=== PATIENT | male | born 1975 | race Caucasian/White ===

== ENCOUNTER 2017-10-30 08:00 | Emergency (ER) | payer OTHER ==
[2017-10-30 08:35] LABS: #Basophils 0.1 thou/uL (0.0-0.2); #Eosinphils 0.2 thou/uL (0.0-0.7); #Lymphocytes 2.1 thou/uL (1.20-3.40); #Monocytes 0.5 thou/uL (0.11-0.59); #Neutrophils 7.3 thou/uL (1.40-6.50); %Basophils 0.7 % (0.0-1.0); %Eosinophils 2.4 % (0.0-10.0); %Lymphocytes 20.1 % (21.0-51.0); %Monocytes 5.2 % (0.0-10.0); %Neutrophils 71.6 % (42.0-75.0); Hemoglobin 14.3 g/dL (14.0-18.0); Mean Corpuscular HGB CONC 32.3 g/dL (32.0-36.0); Mean Corpuscular Hemoglobin 29.6 pg (27.0-31.0); Mean Corpuscular Volume 91.7 fl (80.0-94.0); Mean Platelet Volume 9.7 fL (7.4-10.4); Platelet Count 151 thou/uL (130-400); Red Blood Cell (RBC) Count 4.84 mill/uL (4.70-6.10); White Blood Cell (WBC) Count 10.2 thou/uL (4.8-10.8)
[2017-10-30 08:54] LABS: ALT (SGPT) 25 U/L (8-55); AST (SGOT) 25 U/L (5-34); Albumin 4.7 g/dL (3.5-5.0); Alkaline Phosphatase 120 U/L (40-150); Anion Gap 16 mmol/L (10-20); BUN (Urea Nitrogen) 11 mg/dL (8.9-20.6); Bilirubin, Total 0.5 mg/dL (0.2-1.2); CK (CPK) 78 U/L (30-200); Calc. Creatinine Clearance 0 mL/min (70-130); Calcium 9.3 mg/dL (7.8-10.44); Carbon Dioxide 24 mmol/L (22-29); Chloride 102 mmol/L (98-107); Estimated GFR-MDRD 75; Globulin 4.2 g/dL (2.4-3.5); Glucose 125 mg/dL (70-105); Potassium 3.8 mmol/L (3.5-5.1); Protein, Total 8.9 g/dL (6.0-8.3); Sodium 138 mmol/L (136-145)
[2017-10-30 08:58] LABS: CKMB 1.1 ng/mL (0-6.6)
[2017-10-30 09:14] LABS: Troponin I Less than 0.010 ng/mL (< 0.028)
--- NOTE | 2017-10-30 09:24 | RAD ---
CHEST 1 VIEW: HISTORY: Chest pain. COMPARISON: 12/04/16. FINDINGS: Cardiac silhouette was magnified by projection. Pulmonary vasculature is upper limits of normal. Me diastinum is midline. There is no lobar consolidation or evidence of pneumothorax. telemetry monitor lead overlies the chest. IMPRESSION: No active cardiopulmonary abnormalities are demonstrated. POS: [facility]
[2017-10-30 10:49] LABS: Bilirubin Negative (Negative); Blood, Urine Negative (Negative); Clarity CLEAR (Clear); Glucose, Urine (Dipstick) Negative (Negative); Leukocyte Negative (Negative); Nitrite Negative (Negative); Protein, Urine (Dipstick) Negative (Neg-Trace); Urobilinogen 0.2 mg/dL (0.2-1.0); pH, Urine 6.5 (5.0-9.0)
[2017-10-30] MEDS ORDERED: Nitroglycerin 2% Ointment 1 INCH/1 GM Packet ONE (12:18)
[2017-10-30] MEDS ORDERED: Iopamidol 370 76% 50 ML VIAL FS ONE (13:03)
[2017-10-30] MEDS ORDERED: ISOVUE-370 76%-LOCM 1 ML ONE (13:03)
--- NOTE | 2017-10-30 15:03 | CT ---
CT ABDOMEN AND PELVIS WITH IV AND ORAL CONTRAST: History: Right lower quadrant pain. Comparison: 06-01-17 FINDINGS: Lung bases are clear. The liver, spleen, kidneys, adrenal glands, and pancreas have a normal CT appea padmini. No enlarged lymph nodes or free fluid are apparent. Appendix is not inflamed. IMPRESSION: No significant abnormalities are demonstrated. POS: [facility]
[2017-10-30 15:18] LABS: CKMB 1.2 ng/mL (0-6.6); Troponin I Less than 0.010 ng/mL (< 0.028)
--- NOTE | 2017-11-05 18:04 | EKG ---
Test Reason : CHEST PAIN Blood Pressure : / mmHG Vent. Rate : 090 BPM Atrial Rate : 090 BPM P-R Int : 176 ms QRS Dur : 080 ms QT Int : 372 ms P-R-T Axes : 081 059 062 degrees QTc Int : 455 ms Normal sinus rhythm Minimal voltage criteria for LVH, may be normal variant Nonspecific ST and T wave abnormality Abnormal ECG Confirmed by ANAM DIXON, ELVIA ([id number]), editor in chief ROSETTE MCGARRY ([id number]) on 11/05/2017 6:03:28 PM Referred By: ANAM Confirmed By:ELVIA MENDIETA MD
== END 2017-10-30 15:43 | disposition home or self-care (01) ==
LOC: ERS 08:00
DX: B34.9 Viral infection, unspecified (principal); R07.9 Chest pain, unspecified; R10.31 Right lower quadrant pain
CPT/HCPCS: 36415; 71045; 74177; 80053; 81003; 82274; 82550; 82553; 84484; 85025; 93005; 94760; 96360; 96361

== ENCOUNTER 2018-04-13 03:15 | Observation (INO) | payer BC ==
[2018-04-13 03:50] LABS: #Eosinphils 0.3 thou/uL (0.0-0.7); #Lymphocytes 1.9 thou/uL (1.20-3.40); #Monocytes 0.7 thou/uL (0.11-0.59); %Basophils 0.3 % (0.0-1.0); %Eosinophils 2.8 % (0.0-10.0); %Lymphocytes 19.3 % (21.0-51.0); %Monocytes 6.7 % (0.0-10.0); %Neutrophils 70.9 % (42.0-75.0); Hemoglobin 12.9 g/dL (14.0-18.0); Mean Corpuscular HGB CONC 34.2 g/dL (32.0-36.0); Mean Corpuscular Hemoglobin 29.7 pg (27.0-31.0); Mean Corpuscular Volume 86.9 fL (78.0-98.0); Mean Platelet Volume 9.1 fL (7.4-10.4); Platelet Count 155 thou/uL (130-400); RBC Distribution Width 13.2 % (11.5-14.5); Red Blood Cell (RBC) Count 4.32 mill/uL (4.70-6.10); White Blood Cell (WBC) Count 9.8 thou/uL (4.8-10.8)
[2018-04-13 04:16] LABS: ALT (SGPT) 24 U/L (8-55); AST (SGOT) 18 U/L (5-34); Albumin 4.3 g/dL (3.5-5.0); Alkaline Phosphatase 109 U/L (40-150); Anion Gap 16 mmol/L (10-20); BUN (Urea Nitrogen) 12 mg/dL (8.9-20.6); Bilirubin, Total 0.4 mg/dL (0.2-1.2); CK (CPK) 69 U/L (30-200); Calc. Creatinine Clearance 0 mL/min (70-130); Calcium 9.1 mg/dL (7.8-10.44); Carbon Dioxide 23 mmol/L (22-29); Chloride 103 mmol/L (98-107); Estimated GFR-MDRD 66; Globulin 3.4 g/dL (2.4-3.5); Glucose 156 mg/dL (70-105); Lipase 32 U/L (8-78); Potassium 3.7 mmol/L (3.5-5.1); Protein, Total 7.7 g/dL (6.0-8.3); Sodium 138 mmol/L (136-145)
[2018-04-13 04:19] LABS: CKMB 1.1 ng/mL (0-6.6); Troponin I Less than 0.010 ng/mL (< 0.028)
[2018-04-13] MEDS ORDERED: Nitroglycerin 0.4 MG TAB (25 Tab Bottle) ONE (05:50)
[2018-04-13] MEDS ORDERED: Morphine 4 MG/ML VIAL ONE (06:48)
[2018-04-13] MEDS ORDERED: Ondansetron HCl/PF 4 MG/2 ML Vial ONE (06:49)
[2018-04-13] MEDS ORDERED: Ondansetron ODT 4 MG TAB ONE (06:50)
[2018-04-13] MEDS ORDERED: Lorazepam 2 MG/ML VIAL ONE (07:34)
[2018-04-13 08:42] LABS: Troponin I Less than 0.010 ng/mL (< 0.028)
--- NOTE | 2018-04-13 08:53 | HP ---
DATE OF ADMISSION: 04/13/2018 HISTORY OF PRESENT ILLNESS: This is a 43-year-old white male who presents to the ER with chest pain. The patient states he was doing well until 2:00 a.m. this morning. While watching TV, he developed acute onset of chest pain, shortness of breath and diaphoresis. He has no prior cardiac history. Rosy albarran does not report any history of trauma or excessive physical activity. He does work as a truck driv er. He lives alone, does not smoke. He also complains of a right lower quadrant abdominal pain, whi ch has been present for 2 weeks. He also has been having bloody stools in which he showed me a pictu re with impressive blood in his underclothing. He has had constipation off and on, but not on a regu lar basis. His appetite has been okay. He is hungry at this time. No reported fever, nausea or vom iting. PAST MEDICAL HISTORY: Speech impairment. PAST SURGICAL HISTORY: Ear surgery in 1999. FAMILY HISTORY: Parents are healthy as well as siblings. Dad is a dentist. Mom is a RN. SOCIAL HISTORY: He does not smoke, does not drink. He is single. He is a armored truck driver. He has no children. ALLERGIES: None. REVIEW OF SYSTEMS: As above. MEDICATIONS: None. LABORATORY DATA AND IMAGING: White count 9.8, H&H is 12 and 37. Electrolytes normal. Creatinine 1. 20, BUN 12, blood sugar 156. Troponin one less than 0.010. Lipase 32. Liver functions normal. CTA and chest x-ray with final reports pending, but reported negative. ASSESSMENT: 1. Chest pain, rule out myocardial infarction. The chest pain seems to be right-sided and musculosk eletal in origin. 2. Right lower quadrant abdominal pain. The patient was seen by MIKE Renteria and was referred to GI. The patient is yet to see GI. 3. Bloody stools. Etiology is unknown. Genitourinary exam is unremarkable. PLAN: 1. Chest pain, rule out myocardial infarction. Serial troponins. 2. Echocardiogram. 3. CT of the abdomen and pelvis. 4. GI consult.
[2018-04-13 09:19] VITALS: BMI 30.2
[2018-04-13] MEDS ORDERED: Ondansetron HCl/PF 4 MG/2 ML Vial IVP PRN (09:24)
[2018-04-13] MEDS ORDERED: Ondansetron ODT 4 MG TAB PO PRN (09:24)
[2018-04-13] MEDS ORDERED: Acetaminophen 325 MG TAB PO PRN (09:24)
--- NOTE | 2018-04-13 09:25 | RAD ---
CHEST ONE VIEW: Comparison: 10-30-17 History: Chest pressure and pain. FINDINGS: Normal cardiac silhouette. The pulmonary vessels and hilum are normal. No consolidation or mass. Hog Raiser anel changes in the lung bases. No pneumothorax or osseous abnormality. IMPRESSION: No acute cardiopulmonary process. POS: [facility]
--- NOTE | 2018-04-13 09:34 | CT ---
CT PULMONARY ANGIOGRAM WITH IV CONTRAST AND 3D MIP RECONSTRUCTIONS: Date: 04-13-18 Provided Clinical History: Chest pain. FINDINGS: Comparison is made with a study dated 03-16-14. There is no evidence for central or segmental pulmonary embolus. The heart, pericardium, and great ve ssels demonstrate an unremarkable CT appearance. The lungs are free of significant opacity. There is no pleural fluid or pneumothorax apparent. The airway appears patent and of normal caliber. There is no evidence for thoracic lymph node enlargement. The visualized portions of the upper abdomen demonst rates no evidence for an acute process. The osseous demonstrates no concerning lytic or blastic lesio ns. IMPRESSION: No evidence for central or segmental pulmonary embolus. POS: [facility]
[2018-04-13] MEDS ORDERED: ISOVUE-370 76%-LOCM 1 ML ONE (11:25)
[2018-04-13] MEDS: Sodium Chloride 0.9% 1,000 ML IV SCH (11:27)
[2018-04-13 11:29] LABS: Troponin I Less than 0.010 ng/mL (< 0.028)
[2018-04-13] MEDS ORDERED: GoLYTELY 4,000 ml Bottle PO SCH (17:30)
--- NOTE | 2018-04-13 19:13 | CON ---
DATE OF CONSULTATION: 04/13/2018 PRIMARY UNDERWATER HUNTER TRAPPER: Dr. Miguel Beal. REASON FOR CONSULTATION: Chest pain. HISTORY OF PRESENT ILLNESS: Mr. Holbrook is a very pleasant 43-year-old white gentleman who comes to the hospital for chest pain. He was at home at 2:00 a.m. in the morning watching TV and developed acute onset of chest pain on the left side upper chest, shortness of breath and diaphoresis. He got worried and decided to come in for evaluation. So far, his troponins have been negative. He had a very similar presentation back in 11/2016 at which time he had a stress test that was abnormal showing a reversible defect on the mid anterior wall. Dr. Beal saw him at that time and offered a heart catheterization and looking at the note apparently, he was amenable to having this done, but then discharge summary shows that he actually left AMA and heart catheterization was not done as he refused to have it at that time. Today, he tells me that he is amenable to having this done as he continues to have the episodes of chest pain; however, he also shows me a picture on his phone of all the blood that he has been seen coming out of his rectum. He has pictures of several tissue papers with good amount of blood in them and he has noted some lower abdominal pain and right upper quadrant pain as well. He has been doing this on and off for the last 2-3 weeks the bleeding. Currently, he has been having chest pain, nonstop for the last day. He states he gets a little bit better when he gets pain medications. PAST MEDICAL HISTORY: Speech impairment. PAST SURGICAL HISTORY: Ear surgery in the year 1999. FAMILY HISTORY: Noncontributory. Father is a dentist. Mother is an RN. SOCIAL HISTORY: No alcohol, tobacco or drugs. Single. 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 ALLERGIES: No known drug allergies. OUTPATIENT MEDICATIONS: None. REVIEW OF SYSTEMS: A 12-point review of systems was done and is all negative unless stated in history of present illness. PHYSICAL EXAMINATION: VITAL SIGNS: Temperature 97.5, pulse 71, respiration rate 12, satting 96% on room air, blood pressure 131/72. GENERAL: Awake, alert, oriented x3, in no distress, has difficulty with speech , but this is consistent with a speech impediment. HEENT: Normocephalic, atraumatic. NECK: Supple. LUNGS: Clear. CARDIOVASCULAR: S1, S2, no S3 or S4, no murmurs or rubs. ABDOMEN: Soft, positive bowel sounds. EXTREMITIES: No edema. SKIN: Warm and dry. LABORATORY WORK: Reviewed. His CBC with a white count of 9.8, hemoglobin of 12.9 with a baseline of 14.3, he was at 12.7 just a month ago. Platelet count of 155. Chemistry was unremarkable except for glucose of 156. Troponin has been undetectable x3 with a normal CK-MB, normal LFTs and normal lipase. EKG was unremarkable. CT of the chest done earlier today shows no evidence of pulmonary embolus, otherwise unremarkable. No evidence of lymph node enlargement. Upper abdomen showed no evidence of acute process. ASSESSMENT AND PLAN: Chest pain: He has an abnormal stress test done last year. Repeating a stress would not provide any further risk stratification. Most likely, he just needs a heart catheterization. I would think it is prohibitive at this time. If he has bleeding, GI has been consulted and I would wait to have them evaluate the patient and hopefully do a colonoscopy to make sure there are no active areas of bleeding. Will need a [facility] in the future. I spoke with him at length with the risks and benefits of the procedure. The risks include, but not limited to stroke, NV, , bleeding, need for blood transfusion, limb loss, organ loss. He verbalized understanding of this and agrees to proceed. I told him this is only going to happen once he has his colonoscopy to see if this is a problem with bleeding. Thank you for letting us participate in the care of your patient. Dr. Beal , his primary applications chemist, will follow up in the morning. GUS
--- NOTE | 2018-04-14 02:02 | CON ---
DATE OF CONSULTATION: 04/13/2018 REFERRING PHYSICIAN: Dr. Siddharth De Los Santos. REASON FOR CONSULTATION: GI bleeding. HISTORY OF PRESENT ILLNESS: Isidro Holbrook is a 43-year-old male hospitalized with chest pain . The patient appears very comfortable. He is awake, alert, and communicative. The patient has deepika e speech impairment and history is somewhat difficult to understand sometime. The admitting history and physical by Dr. Siddharth De Los Santos reviewed. He appears very healthy young male who has had no medical problems in the past. The patient has had speech impediment, which is chronic in nature. The patie nt has had no major medical illness in the past. The patient came to ER because of chest pains which occurred during watching TV last night. The pain was actually over the anterior chest. He also has some difficulty breathing to begin with. The patient has had no similar episodes in the past. Ther e has been no history of any acid reflux, dysphagia, odynophagia. He denies any upper abdominal pain . His plain EKG was normal. His cardiac enzymes negative. He also had a CT angiogram, which came b ack negative for PE. The patient is actually feeling better and the pain is actually almost vague an d is causing very mild discomfort. His bowel movements are regular. There is no other relevant hist ory. The patient gives history of rectal bleeding to Dr. De Los Santos a couple of weeks ago. The bleeding was bright red and he had moderate amount of blood. Although he has history of constipation, he say s he does not strain that much. The bleeding was painless and bright in color. Apparently, the blee ding occurs out of a couple of days off and on. He has no more bleeding afterwards. There is no fam isai history of any colon cancer. No other relevant history. ALLERGIES: None. PAST MEDICAL HISTORY: Speech impediment. PAST SURGICAL HISTORY: Ear surgery in 1999. FAMILY HISTORY: Totally unremarkable. REVIEW OF SYSTEMS: DAG COATER: No TIA, chronic headache, no seizure disorder, no syncope. Respiratory Sys tem: No history of chronic cough, hemoptysis, dyspnea. Cardiovascular System: Chest pain, which washburn s been resolving. Also, mild dyspnea. He has no orthopnea, PND, or palpitations. Gastrointestinal: History of hematochezia, no abdominal pain, nausea, or vomiting. Genitourinary: No dysuria, hemat uria, or frequent urination. Musculoskeletal/Endocrine/Neuro/Psychiatry: Not relevant. PHYSICAL EXAMINATION: GENERAL: He appears very comfortable in no distress. His speech is impaired. VITAL SIGNS: Afebrile, pulse is 71, blood pressure 130/72. HEENT: Conjunctivae clear. NECK: Supple. No adenitis or thyromegaly noted. CARDIOVASCULAR SYSTEM: First and second heart sounds normal. LUNGS: Clear to auscultation. ABDOMEN: Soft. Abdomen is nontender. There is no organomegaly or masses. EXTREMITIES: Reveal no edema. LABORATORY DATA: CBC shows WBC 9800, hemoglobin 12.9, hematocrit 37.6, MCV 86.9, platelet count 155, 000, polymorphs 70, lymphocytes 19, monocytes 6. Chemistry panel: Glucose 156, lytes are normal. B UN is 12, creatinine 1.20. AST 18, ALT 24, alkaline phosphatase is 109. CPK 1.1. Troponin less lydia n 0.010, albumin is 4.3. EKG does not show any acute changes. CLINICAL IMPRESSION: 1. A 43-year-old male with history of chest pain. His EKG and enzymes are normal. He pain has . 2. Hematochezia, etiology unclear. 3. Speech impediment. I did talk to Mr. Holbrook about having a colonoscopy, because of hematochezia an d following EGD. He is agreeable. I will plan for the procedure tomorrow.
[2018-04-14] MEDS: Sodium Chloride 0.9% 1,000 ML IV SCH (07:35)
--- NOTE | 2018-04-14 08:25 | PRG ---
DATE OF SERVICE: 04/14/2018 at 8:00 a.m. SUBJECTIVE: The patient's pain remains very vague. No complaints of chest pain at this time, but he states it sort of comes and goes and has less intensity at this time. Abdominal pain remains. He did drink his GoLYTELY for his colonoscopy. However, he states he has not had a bowel movement. Due to his speech impediment is very difficult to get a clear history on patient. OBJECTIVE: VITAL SIGNS: Temperature 97.3, pulse 78, respirations 18, blood pressure 115/60. GENERAL: The patient does not appear in any distress. HEART: Regular rate and rhythm. LUNGS: Clear. ABDOMEN: Soft, normal bowel sounds. LABORATORY: None. ASSESSMENT: 1. Chest pain. Further evaluation pending GI workup. The patient does have a history of abnormal s tress test. Dr. Lane or Dr. Beal may want to do a cardiac catheterization depending on the GI evaluation. 2. Abdominal pain. The patient drank his prep and is being transferred this morning for his EGD and colonoscopy by Dr. Ruby. 3. Speech impediment. 4. History of bloody stools. PLAN: 1. EGD and colonoscopy this morning. 2. Possibly may have a cardiac catheterization depending on GI evaluation.
[2018-04-14] MEDS ORDERED: Fentanyl 100 MCG/2 ML VIAL ONE (11:05)
[2018-04-14] MEDS ORDERED: Lidocaine 1% PF 5 ML VIAL ONE (14:01)
[2018-04-14] MEDS ORDERED: PROPOFOL 200 MG/20 ML VIAL ONE (14:01)
[2018-04-14 15:35] VITALS: BP 128/73; TEMP 97.2
--- NOTE | 2018-04-14 16:29 | CT ---
CT ABDOMEN AND PELVIS WITH IV AND ORAL CONTRAST 04/14/18 HISTORY: Hematochezia. COMPARISON: 06/01/17 HISTORY: Lung bases are clear. Liver, spleen, kidneys, adrenal glands, and pancreas have a normal CT appearanc e. No enlarged lymph nodes or free fluid. Urinary bladder is unremarkable. No evidence of colon infla mmation. IMPRESSION: No significant abnormalities are demonstrated. POS: [facility]
--- NOTE | 2018-04-15 02:37 | DIS ---
DATE OF ADMISSION: 04/13/2018 DATE OF DISCHARGE: 04/14/2018 DISCHARGE DIAGNOSES: 1. Peptic ulcer disease. 2. Abdominal pain. 3. Chest pain. 4. Speech impediment. DISCHARGE MEDICATIONS: Omeprazole 40 daily, #60. FOLLOWUP: Dr. Siddharth De Los Santos in 1 week. BRIEF HISTORY: This is a 43-year-old white male who presents to the emergency room with chest pain. Doing well until about 2:00 a.m. in the morning. While watching TV, developed acute onset of chest pain with shortness of breath and diaphoresis. He has no cardiac history. He does not report any hi story of trauma or excessive physical activity. He does work as a truck loader. He also showed pict ures of blood in the stool on his phone and he also complains of having chronic abdominal pain, espec ially right lower quadrant. HOSPITAL COURSE: The patient received a CT angio of the chest in the emergency room, which was found to be unremarkable. The patient is a very difficult historian due to his speech impediment. He pro connie limited history. Dr. Ruby was consulted and an EGD revealed peptic ulcer disease. Colono scopy revealed large amounts of stool. Evidently, the patient poured out the colonoscopy prep in the sink. He also has a history of abnormal Cardiolite stress test, in which he refused a cardiac cath in the past. Right now, he is chest pain free, feeling much better. He will be discharged on omepra zole. He will follow up in the office in one week. He does not appear to have any type of cardiac i ssue. He was also seen by Dr. Lane.
--- NOTE | 2018-04-15 03:08 | OP ---
DATE OF SURGERY: 04/14/2018 OPERATIVE PROCEDURE: Esophagogastroduodenoscopy with biopsy. PREOPERATIVE DIAGNOSIS: Atypical chest pain. POSTOPERATIVE DIAGNOSES: 1. Esophageal mucosa appears normal except for mild mucosal hyperemia. 2. Gastric ulcer with gastritis over the proximal stomach. 3. Antral erosion of the gastric antrum. 4. Normal duodenum. PROCEDURE NOTE: The patient was placed on his left lateral position and was given sedation by Anesth esia Department. A Pentax video gastroscope under direct vision was passed down the oropharynx, past the GE junction, into the stomach, and subsequently into the descending duodenum. The esophageal mu cosa appeared normal over the upper two-thirds. Over the distal esophagus, the mucosa is hyperemic, but no other erosions or any ulceration seen. Upon entering the stomach, the patient was found to washburn ve an ulceration over the gastric body over the proximal stomach. Also, the mucosa was edematous and erythematous. Over the gastric antrum, patient had a small erosion. , no pathology seen. The duodenal bulb, descending duodenum, no pathology seen. A biopsy of the gastric antrum and gastric devang dy. RECOMMENDATION: 1. Omeprazole 40 once a day. 2. If the LISETH test comes positive, treat accordingly.
--- NOTE | 2018-04-15 04:57 | OP ---
DATE OF PROCEDURE: 04/14/2018 OPERATIVE PROCEDURE: Colonoscopy, incomplete. PREOPERATIVE DIAGNOSIS: Hematochezia. POSTOPERATIVE DIAGNOSES: 1. No hemorrhoids seen. 2. The mucosa appears normal. The patient had large amount of solid fecal material right from the s igmoid colon area all the way to the descending colon. The scope could not be advanced and pass arou nd 60 cm, because of the solid stool. PROCEDURE IN DETAIL: The patient was placed on his left lateral position and underwent sedation by A nesthesia Department. A rectal exam was done before the scope was advanced into the rectum. No lesi on was felt on rectal exam. A Pentax video colonoscope was introduced into rectum and advanced into the sigmoid colon area. The rectal mucosa appeared normal. The patient found to have solid stool ri ght at the sigmoid colon area. Water was used to irrigate and wash out, and I was able to advance th e scope to a distance of about 65-70 cm. However, around 70 cm , the patient found to have a la rge amount of solid stool, and the scope could not be advanced . The mucosa appeared normal and no colitis seen. There is no pathology seen in the left colon; however, the exam was limited becaus e of the solid stool. The retroflexion of the scope in the rectum showed no lesion. RECOMMENDATIONS: 1. Diet as tolerated. 2. Omeprazole 40 once a day. 3. The patient can be discharged home and bring him back as an outpatient for a colonoscopy at a [facility] er date.
[2018-04-15] MEDS ORDERED: Pantoprazole 40 MG GRANULES PACKET PO SCH (09:00)
== END 2018-04-14 17:40 | disposition home or self-care (01) ==
LOC: ERS 03:15 → 2SW 08:39
PROVIDERS: ADMIT Family Medicine; ATTEND Internal Medicine Gastroenterology
PROC: 0DJD8ZZ Inspection of Lower Intestinal Tract, Via Natural or Artificial Opening Endoscopic (ICD-10-PCS; principal; 2018-04-14)
PROC: 0DB78ZX Excision of Stomach, Pylorus, Via Natural or Artificial Opening Endoscopic, Diagnostic (ICD-10-PCS; 2018-04-14)
DX: K92.1 Melena (principal); K27.9 Peptic ulcer, site unspecified, unspecified as acute or chronic, without hemorrhage or perforation; R47.9 Unspecified speech disturbances
CPT/HCPCS: 36415; 71045; 71275; 74177; 80053; 82550; 82553; 83690; 84484; 85025; 88305; 88312; 93005; 93306; 94760; 96361; 96374; 96375; 96376; G0378; J2001; J2060; J2270; J2405; J2704; J3010; Q0162

== ENCOUNTER 2018-04-16 01:53 | Emergency (ER) | payer BC ==
[2018-04-16] MEDS ORDERED: Pantoprazole 40 MG VIAL ONE (02:20)
[2018-04-16] MEDS ORDERED: Mag-Al Plus 1200 MG/1200 MG/120 MG/30 ML UDCUP ONE (02:20)
[2018-04-16] MEDS ORDERED: Lidocaine Viscous Sol 2% 15 ml UD Cup ONE (02:20)
[2018-04-16 02:23] LABS: PTT 30.9 SEC (22.9-36.1); Prothrombin Time 13.4 SEC (12.0-14.7)
[2018-04-16 02:30] LABS: #Basophils 0.1 thou/uL (0.0-0.2); #Eosinphils 0.2 thou/uL (0.0-0.7); #Lymphocytes 1.1 thou/uL (1.20-3.40); #Monocytes 0.5 thou/uL (0.11-0.59); #Neutrophils 6.7 thou/uL (1.40-6.50); %Basophils 0.7 % (0.0-1.0); %Eosinophils 2.8 % (0.0-10.0); %Lymphocytes 12.8 % (21.0-51.0); %Monocytes 6.1 % (0.0-10.0); %Neutrophils 77.6 % (42.0-75.0); Hemoglobin 12.3 g/dL (14.0-18.0); Mean Corpuscular HGB CONC 34.3 g/dL (32.0-36.0); Mean Corpuscular Hemoglobin 28.4 pg (27.0-31.0); Mean Corpuscular Volume 82.7 fL (78.0-98.0); Mean Platelet Volume 12.1 fL (7.4-10.4); PLT Morphology Comment Appears Adequate; Platelet Count 135 thou/uL (130-400); RBC Distribution Width 12.6 % (11.5-14.5); Red Blood Cell (RBC) Count 4.35 mill/uL (4.70-6.10); White Blood Cell (WBC) Count 8.7 thou/uL (4.8-10.8)
[2018-04-16 02:34] LABS: CKMB 0.8 ng/mL (0-6.6); Troponin I Less than 0.010 ng/mL (< 0.028)
[2018-04-16] MEDS ORDERED: Famotidine 20 MG TAB ONE (03:03)
[2018-04-16] MEDS ORDERED: Acetaminophen 500 MG TAB ONE (03:03)
[2018-04-16 03:27] LABS: ALT (SGPT) 22 U/L (8-55); AST (SGOT) 16 U/L (5-34); Albumin 4.2 g/dL (3.5-5.0); Alkaline Phosphatase 105 U/L (40-150); Anion Gap 16 mmol/L (10-20); BUN (Urea Nitrogen) 11 mg/dL (8.9-20.6); Bilirubin, Total 0.3 mg/dL (0.2-1.2); CK (CPK) 70 U/L (30-200); Calc. Creatinine Clearance 0 mL/min (70-130); Carbon Dioxide 23 mmol/L (22-29); Chloride 102 mmol/L (98-107); Estimated GFR-MDRD 67; Globulin 3.2 g/dL (2.4-3.5); Glucose 160 mg/dL (70-105); Potassium 3.8 mmol/L (3.5-5.1); Protein, Total 7.4 g/dL (6.0-8.3); Sodium 137 mmol/L (136-145)
--- NOTE | 2018-04-16 08:20 | RAD ---
RADIOGRAPH CHEST 1 VIEW: HISTORY: 43-year-old male with intermittent chest pain and dyspnea. FINDINGS: There is no air space density, pulmonary edema, or pneumothorax. The lateral costophrenic angles are sharp. IMPRESSION: No acute pulmonary findings. clementine [] POS: [facility]
--- NOTE | 2018-04-18 08:20 | OP ---
DATE OF PROCEDURE: 04/18/2018 SURGEON: Ariel Ruby M.D. OPERATIVE PROCEDURE: Colonoscopy. PREOPERATIVE DIAGNOSIS: A 43-year-old male with hematochezia. He is undergoing a colonosc opy. POSTOPERATIVE DIAGNOSIS: Normal colonoscopy. PROCEDURE IN DETAIL: The patient was placed on his left lateral position and was given sedation by A nesthesia Department. A rectal exam was done before the scope was advanced into the rectum. No othe r lesion felt on rectal exam. Also, careful exam of the perianal opening showed no fissure or hemorr hoids. A Pentax video colonoscope was introduced in the rectum and advanced all the way to the cecum . The prep was good. The mucosa appears normal throughout the colon with normal vascular pattern. The appendiceal orifice, ileocecal valve, cecum, no pathology seen. Cecum, ascending colon, hepatic flexure, transverse colon, splenic flexure, no pathology seen. The descending colon, no pathology se en. The sigmoid colon, no lesions seen. Retroflexion of scope in the rectum, no lesions. Also, on inspection of the anal canal showed no fissure or hemorrhoids. ENDOSCOPIC IMPRESSION: History of hematochezia, but negative exam. It is possible the patient may b e had constipation, straining and had a mucosal tear. At the present time, the exam was completely b enign. RECOMMENDATIONS: 1. High fiber diet. 2. Metamucil.
== END 2018-04-16 03:47 | disposition home or self-care (01) ==
LOC: SCSER 01:53
DX: K27.9 Peptic ulcer, site unspecified, unspecified as acute or chronic, without hemorrhage or perforation (principal)
CPT/HCPCS: 71045; 80053; 82274; 82553; 84484; 85025; 85610; 85730; 93005; 94760; C9113

== ENCOUNTER 2018-04-16 11:25 | Observation (INO) | payer BC ==
[2018-04-16 12:17] LABS: #Lymphocytes 0.4 thou/uL (1.20-3.40); #Neutrophils 7.1 thou/uL (1.40-6.50); %Eosinophils 0.5 % (0.0-10.0); %Lymphocytes 5.2 % (21.0-51.0); %Monocytes 0.4 % (0.0-10.0); %Neutrophils 93.9 % (42.0-75.0); Hemoglobin 12.3 g/dL (14.0-18.0); Mean Corpuscular HGB CONC 32.2 g/dL (32.0-36.0); Mean Corpuscular Hemoglobin 28.8 pg (27.0-31.0); Mean Corpuscular Volume 89.5 fL (78.0-98.0); Mean Platelet Volume 9.2 fL (7.4-10.4); Platelet Count 128 thou/uL (130-400); RBC Distribution Width 13.2 % (11.5-14.5); Red Blood Cell (RBC) Count 4.25 mill/uL (4.70-6.10); White Blood Cell (WBC) Count 7.6 thou/uL (4.8-10.8)
[2018-04-16 12:33] LABS: ALT (SGPT) 21 U/L (8-55); AST (SGOT) 16 U/L (5-34); Alkaline Phosphatase 103 U/L (40-150); Anion Gap 17 mmol/L (10-20); BUN (Urea Nitrogen) 10 mg/dL (8.9-20.6); Bilirubin, Total 0.2 mg/dL (0.2-1.2); Calc. Creatinine Clearance 0 mL/min (70-130); Calcium 8.3 mg/dL (7.8-10.44); Carbon Dioxide 16 mmol/L (22-29); Chloride 108 mmol/L (98-107); Estimated GFR-MDRD 72; Globulin 3.2 g/dL (2.4-3.5); Glucose 220 mg/dL (70-105); Potassium 4.2 mmol/L (3.5-5.1); Protein, Total 7.2 g/dL (6.0-8.3); Sodium 137 mmol/L (136-145)
[2018-04-16 12:37] LABS: Troponin I Less than 0.010 ng/mL (< 0.028)
[2018-04-16] MEDS ORDERED: Nitroglycerin 2% Ointment 1 INCH/1 GM Packet ONE (12:37)
[2018-04-16 13:05] LABS: CK (CPK) 73 U/L (30-200)
[2018-04-16 17:12] LABS: Troponin I Less than 0.010 ng/mL (< 0.028)
[2018-04-16] MEDS ORDERED: Ondansetron ODT 4 MG TAB SL PRN (17:35)
[2018-04-16] MEDS ORDERED: Ondansetron HCl/PF 4 MG/2 ML Vial IVP PRN (17:35)
[2018-04-16 18:10] VITALS: BMI 30.9
[2018-04-16] MEDS: Acetaminophen 325 MG TAB PO PRN (19:00)
[2018-04-16 19:23] LABS: Troponin I Less than 0.010 ng/mL (< 0.028)
[2018-04-16] MEDS ORDERED: Mag-Al 1200 mg/1200 mg/30 ML UDCUP PO PRN (22:33)
--- NOTE | 2018-04-17 02:15 | HP ---
PRIMARY CARE PHYSICIAN: Dr. Myra Hearn and Dr. Siddharth De Los Santos. HISTORY OF PRESENT ILLNESS: This is a 43-year-old white male who presented to emergency department w ith persistent chest pain. Patient states that he has been in his usual state of health until last w [place] when he developed substernal chest pain while he was watching TV. He was admitted on 04/13/2018 and discharged on 04/14/2018 for similar symptoms. He underwent an extensive workup at that time, he ruled out for an RI with negative cardiac enzymes. He had a normal echocardiogram. He was seen by Dr. Lane at that time who recommended cardiac catheterization, the patient declined it at that time . He also had bloody stools and GI workup was done with Dr. Ruby. The patient had abnormal EGD , which revealed gastritis and a gastric ulcer as well as antral erosions in the stomach as well, but normal duodenum. He was started on omeprazole at that time to aid in healing. Occult test was done at that time, but the results are not available and was discharged home, but has had multiple emerge ncy room visits since that time due to his chest pain. At this point, he appears ready to have furth er workup to rule out coronary artery disease, is now being admitted for further evaluation. Of note , he also had a CT angiogram on the last admission which was normal. PAST MEDICAL HISTORY: New onset of peptic ulcer disease. PAST SURGICAL HISTORY: EGD and incomplete colonoscopy on last admission. MEDICATIONS: Include omeprazole 40 mg once daily. SOCIAL HISTORY: No smoking, no alcohol, no drug use. 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 FAMILY HISTORY: Mom with gallstone disease. Father with bypass and heart disease. He works as a de [employer]ist. ALLERGIES: None known. REVIEW OF SYSTEMS: As per the history of present illness. He denies any recent fevers, chills or re cent illness. HEENT: He denies headache, visual or hearing changes. Cardiac: As per the history o f present illness. Pulmonary: Denies cough or hemoptysis. Gastrointestinal: As per the history of present illness. He admits to some stomach pains worse as his chest pain. Genitourinary: No dysur ia or hematuria. Neurologic: No weakness, seizures, or syncope. Psychiatric: He denies anxiety. Denies depression. He is not happy with his job. Denies suicidal ideation. He just wants his pain to go away. OBJECTIVE: VITAL SIGNS: In the emergency department, temperature 98.5, pulse of 100, respirations 18, blood pre ssure 145/76, pulse ox is 97% on room air. GENERAL: He is awake and alert. He appears anxious in bed. He does have a speech impediment. HEENT: Mucosa is moist. NECK: Supple. HEART: Regular rate and rhythm. LUNGS: Clear bilaterally. ABDOMEN: With some epigastric tenderness as well as right lower quadrant tenderness. No rebound, no guarding, no hepatosplenomegaly. EXTREMITIES: No clubbing, cyanosis, or edema. 2+ peripheral pulses bilaterally. LABORATORY DATA: White blood cell count 7.6, hemoglobin and hematocrit 12.3 and 38.0, platelets of 1 28,000. PT, PTT were normal. Sodium 137, potassium 4.2, chloride 108, CO2 16, BUN and creatinine 10 and 1.11 with a GFR of 72. Serum glucose was elevated at 220, calcium of 8.3. AST and ALT are norm al. Bilirubin was normal. Cardiac enzymes are negative x3. Fasting cholesterol in March was elevate d at 217 with LDL of 155, HDL of 38. Her lipase was 38. IMAGING: Past workup was reviewed. A chest x-ray showed no active disease. A CT angiogram of the c hest on 04/13/2018, revealed no acute disease. Again, EGD revealed gastritis and gastric ulcer. No active bleeding. A stress test from 11/2016, revealed ejection fraction of 62% and reversibility in the mid anterior left ventricle. ASSESSMENT AND PLAN: 1. This is a 43-year-old gentleman with persistent chest pain. He has had an extensive workup, but is needing further risk stratification with a cardiac catheterization. He has ruled out for myocardi al infarction. We will consult Cardiology and hopefully be able to perform a cardiac catheterization soon to rule out coronary artery disease. 2. Peptic ulcer disease. We will continue proton-pump inhibitor IV twice a day. 3. Hyperlipidemia. We will start statin therapy as well.
[2018-04-17] MEDS: Acetaminophen 325 MG TAB PO PRN (03:11)
[2018-04-17 05:07] LABS: Hemoglobin A1c 5.4 % (4.0-6.0)
--- NOTE | 2018-04-17 07:31 | PRG ---
DATE OF SERVICE: 04/17/2018 SUBJECTIVE: The patient continues to complain of chest pain, requesting pain medications, particular ly morphine. The patient complains of chest pain, substernal tightness, with no obvious triggers occ urring at rest. Evidently a nitroglycerin patch was placed on his chest. However, he removed it. OBJECTIVE: VITAL SIGNS: Temperature 97.6, pulse 69, respirations 16, pulse ox 95, blood pressure 115/63. HEART: Regular rate and rhythm. LUNGS: Clear. ABDOMEN: Soft. EXTREMITIES: No edema. LABORATORY: Cardiac enzymes were all negative x3. Blood sugar 220, 130. ASSESSMENT: 1. Chest pain, rule out myocardial infarction. 2. Peptic ulcer disease, status post EGD last visit. 3. Questionable history of alcohol abuse according to the nurses. 4. Speech impediment. PLAN: 1. Consider element of alcoholism and depression. 2. Patient agreeable to cardiac catheterization after declining twice. 3. Might consider treating the patient for depression.
[2018-04-17] MEDS ORDERED: Non-Formulary Item 1 EACH (Omeprazole [Omeprazole] 40 MG) PO SCH (09:00)
[2018-04-17] MEDS: Pantoprazole 40 MG VIAL IVP SCH ×2 (11:46→20:34)
[2018-04-17] MEDS ORDERED: Bisacodyl 5 MG TAB PO SCH (13:30)
[2018-04-17] MEDS ORDERED: GoLYTELY 4,000 ml Bottle PO SCH (13:30)
[2018-04-17] MEDS ORDERED: Acetaminophen 325 MG TAB PO PRN (20:09)
[2018-04-17] MEDS: Atorvastatin Calcium 40 MG TAB PO SCH (20:33)
[2018-04-17] MEDS: Nitroglycerin 0.4 MG TAB (25 Tab Bottle) SL PRN ×3 (21:25→21:35)
--- NOTE | 2018-04-18 01:15 | CON ---
DATE OF CONSULTATION: 04/17/2018 HISTORY: Isidro Holbrook is a 43-year-old white male I initially evaluated in 2016. He has had multiple previous admissions for chest discomfort. In 06/2008 , he had chest discomfort which was felt to be due to costochondritis. Cardiac enzymes were unremarkable. In 03/2014, he was admitted with chest discomfort. He was discharged and returned 3 days later again complaining of chest pain. He underwent Cardiolite testing, which revealed a fixed defect involving the inferior wall, but no evidence of reversible ischemia. It was felt that probably represented diaphragmatic attenuation. He was again admitted in 11/2016 with chest pressure which was somewhat of a pleuritic component. Episodes were lasted up to 1 hour and did not seem to be related to exertion. Cardiac enzymes were negative. He underwent adenosine Cardiolite testing and had a 5.4 second episode of complete heart block without any escape rhythm. Cardiolite revealed a fixed defect in the inferolateral wall and reversible ischemia in the anterior left ventricle. With that finding , it was recommended he undergo cardiac catheterization; however, he signed out AMA. He again was admitted earlier this month on 04/13 with increased chest discomfort. He also developed gastrointestinal bleeding. He underwent CT angiogram of the chest which was unremarkable. He underwent EGD which revealed peptic ulcer disease. However, this was not bleeding. He also underwent colonoscopy which revealed a large amount of retained stool. Apparently, he had poured his colonoscopy prep in the sink. He was discharged to be further evaluated as an outpatient. The patient now returns stating he wishes to proceed with cardiac catheterization. However, the etiology of his lower gastrointestinal bleed is still not known. PAST MEDICAL HISTORY: Peptic ulcer disease, speech impediment and hypercholesterolemia. No history of diabetes or hypertension. MEDICATIONS: Omeprazole 40 mg daily. ALLERGIES: None. SOCIAL HISTORY: He does not smoke or drink, although there is some question about his alcohol intake. He works as a trucking contractor. FAMILY HISTORY: Negative for coronary artery disease. REVIEW OF SYSTEMS: Twelve-point review of systems is unremarkable. PHYSICAL EXAMINATION: VITAL SIGNS: Blood pressure 139/74, pulse of 86. HEENT: PERRL. NECK: Supple. CHEST: Clear. CARDIAC: S1, S2 normal, without any S3, S4 or murmurs. ABDOMEN: Normal bowel sounds, without tenderness or organomegaly. EXTREMITIES: Revealed no clubbing, cyanosis or edema. NEUROLOGIC: Grossly intact. IMPRESSION: 1. Lower gastrointestinal bleeding. 2. Peptic ulcer disease. 3. Inferolateral fixed defect and ischemia in the mid anterior wall on Cardiolite testing in 11/2016. This has never been evaluated. 4. Atypical chest discomfort with constant chest pressure lasting all day. 5. Hypercholesterolemia. PLAN: The etiology of his lower gastrointestinal bleed needs to be determined. He is currently undergoing another valve prep and hopefully an etiology will be found. Once we had better assessment of his gastrointestinal bleeding, then consideration will be given to cardiac catheterization. Risks of catheterization were discussed including , myocardial infarction, CVA, transfusion, limb loss, renal loss, allergic reaction, etc. Risks of stenting were discussed including , myocardial infarction, emergent CABG, restenosis , stent thrombosis. With his recurrent lower gastrointestinal bleed, I would only place a bare metal stent. GUS
[2018-04-18] MEDS: Nitroglycerin 0.4 MG TAB (25 Tab Bottle) SL PRN ×3 (02:45→03:07)
[2018-04-18] MEDS ORDERED: Ketorolac Tromethamine 30 MG/ML VIAL IVP SCH (03:45)
[2018-04-18] MEDS ORDERED: Promethazine HCl 25 MG/ML VIAL IM PRN (07:59)
[2018-04-18] MEDS ORDERED: Ondansetron HCl/PF 4 MG/2 ML Vial IVP PRN (07:59)
[2018-04-18] MEDS ORDERED: Promethazine HCl 25 MG/ML VIAL SLOW IVP PRN (07:59)
--- NOTE | 2018-04-18 08:50 | PRG ---
DATE OF SERVICE: 04/18/2018 SUBJECTIVE: No incidents reported last night by nurses. The patient has remained relatively stable. No complaints of chest pain or shortness of breath. OBJECTIVE: VITAL SIGNS: Temperature 98.4, pulse 77, respirations 16, pulse ox 99, blood pressure 109/68. HEART: Regular rate and rhythm. LUNGS: Clear. ABDOMEN: Soft, nontender. LABORATORY DATA: None. PROCEDURE: Colonoscopy performed this morning, completely normal colon. No source of bleeding. Dis cussed with Dr. Ruby. ASSESSMENT: 1. Chest pain, rule out myocardial infarction. He has been cleared by GI. Discussed with Dr. Jeremiah culp. Plan for cardiac catheterization in the a.m. 2. Peptic ulcer disease shown on EGD, small gastric ulcer noted. 3. Alcohol abuse reported by nurses. 4. Speech impediment. PLAN: 1. N.p.o. past midnight. 2. Consent for cardiac catheterization in the a.m. 3. Consider treating depression. 4. May also have to discuss alcohol use.
[2018-04-18] MEDS: Pantoprazole 40 MG VIAL IVP SCH ×2 (09:04→20:30)
[2018-04-18] MEDS ORDERED: PROPOFOL 200 MG/20 ML VIAL ONE (10:08)
[2018-04-18] MEDS ORDERED: Lidocaine 1% PF 5 ML VIAL ONE (10:08)
--- NOTE | 2018-04-18 12:29 | CON ---
DATE OF CONSULTATION: 04/17/2018 REFERRING PHYSICIAN: Siddharth De Los Santos M.D. REASON FOR CONSULTATION: Hematochezia. HISTORY OF PRESENT ILLNESS: Mr. Isidro Holbrook is a 43-year-old male, seen over a week ago be cause of atypical chest pain and hematochezia. He had an EGD done on Tuesday, which revealed a shallo w gastric ulcer, gastritis over the proximal stomach. A colonoscopy was attempted; however, he had n ot cleaned out a large amount of solid stool. The patient signed out, again he does not want to have any cardiac catheterization and went home over the weekend. He came back to the ER with chest pain and also hematochezia. The patient has no abdominal pain. There is no perianal discomfort. Althoug h, he has history of hematochezia, his blood count has really not dropped down since the last admissi on. CBC done on 04/16/2018 showed WBC of 8700, hemoglobin 12.3, hematocrit 36, a repeat one again sh ows the same numbers, nothing change. On 04/13/2018, he had a hemoglobin 12.9 and 12.5 respectively. So although he has had history of hematochezia, his platelet count has really not dropped down. He has no relevant history. ALLERGIES: None. MEDICAL ILLNESSES: Speech impairment. The rest of the history is from the last admission. PHYSICAL EXAMINATION: GENERAL: He appears very comfortable. He is awake, alert, and communicative. VITAL SIGNS: Afebrile, pulse is 76, blood pressure is 130/82. HEENT: Conjunctivae clear. CARDIOVASCULAR SYSTEM AND LUNGS: Within normal limits. ABDOMEN: Soft. No organomegaly. No tenderness. No masses. EXTREMITIES: Reveal no edema. CLINICAL IMPRESSION: Hematochezia, no drop in hemoglobin. He is mildly anemic and the numbers are r eally not change since last admission. A colonoscopy attempted on Tuesday04/14/2018 was incomplete b ecause of retained stool. I will plan to do a colonoscopy tonight and now at that time it was around 10:00. He is drinking the [employer] prep. He still has some left. Plan is to finish the prep tonig ht and hopefully a colonoscopy can be performed earlier tomorrow morning.
[2018-04-18] MEDS: HYDROcodone/Acetaminophen 7.5/325 mg Tablet PO PRN ×2 (15:44→21:56)
[2018-04-18] MEDS ORDERED: Communication Order-Pharmacy FS SCH (17:00)
[2018-04-18] MEDS: Sodium Chloride 0.9% 1,000 ML IV SCH (17:38)
[2018-04-18] MEDS: Atorvastatin Calcium 40 MG TAB PO SCH (20:30)
[2018-04-19] MEDS: Sodium Chloride 0.9% 1,000 ML IV SCH (04:14)
[2018-04-19] MEDS: Nitroglycerin 0.4 MG TAB (25 Tab Bottle) SL PRN (06:33)
[2018-04-19] MEDS ORDERED: Lidocaine 1% (PF) 30 ML VIAL ONE (06:33)
[2018-04-19] MEDS ORDERED: Heparin 10,000 UNITS/1 ML VIAL ONE (06:33)
[2018-04-19] MEDS ORDERED: Iopamidol 370 76% 100 ML VIAL ONE (06:52)
[2018-04-19] MEDS ORDERED: Midazolam HCl 2 mg/2 ml Vial ONE (07:20)
[2018-04-19] MEDS ORDERED: Fentanyl 100 MCG/2 ML VIAL ONE (07:20)
[2018-04-19] MEDS ORDERED: Protamine Sulfate 50 MG/5 ML VIAL ONE (07:43)
[2018-04-19] MEDS ORDERED: Acetaminophen/Codeine 30-300mg Tablet PO PRN ×2 (07:55)
[2018-04-19] MEDS ORDERED: Nitroglycerin 0.4 MG TAB (25 Tab Bottle) SL PRN (07:55)
[2018-04-19] MEDS ORDERED: traMADol HCl 50 MG TAB PO PRN (07:55)
[2018-04-19] MEDS ORDERED: Sodium Chloride 0.9% 1,000 ML IV SCH (07:56)
[2018-04-19] MEDS ORDERED: Sodium Chloride 0.9% 200 ML IV SCH (08:00)
[2018-04-19] MEDS: Pantoprazole 40 MG VIAL IVP SCH (09:08)
--- NOTE | 2018-04-19 11:34 | OP ---
DATE OF PROCEDURE: 04/18/2018 SURGEON: Ariel Ruby M.D. OPERATIVE PROCEDURE: Colonoscopy. PREOPERATIVE DIAGNOSIS: A 43-year-old male with hematochezia. The bleeding is painless. He had a colonoscopy last Tuesday and the exam was suboptimal because of retained stool. The patient undergoing a colonoscopy. POSTOPERATIVE DIAGNOSES: Normal colon. PROCEDURE IN DETAIL: The patient was placed on his left lateral position and was given sedation by A nesthesia Department. The rectal exam was done before the scope was advanced into the rectum. Caref ul exam of the perianal area showed no fissure or any external hemorrhoids. No lesion felt on rectal exam. A Pentax video colonoscope was introduced into the rectum and advanced all the way into the c ecum. The prep is good. The mucosa appears normal throughout the colon. The appendiceal orifice, i leocecal valve, cecum, no pathology seen. The ascending colon, hepatic flexure, no lesions seen. Th e transverse colon, splenic flexure, descending colon, and sigmoid colon, no pathology seen. Retrofl exion of scope in the rectum showed no lesion. Slow careful examination of the anal canal and rectum showed no pathology. DISCHARGE PLANNING: A 43-year-old male with hematochezia, negative colonoscopy. It is pos sible that maybe he was constipated and was straining at stool, and he had some mucosal bleeding.
[2018-04-19 11:36] VITALS: BP 140/72; TEMP 96.8
--- NOTE | 2018-04-19 21:54 | DIS ---
DATE OF ADMISSION: 04/16/2018 DATE OF DISCHARGE: 04/19/2018 DISCHARGE DIAGNOSES: 1. Chest pain. 2. Peptic ulcer disease with small gastric ulcer. 3. Alcohol abuse. 4. Anxiety disorder. 5. Speech impediment. PROCEDURES: Cardiac catheterization normal, colonoscopy normal, esophagogastroduodenoscopy with maria de jesus marbella ulcer. BRIEF HISTORY: This is a 43-year-old white male who presented to the emergency room with persistent chest pain. He was doing well until approximately 1 week ago, he developed substernal chest pain whi le watching TV. He was admitted on 04/13/2018 and discharged on 04/14/2018. At that time, a cardiac catheterization was recommended, but the patient refused the procedure. He also seen approximately [address] Beal and he declined a cardiac workup at that time also. Nurses in the [facility] is familiar with the patient. 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 Unable to quantify the amount. HOSPITAL COURSE: The patient was admitted. An EGD did reveal the gastric ulcer and a colonoscopy wa s done which was found to be unremarkable. Dr. Beal was awaiting the results for cardiac cathete rization. He felt that if there was a colon lesion that cardiac catheterization would not be indicat ed. However, the colonoscopy came back normal. Cardiac catheterization was performed this morning a nd was found to be unremarkable. The patient does have a speech impediment and does appear to be deepika ewhat withdrawn and does not appear to be self-assuring. I did offer to him some antianxiety medicat ion which he agreed to take. I will call out Zoloft 50 daily, as well as omeprazole 40 daily, which he did not fill from his last hospitalization for gastric ulcers. The patient will follow up in the office in one week. May have to pursue and anxiety type workup more. LABORATORY DATA: White count 7.6, H&H 12 and 38. Electrolytes normal. Blood sugar 108, 82, 113.
== END 2018-04-19 16:30 | disposition home or self-care (01) ==
LOC: ERS 11:25 → 2SW 15:21
PROVIDERS: ADMIT Family Medicine; ATTEND Internal Medicine Gastroenterology
PROC: 0DJD8ZZ Inspection of Lower Intestinal Tract, Via Natural or Artificial Opening Endoscopic (ICD-10-PCS; principal; 2018-04-18)
DX: K92.1 Melena (principal); R07.89 Other chest pain; K27.9 Peptic ulcer, site unspecified, unspecified as acute or chronic, without hemorrhage or perforation; E78.5 Hyperlipidemia, unspecified; R47.9 Unspecified speech disturbances; F41.9 Anxiety disorder, unspecified; Z79.899 Other long term (current) drug therapy
CPT/HCPCS: 36415; 36416; 71045; 80053; 82274; 82553; 83036; 84484; 85025; 85347; 85610; 85730; 93005; 93010; 93458; 94760; 96361; 96374; 96375; 96376; 99152; A4216; C1769; C9113; G0378; J1644; J2001; J2250; J2270; J2704; J2720; J3010

== ENCOUNTER 2018-05-06 03:26 | Emergency (ER) | payer BC, SELFPAY ==
[2018-05-06 04:08] LABS: #Eosinphils 0.1 thou/uL (0.0-0.7); #Lymphocytes 1.6 thou/uL (1.20-3.40); #Monocytes 0.6 thou/uL (0.11-0.59); %Basophils 0.1 % (0.0-1.0); %Eosinophils 1.4 % (0.0-10.0); %Lymphocytes 16.9 % (21.0-51.0); %Monocytes 6.8 % (0.0-10.0); %Neutrophils 74.8 % (42.0-75.0); Hemoglobin 12.6 g/dL (14.0-18.0); Mean Corpuscular HGB CONC 33.8 g/dL (32.0-36.0); Mean Corpuscular Hemoglobin 29.4 pg (27.0-31.0); Mean Corpuscular Volume 86.9 fL (78.0-98.0); Mean Platelet Volume 8.7 fL (7.4-10.4); Platelet Count 176 thou/uL (130-400); Red Blood Cell (RBC) Count 4.28 mill/uL (4.70-6.10); White Blood Cell (WBC) Count 9.3 thou/uL (4.8-10.8)
[2018-05-06 04:30] LABS: ALT (SGPT) 23 U/L (8-55); AST (SGOT) 18 U/L (5-34); Albumin 4.3 g/dL (3.5-5.0); Alkaline Phosphatase 116 U/L (40-150); Anion Gap 13 mmol/L (10-20); BUN (Urea Nitrogen) 13 mg/dL (8.9-20.6); Bilirubin, Total 0.3 mg/dL (0.2-1.2); Calc. Creatinine Clearance 0 mL/min (70-130); Calcium 8.7 mg/dL (7.8-10.44); Carbon Dioxide 25 mmol/L (22-29); Chloride 103 mmol/L (98-107); Estimated GFR-MDRD 72; Globulin 3.1 g/dL (2.4-3.5); Glucose 110 mg/dL (70-105); Lipase 38 U/L (8-78); Potassium 3.9 mmol/L (3.5-5.1); Protein, Total 7.4 g/dL (6.0-8.3); Sodium 137 mmol/L (136-145)
[2018-05-06 04:33] LABS: CKMB 0.8 ng/mL (0-6.6); Troponin I Less than 0.010 ng/mL (< 0.028)
[2018-05-06] MEDS ORDERED: Mag-Al 1200 mg/1200 mg/30 ML UDCUP ONE (04:54)
[2018-05-06] MEDS ORDERED: Lidocaine Viscous Sol 2% 15 ml UD Cup ONE (04:54)
[2018-05-06] MEDS ORDERED: Ketorolac Tromethamine 30 MG/ML VIAL ONE (04:54)
--- NOTE | 2018-05-06 08:26 | RAD ---
PORTABLE CHEST: HISTORY: Chest pain. FINDINGS: Lungs are clear. Heart and mediastinum unremarkable. IMPRESSION: No acute finding. POS: [facility]
--- NOTE | 2018-05-06 09:54 | CT ---
PRELIMINARY REPORT/[facility]/EMERGENTY AFTER-HOURS PROCEDURE CT Abdomen and Pelvis With Intravenous Contrast CLINICAL HISTORY: 43 years old, male; Pain; Abdominal pain; Localized; Right upper quadrant (ruq); Patient HX: Previous on pacs; Er 6; M43; Pt says he has had some abd pain x4 days in rlq and rectal bleeding. Pt says he has bleeding with bm but has also passed not brown, bloody stool by rectum. Pt denies rectal pain. Pt says he was seen for abd pain in the past and was told he may have an ulcer - pt is taking p rotonix for this. Pt says he has felt warm for the past 3 nights but denies fever. Pt denies HX of HT N, dm. TECHNIQUE: Axial computed tomography images of the abdomen and pelvis with intravenous contrast. Coronal reformatted images were created and reviewed. COMPARISON: No relevant prior studies available. FINDINGS: Lung bases: No acute findings. ABDOMEN: Liver: Mild liver hypoattenuation may represent steatosis. Gallbladder and bile ducts: Unremarkable. Pancreas: Normal. Spleen: Normal. Adrenals: Normal. Kidneys and ureters: Normal. Stomach and bowel: Unremarkable. No obstruction. PELVIS: Appendix: No findings to suggest acute appendicitis. Bladder: Unremarkable. Reproductive: Unremarkable. ABDOMEN and PELVIS: Intraperitoneal space: Minimal haziness in the central mesentery. No significant fluid collection. No free air. Bones/joints: Unremarkable. No acute fracture. Soft tissues: Unremarkable. Vasculature: Unremarkable. Lymph nodes: Unremarkable. No enlarged lymph nodes. IMPRESSION: 1. No definite acute findings. 2. Minimal nonspecific mesenteric haziness, could potentially be seen with mild panniculitis. Thank you for allowing us to participate in the care of your patient. Dictated and Authenticated by: Ovidio Hyde MD 05/06/2018 5:44 AM Central Time ([place] & [place]) FINAL REPORT CT ABDOMEN AND PELVIS: Multiple axial tomograms were obtained through the abdomen and pelvis with IV enhancement. FINDINGS: Liver, spleen, pancreas, and kidneys unremarkable. Bowel loops unremarkable. Appendix appears fariba l. Urinary bladder is unremarkable. Mild prominence of the mid and distal left ureter; however, there is no evidence of urinary calculus. No acute process identified. I am in agreement with the preliminary report. POS: [facility]
[2018-05-06] MEDS ORDERED: ISOVUE-370 76%-LOCM 1 ML ONE (13:41)
--- NOTE | 2018-05-10 12:44 | EKG ---
Test Reason : Blood Pressure : / mmHG Vent. Rate : 091 BPM Atrial Rate : 091 BPM P-R Int : 178 ms QRS Dur : 088 ms QT Int : 370 ms P-R-T Axes : 076 060 064 degrees QTc Int : 455 ms Normal sinus rhythm Minimal voltage criteria for LVH, may be normal variant Borderline ECG Confirmed by PERCY ALVAREZ D.O. ([id number]), smocker ROSETTE MCGARRY ([id number]) on 05/10/2018 12:44:11 PM Referred By: Confirmed By:PERCY ALVAREZ D.O.
== END 2018-05-06 06:08 | disposition home or self-care (01) ==
LOC: ERS 03:26
DX: R07.89 Other chest pain (principal); R10.31 Right lower quadrant pain
CPT/HCPCS: 71045; 74177; 80053; 82274; 82553; 83690; 84484; 85025; 93005; 96374; J1885

== ENCOUNTER 2018-05-09 13:36 | Emergency (ER) | payer SELFPAY ==
[2018-05-09 16:23] LABS: Bilirubin Negative (Negative); Blood, Urine Negative (Negative); Clarity CLEAR (Clear); Glucose, Urine (Dipstick) Negative (Negative); Leukocyte Negative (Negative); Nitrite Negative (Negative); Protein, Urine (Dipstick) Negative (Neg-Trace); Specific Gravity, Urine 1.003 (1.002-1.036); Urobilinogen 0.2 mg/dL (0.2-1.0); pH, Urine 6.5 (5.0-9.0)
[2018-05-09] MEDS ORDERED: Lidocaine Viscous Sol 2% 15 ml UD Cup ONE (16:24)
[2018-05-09] MEDS ORDERED: Mag-Al 1200 mg/1200 mg/30 ML UDCUP ONE (16:24)
[2018-05-09 16:31] LABS: #Eosinphils 0.1 thou/uL (0.0-0.7); #Monocytes 0.6 thou/uL (0.11-0.59); #Neutrophils 5.9 thou/uL (1.40-6.50); %Basophils 0.5 % (0.0-1.0); %Eosinophils 1.5 % (0.0-10.0); %Lymphocytes 13.4 % (21.0-51.0); %Monocytes 7.6 % (0.0-10.0); Mean Corpuscular Hemoglobin 29.4 pg (27.0-31.0); Mean Corpuscular Volume 86.3 fL (78.0-98.0); Mean Platelet Volume 8.4 fL (7.4-10.4); Platelet Count 157 thou/uL (130-400); RBC Distribution Width 13.1 % (11.5-14.5); Red Blood Cell (RBC) Count 4.41 mill/uL (4.70-6.10); White Blood Cell (WBC) Count 7.6 thou/uL (4.8-10.8)
[2018-05-09 17:07] LABS: ALT (SGPT) 20 U/L (8-55); AST (SGOT) 17 U/L (5-34); Albumin 4.2 g/dL (3.5-5.0); Alkaline Phosphatase 116 U/L (40-150); Anion Gap 15 mmol/L (10-20); BUN (Urea Nitrogen) 9 mg/dL (8.9-20.6); Bilirubin, Total 0.4 mg/dL (0.2-1.2); Calc. Creatinine Clearance 0 mL/min (70-130); Calcium 8.9 mg/dL (7.8-10.44); Carbon Dioxide 25 mmol/L (22-29); Chloride 103 mmol/L (98-107); Estimated GFR-MDRD 72; Globulin 3.5 g/dL (2.4-3.5); Glucose 105 mg/dL (70-105); Lipase 35 U/L (8-78); Potassium 3.7 mmol/L (3.5-5.1); Protein, Total 7.7 g/dL (6.0-8.3); Sodium 139 mmol/L (136-145)
--- NOTE | 2018-05-10 15:15 | EKG ---
Test Reason : EPIGASTRIC PAIN Blood Pressure : / mmHG Vent. Rate : 106 BPM Atrial Rate : 106 BPM P-R Int : 178 ms QRS Dur : 078 ms QT Int : 316 ms P-R-T Axes : 081 056 079 degrees QTc Int : 419 ms Sinus tachycardia Left ventricular hypertrophy with repolarization abnormality Abnormal ECG Confirmed by SAHRA CELAYA DO ([id number]), commissioning editor ROSETTE MCGARRY ([id number]) on 05/10/2018 3:14:38 PM Referred By: Confirmed By:SAHRA CELAYA DO
== END 2018-05-09 18:02 | disposition home or self-care (01) ==
LOC: ERS 13:36
DX: K25.9 Gastric ulcer, unspecified as acute or chronic, without hemorrhage or perforation (principal); Z79.899 Other long term (current) drug therapy
CPT/HCPCS: 36415; 80053; 81003; 83690; 85025; 93005

== ENCOUNTER 2018-06-11 11:18 | Emergency (ER) | payer BC ==
[2018-06-11 12:03] LABS: #Eosinphils 0.2 thou/uL (0.0-0.7); #Lymphocytes 1.3 thou/uL (1.20-3.40); #Monocytes 0.5 thou/uL (0.11-0.59); #Neutrophils 6.5 thou/uL (1.40-6.50); %Basophils 0.5 % (0.0-1.0); %Eosinophils 2.4 % (0.0-10.0); %Lymphocytes 14.9 % (21.0-51.0); %Monocytes 6.1 % (0.0-10.0); Hemoglobin 12.8 g/dL (14.0-18.0); Mean Corpuscular HGB CONC 32.7 g/dL (32.0-36.0); Mean Corpuscular Hemoglobin 28.7 pg (27.0-31.0); Mean Corpuscular Volume 87.7 fL (78.0-98.0); Mean Platelet Volume 9.1 fL (7.4-10.4); Platelet Count 143 thou/uL (130-400); Red Blood Cell (RBC) Count 4.46 mill/uL (4.70-6.10); White Blood Cell (WBC) Count 8.5 thou/uL (4.8-10.8)
[2018-06-11 12:27] LABS: ALT (SGPT) 22 U/L (8-55); AST (SGOT) 22 U/L (5-34); Alkaline Phosphatase 106 U/L (40-150); Anion Gap 13 mmol/L (10-20); BUN (Urea Nitrogen) 9 mg/dL (8.9-20.6); Bilirubin, Total 0.5 mg/dL (0.2-1.2); CK (CPK) 61 U/L (30-200); Calc. Creatinine Clearance 0 mL/min (70-130); Calcium 8.5 mg/dL (7.8-10.44); Carbon Dioxide 24 mmol/L (22-29); Chloride 104 mmol/L (98-107); Estimated GFR-MDRD 75; Globulin 3.6 g/dL (2.4-3.5); Glucose 120 mg/dL (70-105); Protein, Total 7.6 g/dL (6.0-8.3); Sodium 137 mmol/L (136-145)
[2018-06-11 12:32] LABS: CKMB 1.1 ng/mL (0-6.6); Troponin I Less than 0.010 ng/mL (< 0.028)
--- NOTE | 2018-06-11 13:23 | RAD ---
PORTABLE CHEST 1 VIEW: Date: 06/11/18 Time: 1147 hours HISTORY: Chest pain. FINDINGS: Comparison made with exam of 05/06/18. The heart size is normal. The lungs are well expanded without lobar consolidation, pneumothoraces, or pleural effusions. IMPRESSION: No radiographic evidence of acute cardiopulmonary process. POS: [facility]
== END 2018-06-11 13:05 | disposition home or self-care (01) ==
LOC: ERS 11:18
DX: R07.89 Other chest pain (principal); Z79.899 Other long term (current) drug therapy
CPT/HCPCS: 36415; 71045; 80053; 82553; 84484; 85025; 93005

== ENCOUNTER 2018-07-04 15:40 | Emergency (ER) | payer BC, SELFPAY ==
--- NOTE | 2018-07-04 16:33 | RAD ---
FRONTAL VIEW CHEST: Indication: Cough. Comparison: 06-11-18 FINDINGS: There is no evidence of lobar consolidation, effusion, or discrete pneumothorax. Cardiac silhouette i s within normal limits of size. IMPRESSION: No focal consolidation. POS: [facility]
[2018-07-04 17:36] LABS: #Eosinphils 0.1 thou/uL (0.0-0.7); #Lymphocytes 1.2 thou/uL (1.20-3.40); #Monocytes 0.5 thou/uL (0.11-0.59); #Neutrophils 6.3 thou/uL (1.40-6.50); %Basophils 0.4 % (0.0-1.0); %Eosinophils 1.6 % (0.0-10.0); %Lymphocytes 14.7 % (21.0-51.0); %Monocytes 5.5 % (0.0-10.0); %Neutrophils 77.7 % (42.0-75.0); Hemoglobin 13.1 g/dL (14.0-18.0); Mean Corpuscular HGB CONC 32.5 g/dL (32.0-36.0); Mean Corpuscular Hemoglobin 28.6 pg (27.0-31.0); Mean Corpuscular Volume 88.1 fL (78.0-98.0); Mean Platelet Volume 9.4 fL (7.4-10.4); Platelet Count 157 thou/uL (130-400); RBC Distribution Width 13.4 % (11.5-14.5); Red Blood Cell (RBC) Count 4.57 mill/uL (4.70-6.10); White Blood Cell (WBC) Count 8.1 thou/uL (4.8-10.8)
[2018-07-04 17:54] LABS: ALT (SGPT) 20 U/L (8-55); AST (SGOT) 18 U/L (5-34); Albumin 4.3 g/dL (3.5-5.0); Alkaline Phosphatase 101 U/L (40-150); Anion Gap 12 mmol/L (10-20); BUN (Urea Nitrogen) 10 mg/dL (8.9-20.6); Bilirubin, Total 0.4 mg/dL (0.2-1.2); Calc. Creatinine Clearance 0 mL/min (70-130); Calcium 9.1 mg/dL (7.8-10.44); Carbon Dioxide 29 mmol/L (22-29); Chloride 102 mmol/L (98-107); Estimated GFR-MDRD 70; Globulin 3.7 g/dL (2.4-3.5); Glucose 124 mg/dL (70-105); Lipase 21 U/L (8-78); Potassium 3.7 mmol/L (3.5-5.1); Sodium 139 mmol/L (136-145)
[2018-07-04 18:00] LABS: CKMB 1.6 ng/mL (0-6.6); Troponin I Less than 0.010 ng/mL (< 0.028)
[2018-07-04 18:42] LABS: Bilirubin Negative (Negative); Blood, Urine Negative (Negative); Clarity CLEAR (Clear); Glucose, Urine (Dipstick) Negative (Negative); Leukocyte Negative (Negative); Nitrite Negative (Negative); Protein, Urine (Dipstick) Negative (Neg-Trace); Specific Gravity, Urine 1.019 (1.002-1.036)
--- NOTE | 2018-07-08 11:59 | EKG ---
Test Reason : Blood Pressure : / mmHG Vent. Rate : 080 BPM Atrial Rate : 080 BPM P-R Int : 180 ms QRS Dur : 088 ms QT Int : 394 ms P-R-T Axes : 083 072 076 degrees QTc Int : 454 ms Normal sinus rhythm Moderate voltage criteria for LVH, may be normal variant Borderline ECG Confirmed by AYAKA DELGADO ([id number]), newspaper editor managing TEJINDER PATEL ([id number]) on 07/08/2018 11:59:18 AM Referred By: Confirmed By:AYAKA DELGADO
== END 2018-07-04 19:17 | disposition home or self-care (01) ==
LOC: ERS 15:40
DX: J06.9 Acute upper respiratory infection, unspecified (principal); Z79.891 Long term (current) use of opiate analgesic; Z79.899 Other long term (current) drug therapy
CPT/HCPCS: 36415; 71045; 80053; 81003; 82553; 83690; 84484; 85025; 93005

== ENCOUNTER 2018-07-11 03:07 | Emergency (ER) | payer SELFPAY ==
[2018-07-11 03:44] LABS: #Eosinphils 0.4 thou/uL (0.0-0.7); #Lymphocytes 1.5 thou/uL (1.20-3.40); #Monocytes 0.5 thou/uL (0.11-0.59); #Neutrophils 5.1 thou/uL (1.40-6.50); %Basophils 0.5 % (0.0-1.0); %Eosinophils 4.7 % (0.0-10.0); %Lymphocytes 19.7 % (21.0-51.0); %Monocytes 7.2 % (0.0-10.0); %Neutrophils 67.9 % (42.0-75.0); Hemoglobin 12.3 g/dL (14.0-18.0); Mean Corpuscular Volume 87.7 fL (78.0-98.0); Mean Platelet Volume 9.6 fL (7.4-10.4); Platelet Count 146 thou/uL (130-400); RBC Distribution Width 13.2 % (11.5-14.5); Red Blood Cell (RBC) Count 4.39 mill/uL (4.70-6.10); White Blood Cell (WBC) Count 7.5 thou/uL (4.8-10.8)
[2018-07-11] MEDS ORDERED: Acetaminophen 500 MG TAB ONE (03:47)
[2018-07-11 04:07] LABS: ALT (SGPT) 18 U/L (8-55); AST (SGOT) 20 U/L (5-34); Alkaline Phosphatase 96 U/L (40-150); Anion Gap 12 mmol/L (10-20); BUN (Urea Nitrogen) 9 mg/dL (8.9-20.6); Bilirubin, Total 0.2 mg/dL (0.2-1.2); Calc. Creatinine Clearance 0 mL/min (70-130); Calcium 8.6 mg/dL (7.8-10.44); Carbon Dioxide 25 mmol/L (22-29); Chloride 105 mmol/L (98-107); Estimated GFR-MDRD 77; Globulin 3.6 g/dL (2.4-3.5); Glucose 100 mg/dL (70-105); Lipase 32 U/L (8-78); Protein, Total 7.6 g/dL (6.0-8.3); Sodium 138 mmol/L (136-145)
[2018-07-11] MEDS ORDERED: Ketorolac Tromethamine 30 MG/ML VIAL ONE (05:06)
--- NOTE | 2018-07-11 08:16 | CT ---
PRELIMINARY REPORT/[facility]/EMERGENTY AFTER-HOURS PROCEDURE CT Abdomen and Pelvis With Intravenous Contrast EXAM DATE/TIME: 07/11/2018 4:14 AM CLINICAL HISTORY: 43 years old, male; Pain; Abdominal pain; Generalized; Patient HX: 43 yo m presents to ed with abdomi nal pain. PT reports intermittent abdominal pain localized to the rlq since yesterday, with associate d nausea, 3x episodes of vomiting, night sweats, and hematochezia. PT denies diarrhea, denies fever, denies chills, denies dysuria, denies stool changes. PT reports he still has his appendix. PT denies HX of diabetes or hypertension, PT denies any known medication allergies, denies any current medicati ons. TECHNIQUE: Axial computed tomography images of the abdomen and pelvis with intravenous contrast. Coronal reformatted images were created and reviewed. COMPARISON: No relevant prior studies available. FINDINGS: Lower thorax: There is subpleural atelectasis of the dependent portions of the lungs. ABDOMEN: Liver: There are no focal liver lesions identified. Gallbladder and bile ducts: The gallbladder is contracted but otherwise normal. There is no common bi le duct dilation. Pancreas: The pancreas appears normal. Spleen: The spleen is normal. Adrenals: The adrenal glands are normal. Kidneys and ureters: Normal. No hydronephrosis. Stomach and bowel: The stomach is normal. The duodenum is unremarkable. Appendix: A normal appendix is identified. PELVIS: Bladder: The bladder is normal. Reproductive: The prostate gland and seminal vesicles are normal. ABDOMEN and PELVIS: Intraperitoneal space: Normal. No free air. No significant fluid collection. Bones/joints: No acute fracture. No dislocation. Soft tissues: There is a fat-containing umbilical hernia. Vasculature: Normal. No abdominal aortic aneurysm. Lymph nodes: Normal. No enlarged lymph nodes. IMPRESSION: No acute abdominal pelvic pathology. Thank you for allowing us to participate in the care of your patient. Dictated and Authenticated by: Siddharth Lowe MD 07/11/2018 4:42 AM Central Time ([place] & [place]) FINAL REPORT EMERGENT AFTER HOURS CT OF ABDOMEN AND PELVIS PERFORMED WITH INTRAVENOUS CONTRAST ENHANCEMENT: HISTORY: Abdominal pain generalized with some localization to the right lower quadrant since yesterday. COMPARISON: 05/06/2018 exam. FINDINGS: The lung bases show some gravity-dependent atelectasis. The liver and spleen show no focal abnormalities. There is a suggestion of some fatty change of the liver. The pancreas region is unremarkable. The ground-glass is somewhat contracted. Right and left adrenal gland and right and left kidneys are normal in size. There is no significant periaortic or mesenteric lymphadenopathy. Some slight prominence to the ureters, but this is probabl y on the basis of some mild bladder distention. CT OF PELVIS PERFORMED WITH CONTRAST ENHANCEMENT: The appendix is normal. There is a small fat-containing paraumbilical hernia. The prostate and semi nal vesicle regions are slightly prominent. No significant adenopathy or mass. Review of osseous structures showed no significant findings. IMPRESSION: 1. No acute abnormalities of the abdomen or pelvis. 2. Normal appendix. 3. Small fat-containing paraumbilical hernia. 4. This report is in agreement with the temporary report issued by [facility]. POS: [facility]
[2018-07-11] MEDS ORDERED: ISOVUE-370 76%-LOCM 1 ML ONE (09:57)
== END 2018-07-11 05:09 | disposition home or self-care (01) ==
LOC: ERS 03:07
DX: K92.1 Melena (principal); K21.9 Gastro-esophageal reflux disease without esophagitis; K27.9 Peptic ulcer, site unspecified, unspecified as acute or chronic, without hemorrhage or perforation
CPT/HCPCS: 36415; 74177; 80053; 83690; 83735; 85025; 96361; 96372; 96374; J1885

== ENCOUNTER 2018-09-29 03:25 | Emergency (ER) | payer BC, SELFPAY ==
[2018-09-29 04:33] LABS: #Basophils 0.1 thou/uL (0.0-0.2); #Eosinphils 0.2 thou/uL (0.0-0.7); #Lymphocytes 1.7 thou/uL (1.20-3.40); #Monocytes 0.5 thou/uL (0.11-0.59); #Neutrophils 6.4 thou/uL (1.40-6.50); %Basophils 0.9 % (0.0-1.0); %Eosinophils 2.7 % (0.0-10.0); %Lymphocytes 18.6 % (21.0-51.0); %Monocytes 5.6 % (0.0-10.0); %Neutrophils 72.3 % (42.0-75.0); Hemoglobin 12.7 g/dL (14.0-18.0); Mean Corpuscular HGB CONC 32.5 g/dL (32.0-36.0); Mean Corpuscular Hemoglobin 28.2 pg (27.0-31.0); Mean Corpuscular Volume 86.7 fL (78.0-98.0); Mean Platelet Volume 8.9 fL (7.4-10.4); Platelet Count 151 thou/uL (130-400); RBC Distribution Width 13.6 % (11.5-14.5); Red Blood Cell (RBC) Count 4.49 mill/uL (4.70-6.10); White Blood Cell (WBC) Count 8.9 thou/uL (4.8-10.8)
[2018-09-29 04:54] LABS: ALT (SGPT) 42 U/L (8-55); AST (SGOT) 24 U/L (5-34); Albumin 4.2 g/dL (3.5-5.0); Alkaline Phosphatase 101 U/L (40-150); Anion Gap 16 mmol/L (10-20); BUN (Urea Nitrogen) 12 mg/dL (8.9-20.6); Bilirubin, Total 0.3 mg/dL (0.2-1.2); CK (CPK) 45 U/L (30-200); Calc. Creatinine Clearance 0 mL/min (70-130); Calcium 8.8 mg/dL (7.8-10.44); Carbon Dioxide 23 mmol/L (22-29); Chloride 104 mmol/L (98-107); Estimated GFR-MDRD 67; Globulin 3.1 g/dL (2.4-3.5); Glucose 159 mg/dL (70-105); Potassium 3.8 mmol/L (3.5-5.1); Protein, Total 7.3 g/dL (6.0-8.3); Sodium 139 mmol/L (136-145)
--- NOTE | 2018-09-29 08:35 | RAD ---
1 VIEW CHEST: Date: 09/29/18 COMPARISON: 06/11/18, 07/04/18. HISTORY: Pain. FINDINGS: Normal cardiac silhouette. Pulmonary vessels and hilum are normal. Costophrenic angles are clear. No masses or consolidation. No pneumothorax or osseous abnormalities. IMPRESSION: No acute cardiopulmonary process. POS: [facility]
--- NOTE | 2018-09-30 13:35 | EKG ---
Test Reason : Blood Pressure : / mmHG Vent. Rate : 086 BPM Atrial Rate : 086 BPM P-R Int : 158 ms QRS Dur : 086 ms QT Int : 380 ms P-R-T Axes : 078 071 069 degrees QTc Int : 454 ms Normal sinus rhythm Minimal voltage criteria for LVH, may be normal variant Nonspecific T wave abnormality Abnormal ECG Confirmed by GARTH DIXON, ELICIA Torres ([id number]), editorial project manager TEJINDER PATEL ([id number]) on 09/30/2018 1:35:03 PM Referred By: Confirmed By:ELICIA LIANG MD
== END 2018-09-29 05:51 | disposition home or self-care (01) ==
LOC: ERS 03:25
DX: R07.2 Precordial pain (principal); K21.9 Gastro-esophageal reflux disease without esophagitis
CPT/HCPCS: 36415; 71045; 80053; 82550; 84484; 85025; 93005

== ENCOUNTER 2019-02-10 04:00 | Emergency (ER) | payer BC, SELFPAY ==
[2019-02-10] MEDS ORDERED: Ondansetron ODT 4 MG TAB ONE (04:16)
[2019-02-10] MEDS ORDERED: Lidocaine Viscous Sol 2% 15 ml UD Cup ONE (04:17)
[2019-02-10] MEDS ORDERED: Mag-Al 1200 mg/1200 mg/30 ML UDCUP ONE (04:17)
[2019-02-10 04:35] LABS: #Eosinphils 0.3 thou/uL (0.0-0.7); #Lymphocytes 1.4 thou/uL (1.20-3.40); #Monocytes 0.5 thou/uL (0.11-0.59); #Neutrophils 5.5 thou/uL (1.40-6.50); %Basophils 0.6 % (0.0-1.0); %Eosinophils 3.6 % (0.0-10.0); %Lymphocytes 17.8 % (21.0-51.0); %Monocytes 6.5 % (0.0-10.0); %Neutrophils 71.6 % (42.0-75.0); Hemoglobin 12.6 g/dL (14.0-18.0); Mean Corpuscular HGB CONC 32.3 g/dL (32.0-36.0); Mean Corpuscular Hemoglobin 27.9 pg (27.0-31.0); Mean Corpuscular Volume 86.6 fL (78.0-98.0); Mean Platelet Volume 8.9 fL (7.4-10.4); Platelet Count 149 thou/uL (130-400); RBC Distribution Width 13.8 % (11.5-14.5); Red Blood Cell (RBC) Count 4.52 mill/uL (4.70-6.10); White Blood Cell (WBC) Count 7.7 thou/uL (4.8-10.8)
[2019-02-10 04:58] LABS: ALT (SGPT) 22 U/L (8-55); AST (SGOT) 19 U/L (5-34); Albumin 4.4 g/dL (3.5-5.0); Alkaline Phosphatase 99 U/L (40-150); Anion Gap 13 mmol/L (10-20); BUN (Urea Nitrogen) 11 mg/dL (8.9-20.6); Bilirubin, Total 0.3 mg/dL (0.2-1.2); CK (CPK) 98 U/L (30-200); Calc. Creatinine Clearance 0 mL/min (70-130); Calcium 9.3 mg/dL (7.8-10.44); Carbon Dioxide 27 mmol/L (22-29); Chloride 102 mmol/L (98-107); Estimated GFR-MDRD 62; Globulin 3.3 g/dL (2.4-3.5); Glucose 112 mg/dL (70-105); Lipase 36 U/L (8-78); Potassium 4.2 mmol/L (3.5-5.1); Protein, Total 7.7 g/dL (6.0-8.3); Sodium 138 mmol/L (136-145)
--- NOTE | 2019-02-10 09:22 | RAD ---
CHEST 1 VIEW: HISTORY: Pain. COMPARISON: 09/29/2018. FINDINGS: Normal cardiac silhouette. Pulmonary vessels and hilum are normal. Costophrenic angles are clear. No consolidation or mass. No pneumothorax or osseous abnormalities. IMPRESSION: No acute cardiopulmonary process. POS: [facility]
== END 2019-02-10 05:32 | disposition home or self-care (01) ==
LOC: ERS 04:00
DX: R10.13 Epigastric pain (principal); K21.9 Gastro-esophageal reflux disease without esophagitis; K27.9 Peptic ulcer, site unspecified, unspecified as acute or chronic, without hemorrhage or perforation
CPT/HCPCS: 36415; 71045; 80053; 82550; 83690; 84484; 85025; 93005; Q0162

== ENCOUNTER 2019-06-16 04:46 | Emergency (ER) | payer SELFPAY ==
[2019-06-16] MEDS ORDERED: Loratadine 10 MG TAB PO SCH (05:45)
[2019-06-16] MEDS ORDERED: Pseudoephedrine HCl 30 MG TAB PO SCH (05:45)
[2019-06-16 05:58] LABS: Bilirubin Negative (Negative); Blood, Urine Negative (Negative); Clarity Clear (Clear); Glucose, Urine (Dipstick) Normal (Negative); Leukocyte Negative Leu/uL (Negative); Nitrite Negative (Negative); Protein, Urine (Dipstick) Negative (Neg-Trace); Urobilinogen Normal mg/dL (Less than 2)
[2019-06-16 06:34] LABS: #Eosinphils 0.4 thou/uL (0.0-0.7); #Lymphocytes 1.1 thou/uL (1.20-3.40); #Monocytes 0.8 thou/uL (0.11-0.59); #Neutrophils 7.5 thou/uL (1.40-6.50); %Basophils 0.4 % (0.0-1.0); %Eosinophils 3.9 % (0.0-10.0); %Lymphocytes 11.4 % (21.0-51.0); %Monocytes 7.9 % (0.0-10.0); %Neutrophils 76.5 % (42.0-75.0); Mean Corpuscular Hemoglobin 28.7 pg (27.0-31.0); Mean Corpuscular Volume 86.9 fL (78.0-98.0); Mean Platelet Volume 9.2 fL (7.4-10.4); Platelet Count 148 thou/uL (130-400); RBC Distribution Width 13.3 % (11.5-14.5); Red Blood Cell (RBC) Count 4.54 mill/uL (4.70-6.10); White Blood Cell (WBC) Count 9.8 thou/uL (4.8-10.8)
[2019-06-16 07:00] LABS: ALT (SGPT) 29 U/L (8-55); AST (SGOT) 22 U/L (5-34); Albumin 4.1 g/dL (3.5-5.0); Alkaline Phosphatase 97 U/L (40-110); Anion Gap 13 mmol/L (10-20); BUN (Urea Nitrogen) 11 mg/dL (8.9-20.6); Bilirubin, Total 0.3 mg/dL (0.2-1.2); Calc. Creatinine Clearance 0 mL/min (70-130); Calcium 8.8 mg/dL (7.8-10.44); Carbon Dioxide 24 mmol/L (22-29); Chloride 102 mmol/L (98-107); Estimated GFR-MDRD 73; Globulin 3.2 g/dL (2.4-3.5); Glucose 101 mg/dL (70-105); Lipase 32 U/L (8-78); Potassium 4.1 mmol/L (3.5-5.1); Protein, Total 7.3 g/dL (6.0-8.3); Sodium 135 mmol/L (136-145)
--- NOTE | 2019-06-16 10:55 | RAD ---
FRONTAL VIEW CHEST: COMPARISON: 02/10/2019. INDICATION: Chest pain. FINDINGS: No consolidation, effusion, or pneumothorax. Relative lucency at the upper lung zones bilaterally in dicates COPD. Correlate clinically. Chest is stable-appearing from 02/10/2019. IMPRESSION: Stable chest. POS: [facility]
== END 2019-06-16 06:55 | disposition home or self-care (01) ==
LOC: ERS 04:46
DX: R10.9 Unspecified abdominal pain (principal); R09.81 Nasal congestion; R51 Headache
CPT/HCPCS: 36415; 71045; 80053; 81003; 83690; 85025; 87804

== ENCOUNTER 2019-06-21 05:03 | Emergency (ER) | payer SELFPAY ==
--- NOTE | 2019-06-21 07:45 | RAD ---
CHEST 2 VIEWS: HISTORY: Cough for 1 week. COMPARISON: 06/16/2019. FINDINGS: Heart size is normal. The lungs are clear. No significant active intrathoracic disease. Mild stable linear and chronic lung changes. POS: [facility]
== END 2019-06-21 06:03 | disposition home or self-care (01) ==
LOC: SCSER 05:03
DX: R07.89 Other chest pain (principal); R05 Cough; K21.9 Gastro-esophageal reflux disease without esophagitis
CPT/HCPCS: 71046

== ENCOUNTER 2019-07-07 03:33 | Inpatient (IN) | payer SELFPAY ==
[2019-07-07 04:07] LABS: #Eosinphils 0.2 thou/uL (0.0-0.7); #Lymphocytes 1.5 thou/uL (1.20-3.40); #Monocytes 0.7 thou/uL (0.11-0.59); #Neutrophils 6.7 thou/uL (1.40-6.50); %Basophils 0.5 % (0.0-1.0); %Eosinophils 2.7 % (0.0-10.0); %Monocytes 7.8 % (0.0-10.0); %Neutrophils 73.1 % (42.0-75.0); Hemoglobin 13.9 g/dL (14.0-18.0); Mean Corpuscular HGB CONC 31.5 g/dL (32.0-36.0); Mean Corpuscular Hemoglobin 27.5 pg (27.0-31.0); Mean Corpuscular Volume 87.3 fL (78.0-98.0); Mean Platelet Volume 8.9 fL (7.4-10.4); Platelet Count 174 thou/uL (130-400); RBC Distribution Width 13.4 % (11.5-14.5); Red Blood Cell (RBC) Count 5.05 mill/uL (4.70-6.10); White Blood Cell (WBC) Count 9.2 thou/uL (4.8-10.8)
[2019-07-07] MEDS ORDERED: Ondansetron PF 4 MG/2 ML Vial ONE (04:11)
[2019-07-07] MEDS ORDERED: Morphine 4 MG/ML VIAL ONE (04:11)
[2019-07-07 04:26] LABS: ALT (SGPT) 19 U/L (8-55); AST (SGOT) 18 U/L (5-34); Albumin 4.5 g/dL (3.5-5.0); Alkaline Phosphatase 118 U/L (40-110); Anion Gap 15 mmol/L (10-20); BUN (Urea Nitrogen) 11 mg/dL (8.9-20.6); Bilirubin, Total 0.3 mg/dL (0.2-1.2); Calc. Creatinine Clearance 0 mL/min (70-130); Calcium 9.2 mg/dL (7.8-10.44); Carbon Dioxide 27 mmol/L (22-29); Chloride 100 mmol/L (98-107); Estimated GFR-MDRD 64; Globulin 3.9 g/dL (2.4-3.5); Glucose 117 mg/dL (70-105); Lipase 29 U/L (8-78); Potassium 4.2 mmol/L (3.5-5.1); Protein, Total 8.4 g/dL (6.0-8.3); Sodium 138 mmol/L (136-145)
[2019-07-07] MEDS ORDERED: Ondansetron PF 4 MG/2 ML Vial IVP PRN ×2 (05:00→22:17)
[2019-07-07] MEDS ORDERED: Ondansetron ODT 4 MG TAB SL PRN (05:00)
[2019-07-07 05:09] LABS: Bilirubin Negative (Negative); Blood, Urine Negative (Negative); Clarity Clear (Clear); Glucose, Urine (Dipstick) Normal (Negative); Leukocyte Negative Leu/uL (Negative); Nitrite Negative (Negative); Protein, Urine (Dipstick) Negative (Neg-Trace); Urobilinogen Normal mg/dL (Less than 2)
[2019-07-07] MEDS ORDERED: Fentanyl 100 MCG/2 ML VIAL ONE (05:35)
[2019-07-07] MEDS ORDERED: Lorazepam 1 MG TAB ONE (06:01)
[2019-07-07] MEDS ORDERED: Pantoprazole 80 MG in Sodium Chloride 0.9% 100 ML IVP SCH (06:30)
--- NOTE | 2019-07-07 07:00 | HP ---
PRIMARY CARE PROVIDER: None. CHIEF COMPLAINT: Bloody stools. HISTORY OF PRESENT ILLNESS: Mr. Holbrook is a pleasant 44-year-old gentleman who was seen at [facility] on July 07, 2019. He was hospitalized at this facility from April 16 to April 19 in 2018 for chest pain and peptic ulcer disease with small gastric ulcer. He reports that he was doing well until approximately a week ago. At that time, he noticed that there was blood in his stools. He also reports occasional black stools as well as bright red blood in stool. He denies any nausea or vomiting. He also reports abdominal pain that has been going on for a few days, but got worse over the last couple of days. The pain is in the right lower quadrant, radiating to the right upper quadrant, sharp, 8/10 at its worst, no known aggravating or relieving factors, not accompanied by vomiting, but accompanied by nausea. He denies any constipation or diarrhea. REVIEW OF SYSTEMS: All systems were reviewed and found to be negative except for the pertinent positives mentioned above. PAST MEDICAL HISTORY: Gastroesophageal reflux disease, peptic ulcer disease, and speech impediment. PAST SURGICAL HISTORY: None. SOCIAL HISTORY: The patient denies tobacco use, alcohol use, or recreational drug use. FAMILY HISTORY: Coronary artery disease in his father. ALLERGIES: NO KNOWN DRUG ALLERGIES. CURRENT MEDICATIONS: None. PHYSICAL EXAMINATION: GENERAL: On examination, Mr. Holbrook is awake and alert, not in acute distress. VITAL SIGNS: Blood pressure is 136/94, pulse 115, respiratory rate 16, and oxygen saturation 99% on room air. VITAL SIGNS: He is afebrile. EYES: No scleral icterus, no conjunctival pallor. ENT: Moist mucosal membranes. No oropharyngeal erythema or exudates. NECK: Supple, nontender, trachea is midline. RESPIRATORY: Accessory muscles of breathing are not active. Chest wall movements are symmetric bilaterally. LUNGS: Clear to auscultation bilaterally. CARDIOVASCULAR: S1 and S2 are heard, regular. Peripheral pulses palpable. ABDOMEN: Distended, soft, mild right lower quadrant tenderness. No guarding or rigidity. Bowel sounds are heard. LYMPHATIC: No cervical lymphadenopathy. MUSCULOSKELETAL: Power is 5/5 in all 4 extremities. NEUROLOGIC: Cranial nerves, the patient has speech impediment. Otherwise, no neurologic deficits noted. PSYCHIATRIC: Normal mood, normal affect, the patient is oriented to person, place, and time. LABORATORY DATA: Mr. Holbrook's labs and investigations were reviewed. Electrocardiogram shows sinus tachycardia, no ST changes to suggest an acute coronary syndrome. He also had CT scan of the abdomen and pelvis. Emergency room physician reports that it was consistent with constipation, but no other acute findings. The official report is pending. He has normal white count, normocytic anemia with hemoglobin 13.9, hemoglobin was 13.0 on June 16, 2019, normal platelet count, normal electrolytes and normal creatinine. Alkaline phosphatase was elevated at 118. Lipase is normal. Urinalysis is normal. ASSESSMENT AND PLAN: Mr. Holbrook is a pleasant 44-year-old gentleman who was seen at [facility] on July 07, 2019. His problem list includes: 1. Gastrointestinal bleed: Mr. Holbrook is presenting with gastrointestinal bleed. He reports both black stools as well as bright red blood in stools. His hemoglobin has not dropped. However, he does have significant tachycardia. The patient will be admitted to the hospital for further management. Gastroenterology service will be consulted. The patient will be started on Protonix drip. Hemoglobin will be rechecked. 2. Sinus tachycardia: Etiology is unclear. We will check TSH level. We will provide intravenous fluids. If sinus tachycardia does not improve, he will need further investigations to look into the etiology of sinus tachycardia. Many thanks for allowing me to participate in your patient's care. Please feel free to contact me with any questions or concerns. LEVEL OF RISK: Moderate. LEVEL OF COMPLEXITY: Moderate. Job ID: [id number]
[2019-07-07] MEDS ORDERED: Magnesium Citrate 300 ML BOT ONE (07:28)
[2019-07-07] MEDS ORDERED: Pantoprazole 80 MG in Sodium Chloride 0.9% 100 ML IVPB SCH (07:30)
[2019-07-07 08:31] VITALS: BMI 29.7
--- NOTE | 2019-07-07 08:32 | CT ---
PRELIMINARY REPORT/[facility]/EMERGENCY AFTER HOURS PROCEDURE: PROCEDURE INFORMATION: Exam: CT Abdomen And Pelvis With Contrast Exam date and time: 07/07/2019 4:35 AM Clinical history: 44 years old, male; Patient HX: 44m presents for evaluation of abdominal pain that started a few days ago and worsened tonight. PT says his stools are normally reddish in color but are nael than usual today. PT had egd procedure 1 year ago and was told he had ulcers. Abd pain is loc alized to rlq, denies abd surgeries TECHNIQUE: Imaging protocol: Computed tomography of the abdomen and pelvis with intravenous contrast. COMPARISON: No relevant prior studies available. FINDINGS: Liver: Fatty liver infiltration without visible focal mass. Gallbladder and bile ducts: No calcified stones. No ductal dilation. Pancreas: No acute pathology. No ductal dilation. Spleen: No solid mass. No splenomegaly. Adrenals: No mass. Kidneys and ureters: No solid mass. No hydronephrosis. Stomach and bowel: There is dense colonic fecal retention. No mechanical obstruction. Appendix: No evidence of appendicitis. Intraperitoneal space: No free air. Vasculature: No abdominal aortic aneurysm. Lymph nodes: No enlarged lymph nodes. Bladder: Unremarkable as visualized. Reproductive: Unremarkable as visualized. Bones/joints: Chronic degenerative spinal changes without acute fracture or dislocation. Soft tissues: There is small, fat containing umbilical hernia. IMPRESSION: Normal appendix. Fatty liver. Dense colonic fecal retention. No mechanical obstruction. Thank you for allowing us to participate in the care of your patient. Dictated and Authenticated by: Ailyn Murguia MD 07/07/2019 5:28 AM Central Time ([place] & [place]) FINAL REPORT CT ABDOMEN AND PELVIS WITH IV CONTGRAST: I agree with the preliminary report given by Jason. POS: [facility]
[2019-07-07] MEDS ORDERED: FLU VACC QS2019-20(6MOS UP)/PF 60 MCG/0.5 ML SYRINGE IM ONE (08:45)
[2019-07-07] MEDS: Pantoprazole 80 MG, Admixture Fee 1 EACH in Sodium Chloride 0.9% 100 ML IVPB SCH ×2 (10:52→18:59)
[2019-07-07] MEDS ORDERED: ISOVUE-370 76%-LOCM 1 ML ONE (11:46)
[2019-07-07] MEDS: Morphine 2 MG/ML SYRINGE SLOW IVP PRN ×2 (11:56→16:50)
[2019-07-07] MEDS ORDERED: Bisacodyl 10 MG SUPP PR PRN (21:09)
--- NOTE | 2019-07-07 21:11 | PDOC.EVN ---
Event Note - Event Note Event Note: Patient complains that he feels sensation of foreign body stuck in his throat and says his throat hurts when he swallows his saliva. Also reports some chest discomfort and shortness of breath. States he hasn't had a bowel movement since this morning, but the last ones were bloody. Patient also has runny nose and cough. States he got the flu shot in the hospital. He feels dizzy/lightheaded and short of breath. Vitals: reviewed PE: Gen: alert, awake, oriented times three. Face appears flushed, appears to be in pain from discomfort of neck . Obese CV:RRR, no murmurs, rubs or gallops Throat: no pharyngeal erythema Lungs: CTAB Abdomen: + BS, soft, diffuse mild tenderness, no rebound or guarding Extremities: no edema A/P: This is 44 year old male who presented with blood in his stools. Currently complaining of odynophagia/dysphagia #Possible GI bleed #Odynophagia/dysphagia - GI consulted, will perform upper endoscopy tomorrow. NPO after midnight - CBC stable for now. Had normal colonoscopy last year - check neck X ray to evaluate for foreign body in neck #Chest pain #Dyspnea - check EKG - obtain chest X ray
--- NOTE | 2019-07-07 21:39 | RAD ---
SOFT TISSUE NECK: 07/07/19 HISTORY: Foreign body sensation. FINDINGS: On the AP projection, no obvious malalignment. On the lateral projection, predental space is normal. No prevertebral soft tissue swelling. Aerodiges tive tract appears to be patent. Limited evaluation due to motion. Epiglottis has a normal caliber. N o definite radiopaque foreign body. IMPRESSION: No definite radiopaque foreign body. Directed visualization is recommended. POS: [facility]
--- NOTE | 2019-07-07 21:40 | RAD ---
CHEST TWO VIEWS: 07/07/19 HISTORY: Foreign body sensation. COMPARISON: 06/21/19. FINDINGS: Normal cardiac silhouette. Lungs and pleural spaces are clear. Chronic changes in the lung bases. No pneumothorax or osseous abnormalities. No radiopaque foreign body. IMPRESSION: 1. No acute cardiopulmonary process. 2. No radiopaque foreign body. POS: [facility]
[2019-07-08 00:31] LABS: Hemoglobin 12.4 g/dL (14.0-18.0); Mean Corpuscular HGB CONC 31.3 g/dL (32.0-36.0); Mean Corpuscular Hemoglobin 28.3 pg (27.0-31.0); Mean Corpuscular Volume 90.5 fL (78.0-98.0); Mean Platelet Volume 9.3 fL (7.4-10.4); Platelet Count 132 thou/uL (130-400); RBC Distribution Width 13.3 % (11.5-14.5); Red Blood Cell (RBC) Count 4.39 mill/uL (4.70-6.10); White Blood Cell (WBC) Count 9.6 thou/uL (4.8-10.8)
[2019-07-08] MEDS: Morphine 2 MG/ML SYRINGE SLOW IVP PRN ×6 (00:45→23:41)
[2019-07-08 05:53] LABS: Hemoglobin 12.3 g/dL (14.0-18.0); Mean Corpuscular HGB CONC 31.3 g/dL (32.0-36.0); Mean Corpuscular Hemoglobin 27.1 pg (27.0-31.0); Mean Corpuscular Volume 86.4 fL (78.0-98.0); Mean Platelet Volume 9.1 fL (7.4-10.4); Platelet Count 147 thou/uL (130-400); RBC Distribution Width 13.2 % (11.5-14.5); Red Blood Cell (RBC) Count 4.53 mill/uL (4.70-6.10)
[2019-07-08 06:04] LABS: ALT (SGPT) 17 U/L (8-55); AST (SGOT) 19 U/L (5-34); Albumin 3.7 g/dL (3.5-5.0); Alkaline Phosphatase 95 U/L (40-110); Anion Gap 12 mmol/L (10-20); BUN (Urea Nitrogen) 9 mg/dL (8.9-20.6); Bilirubin, Total 0.4 mg/dL (0.2-1.2); Calc. Creatinine Clearance 92 mL/min (70-130); Calcium 8.2 mg/dL (7.8-10.44); Carbon Dioxide 24 mmol/L (22-29); Chloride 104 mmol/L (98-107); Estimated GFR-MDRD 68; Globulin 3.1 g/dL (2.4-3.5); Glucose 78 mg/dL (70-105); Magnesium 1.8 mg/dL (1.6-2.6); Protein, Total 6.8 g/dL (6.0-8.3); Sodium 136 mmol/L (136-145)
[2019-07-08] MEDS: Pantoprazole 80 MG, Admixture Fee 1 EACH in Sodium Chloride 0.9% 100 ML IVPB SCH ×2 (06:24→16:06)
--- NOTE | 2019-07-08 16:43 | OP ---
DATE OF PROCEDURE: 07/08/2019 PROCEDURES PERFORMED: 1. Esophagogastroduodenoscopy with biopsy. 2. Empiric esophageal dilation with a 50-Czech Decker dilator due to history of dysphagia. PREOPERATIVE DIAGNOSES: History of melena, chest tightness, also history of dysphagia. POSTOPERATIVE DIAGNOSES: 1. Normal esophagus. 2. Normal stomach and duodenum. He did have 2 small polyps in the gastric body, removed. 3. No esophageal stricture seen. DESCRIPTION OF PROCEDURE: The patient was placed on his left lateral position and was given sedation by Anesthesia Department. A Pentax video gastroscope under direct vision passed down the oropharynx past the GE junction into the stomach and subsequently into the descending duodenum. The vocal cords appeared very healthy. The esophageal mucosa appears normal. There was no esophagitis or any erosion seen. Also, the lumen was wide open. The scope advanced into stomach without any difficulty. Upon entering the stomach, the scope was retroflexed to visualize fundus and cardia. No lesion seen in the fundus or cardia. There were 2 small gastric polyps of the gastric body. Both removed with biopsy forceps. The stomach was otherwise very healthy and does not show any gastritis and no ulcerations. In the incisura angularis, no pathology seen. Retroflexion failed to show any pathology in fundus or cardia. In the duodenal bulb, descending duodenum, no pathology seen. The stomach decompressed and the scope removed. Because of history of dysphagia, a 50-Czech Decker dilator passed down with no resistance. RECOMMENDATIONS: 1. Diet as tolerated. 2. He has had two colonoscopies in 2018. I see no reason for repeat colonoscopy. From GI standpoint, he really can be discharged home. Job ID: [id number]
[2019-07-08] MEDS ORDERED: Aluminum & Magnesium Hydroxide 60 ML, Lidocaine 2% Viscous Solution 30 ML, diphenhydrAM... SSW PRN (18:44)
[2019-07-08] MEDS ORDERED: Calcium Carbonate 500 MG ChewTAB PO PRN (18:46)
--- NOTE | 2019-07-08 18:46 | PDOC.HOSPP ---
- Subjective Encounter Date: 07/08/19 Encounter Time: 18:44 Subjective: Patient had EGD today which was normal. Patient still complains of burning in his chest. Says he has difficulty eating because it hurts to swallow saliva. Feels nauseous, but hasn't vomited. No abdominal pain. He states he still hasn't had a bowel movement yet. He also complains that it hurts to urinate. - Objective Vital Signs & Weight: Vital Signs (12 hours) Temp Pulse Resp BP Pulse Ox 07/08/19 10:45 97.9 F 82 17 105/55 L 95 07/08/19 08:00 98.1 F 85 18 115/71 95 Weight Weight 178 lb 7 oz I&O: 07/07/19 07/08/19 07/09/19 06:59 06:59 06:59 Intake Total 310 1180 Output Total 1100 500 Balance -790 680 Result Diagrams: 07/08/19 04:52 07/08/19 04:52 Additional Labs: Accuchecks 07/07/19 21:42 POC Glucose 102 Hospitalist ROS - Medication Medications: Active Medications Generic Name Dose Route Start Last Admin Trade Name Freq PRN Reason Stop Dose Admin Pantoprazole Sodium 80 mg/ 100 mls @ 10 mls/hr 07/07/19 09:00 07/08/19 16:06 Miscellaneous Medication 1 IVPB 100 mls each/ Sodium Chloride INF SUNITA Administration Morphine Sulfate 2 mg 07/07/19 11:10 07/08/19 16:06 Morphine SLOW IVP 2 mg Q4H PRN Administration Severe Pain (7-10) - Exam General Appearance: NAD, awake alert Eye: PERRL, anicteric sclera ENT: normocephalic atraumatic, no oropharyngeal lesions ENT - other findings: no pharyngeal erythema Heart: RRR, no murmur, no gallops, no rubs Respiratory: CTAB, no wheezes, no rales, no ronchi Gastrointestinal: soft Gastrointestinal - other findings: RLQ tenderness and LLQ tenderness Extremities: no cyanosis, no clubbing, no edema Skin: normal turgor, no lesions, no rashes Hosp A/P - Plan Soft tissue neck Xray: no foreign body CT abdomen: normal appendix. Fatty liver .Dense colonic fecal retentio n This is a 44 year old male who presented with rectal bleeding, admitted for GI bleed. EGD negative Acute lower Gi bleed - seems to have resolved. EGD negative - d/c protonix drip. Per GI no need for colonoscopy #GERD #Odynophagia - patient has burning when he swallows food. EGD negative. Throat appears benign - consult speech - continue protonix, add tums prn, magic mouthwash prn - neck X ray normal Dysuria - repeat UA. First UA negative Constipation -CT shows dense colonic retention. Continue miralax, senna/colace #Obesity #Fatty Liver - outpatient follow up , weight loss #Anemia - Hb 12, check B12, folate, iron panel Dispo: likely d/c in am pending improvement in ability to eat, constipation
[2019-07-08] MEDS ORDERED: Pantoprazole 40 MG GRANULES PACKET PO SCH (19:00)
[2019-07-08] MEDS ORDERED: Polyethylene Glycol 3350 17 GM Packet PO SCH (19:00)
[2019-07-08] MEDS ORDERED: Senokot S 8.6-50 MG TAB PO SCH (19:00)
[2019-07-09] MEDS: Morphine 2 MG/ML SYRINGE SLOW IVP PRN ×3 (04:06→14:48)
[2019-07-09 06:32] LABS: Mean Corpuscular HGB CONC 31.8 g/dL (32.0-36.0); Mean Corpuscular Hemoglobin 27.5 pg (27.0-31.0); Mean Corpuscular Volume 86.7 fL (78.0-98.0); Mean Platelet Volume 8.8 fL (7.4-10.4); Platelet Count 137 thou/uL (130-400); Red Blood Cell (RBC) Count 4.37 mill/uL (4.70-6.10); White Blood Cell (WBC) Count 7.4 thou/uL (4.8-10.8)
[2019-07-09 06:53] LABS: Iron 34 ug/dL (65-175); Iron Binding Capacity, Total 264 mcg/dL (261-462)
[2019-07-09 07:09] LABS: Ferritin 78.44 ng/mL (22-322)
[2019-07-09] MEDS ORDERED: Folic Acid 1 MG TAB PO SCH (09:00)
[2019-07-09] MEDS: Senokot S 8.6-50 MG TAB PO SCH ×2 (09:07→20:40)
[2019-07-09] MEDS: Polyethylene Glycol 3350 17 GM Packet PO SCH (09:08)
[2019-07-09] MEDS: Pantoprazole 40 MG GRANULES PACKET PO SCH (09:08)
--- NOTE | 2019-07-09 09:36 | CON ---
DATE OF CONSULTATION: 07/07/2019 REASON FOR CONSULTATION: Abdominal pain, history of hematochezia and also some passing dark stool. HISTORY OF PRESENT ILLNESS: Isidro Holbrook is a 44-year-old male, came to the ER because of abdominal pain for the last 2 to 3 days. He also gave history of passing bright red blood per rectum and dark stool. The patient complains of abdominal pain right lower quadrant. Abdominal CAT scan done on admission showed no acute pathology except for retained stool. The patient tells me that he has had some constipation off and on and does strain during bowel movement. he saw some mild amount of bright red blood per rectum when he was straining. Subsequently, he was not straining and again, he still has mild bleeding. He does have a picture of the blood in stool from his phone . The patient was seen by me in April 2018 and also June 2018. The patient had an EGD and was found to have small ulcer. He had a colonoscopy which revealed no pathology. He had a very good exam done in 2018. Although he has history of black tarry stool and also have bleeding per rectum. His blood count is actually very stable. On July 06, 2019, hemoglobin 13.9, hematocrit 44, platelet count is 174,000. His chemistry panel is actually normal, glucose 117, normal AST and ALT. The patient has had no bleeding since admission. . No nausea or vomiting. . ALLERGIES: NONE. MEDICAL ILLNESSES: Gastric ulcer in 2018. Speech impairment. SOCIAL HISTORY: The patient does not smoke or drink alcohol. PAST SURGICAL HISTORY: EGD and colonoscopy in 2018 FAMILY HISTORY: . MEDICATIONS: PHYSICAL EXAMINATION: GENERAL: He appears very comfortable, in no distress. He is awake, alert . VITAL SIGNS: . HEENT: Conjunctivae clear. . LUNGS: Clear to auscultation. ABDOMEN: Actually nontender at the present time. There is no rebound or guarding. . EXTREMITIES: Reveal no edema. LABORATORY DATA: hematocrit 13.9, hematocrit 44. His chemistry panel is actually normal. CLINICAL IMPRESSION: 1. A 44-year-old male with history of passing black tarry stool . I think the blood seems to be more from the anal outlet as it is very pinkish and very of small amount of blood. Does have constipation . 2. Mild speech impairment. Recommend follow up labs . Job ID: [id number]
[2019-07-09] MEDS ORDERED: Fleet Enema 133 ML BOT PR SCH (12:00)
[2019-07-09] MEDS ORDERED: ISOVUE-370 76%-LOCM 1 ML ONE (12:30)
[2019-07-09 16:04] LABS: Bilirubin Negative (Negative); Blood, Urine Negative (Negative); Clarity Clear (Clear); Glucose, Urine (Dipstick) Normal (Negative); Leukocyte 75 Leu/uL (Negative); Nitrite Negative (Negative); Protein, Urine (Dipstick) Negative (Neg-Trace); RBC/HPF 0-3 HPF (0-3); Squamous Epithelial 0-3 HPF (0-3); Urobilinogen Normal mg/dL (Less than 2)
[2019-07-09 16:13] LABS: Bacteria/HPF 1+ HPF (None Seen)
[2019-07-09] MEDS ORDERED: Nitroglycerin 0.4 MG TAB (25 Tab Bottle) SL PRN (20:12)
--- NOTE | 2019-07-09 20:14 | PDOC.HOSPP ---
- Subjective Encounter Date: 07/09/19 Encounter Time: 15:00 Subjective: Patient today still complains of pain with eating solid foods. Per speech he did well with apple sauce and liquids. Refused solids. Reports burning pain in his chest and abdomen . He had not received antacids prn yet per nursing staff , these were pending to be given. He reports nausea and feeling like he is going to vomit. Barium swallow was ordered but patient refused this am. Patient has still not had a bowel movement. Took miralax with no improvement per patient. Enema given in the afternoon - Objective Vital Signs & Weight: Vital Signs (12 hours) Temp Pulse Resp BP Pulse Ox 07/09/19 16:19 97.7 F 85 16 123/79 94 L 07/09/19 11:31 98.7 F 83 16 115/72 94 L 07/09/19 09:00 98.9 F 82 16 110/67 94 L Weight Admit Weight 178 lb 7 oz Weight 178 lb 7 oz I&O: 07/08/19 07/09/19 07/10/19 06:59 06:59 06:59 Intake Total 310 1180 Output Total 1100 500 Balance -790 680 Result Diagrams: 07/09/19 06:12 07/08/19 04:52 Hospitalist ROS - Review of Systems Constitutional: denies: fever, chills ENT: denies: ear discharge Respiratory: denies: dry - Medication Medications: Active Medications Generic Name Dose Route Start Last Admin Trade Name Freq PRN Reason Stop Dose Admin Calcium Carbonate 1,000 mg 07/08/19 18:46 07/09/19 16:03 Tums PO 1,000 mg Q4H PRN Administration Heartburn or Indigestion Al Hydroxide/Mg Hydroxide 60 0 ml 07/08/19 18:44 07/09/19 16:03 ml/ Lidocaine HCl 30 ml/ SSW 10 ml Diphenhydramine HCl 75 mg PRN PRN Administration Mouth Irritation Morphine Sulfate 2 mg 07/07/19 11:10 07/09/19 14:48 Morphine SLOW IVP 2 mg Q4H PRN Administration Severe Pain (7-10) Pantoprazole Sodium 40 mg 07/09/19 09:00 07/09/19 09:08 Protonix PO 40 mg DAILY SUNITA Administration Polyethylene Glycol 17 gm 07/09/19 09:00 07/09/19 09:08 Miralax PO 17 gm DAILY SUNITA Administration Senna/Docusate Sodium 1 tab 07/09/19 09:00 07/09/19 09:07 Senokot S PO 1 tab BID SUNITA Administration - Exam General Appearance: NAD, awake alert Eye: PERRL, anicteric sclera ENT: normocephalic atraumatic, no oropharyngeal lesions Neck: supple, symmetric, no JVD Heart: RRR, no murmur, no gallops, no rubs Respiratory: CTAB, no wheezes, no rales, no ronchi Gastrointestinal: soft, non-tender, non-distended Extremities: no cyanosis, no clubbing, no edema Skin: normal turgor, no lesions, no rashes Neurological: cranial nerve grossly intact, normal sensation to touch, no focal deficits, no new deficit Hosp A/P - Plan Soft tissue neck Xray: no foreign body CT abdomen: normal appendix. Fatty liver .Dense colonic fecal retentio n Chest X ray: no acute diseaes This is a 44 year old male who presented with rectal bleeding, admitted for GI bleed. EGD negative Acute lower Gi bleed - seems to have resolved. EGD negative - d/c protonix drip. Per GI no need for colonoscopy Constipation -CT shows dense colonic retention. Continue miralax, senna/colace. Enema given and pending bowel movement still #GERD #Odynophagia - patient has burning when he swallows food. EGD negative. Throat appears benign . Chest X ray and neck X ray are normal - consult speech - continue protonix, continue tums prn, magic mouthwash prn. Check EKG to rule out cardiac cause, try nitro esophageal spasm - neck X ray normal - patient refused barium swallow - ENT consulted Dysuria - repeat UA showing mild leukocyte esterase of 75. Will send urine culture #Obesity #Fatty Liver - outpatient follow up , weight loss #Anemia from Folate Deficiency vs mild B12 deficiency - started on folic acid 1 mg daily. Folate level low - B12 borderline low at 200, check methylmalonic acid. Start B12 supplements empirically Dispo: likely d/c in am pending improvement in ability to eat, constipation
[2019-07-09] MEDS ORDERED: Lidocaine 2% Viscous Solution 10 ML, Aluminum & Magnesium Hydroxide 30 ML SSW SCH (20:15)
[2019-07-09] MEDS: traMADol HCl 50 MG TAB PO PRN (20:40)
[2019-07-09 20:46] LABS: #Eosinphils 0.3 thou/uL (0.0-0.7); #Lymphocytes 1.1 thou/uL (1.20-3.40); #Monocytes 0.6 thou/uL (0.11-0.59); #Neutrophils 5.8 thou/uL (1.40-6.50); %Basophils 0.2 % (0.0-1.0); %Eosinophils 3.4 % (0.0-10.0); %Lymphocytes 13.7 % (21.0-51.0); %Monocytes 7.3 % (0.0-10.0); %Neutrophils 75.4 % (42.0-75.0); Hemoglobin 12.7 g/dL (14.0-18.0); Mean Corpuscular HGB CONC 32.5 g/dL (32.0-36.0); Mean Corpuscular Hemoglobin 27.9 pg (27.0-31.0); Mean Corpuscular Volume 85.8 fL (78.0-98.0); Mean Platelet Volume 8.5 fL (7.4-10.4); Platelet Count 143 thou/uL (130-400); Red Blood Cell (RBC) Count 4.55 mill/uL (4.70-6.10); White Blood Cell (WBC) Count 7.7 thou/uL (4.8-10.8)
[2019-07-09 21:01] LABS: Anion Gap 14 mmol/L (10-20); BUN (Urea Nitrogen) 10 mg/dL (8.9-20.6); Calc. Creatinine Clearance 94 mL/min (70-130); Carbon Dioxide 25 mmol/L (22-29); Chloride 102 mmol/L (98-107); Estimated GFR-MDRD 69; Glucose 82 mg/dL (70-105); Magnesium 1.9 mg/dL (1.6-2.6); Potassium 4.3 mmol/L (3.5-5.1); Sodium 137 mmol/L (136-145)
--- NOTE | 2019-07-09 21:10 | RAD ---
Chest AP view INDICATION: Chest pain COMPARISON: July 07, 2019 FINDINGS: Lungs:The lungs are clear Cardiac silhouette:The cardiomediastinal silhouette appears within normal limits. Pulmonary vasculature:Normal Pleural spaces:No pleural effusion or pneumothorax is demonstrated. Upper abdomen:No abnormality seen. Osseous structures: No acute osseous abnormality. Additional findings:None. IMPRESSION: No acute cardiopulmonary abnormality.
--- NOTE | 2019-07-09 23:04 | PDOC.EVN ---
Event Note - Event Note Event Note: Notified by RN at 20:00 re: patient complaining of chest pain. EKG done and showed normal sinus rhythm. Initial troponin negative. Labs repeated and unremarkable. CXR obtained and without any acute abnormalities. Patient reassessed, states pain has been constant for 2 hours, reports pain in left hand. Has some discomfort with deep inspiration. No trauma. Of note, he has history of underlying learning deficit. Vitals: BP 109/70, HR 80, RR 18, Sats 96% on RA. Mild cough noted on exam. Possibly musculoskeletal. Will continue to trend troponins. Will add d-dimer. Tramadol prescribed for pain. GI cocktail as he also described epigastric burning sensation. Also simethicone prescribed. Lungs clear on exam. Sats remain 96% on RA. He appears to be in no distress. Abdomen soft. Mild tenderness to left chest with palpation. Strength 5/5 in bilateral upper extremities.
[2019-07-09] MEDS ORDERED: Simethicone Chewable 80 MG TAB PO PRN (23:05)
--- NOTE | 2019-07-09 23:28 | PDOC.EVN ---
Event Note - Event Note Event Note: Patient reported some chest pain, complains it was burning. No relief with antacids. EKG done per night float, troponins pending. Administer aspirin and nitro and reassessat night
[2019-07-09] MEDS ORDERED: Aspirin Chewable 81 MG TAB PO SCH (23:30)
[2019-07-10] MEDS: Morphine 2 MG/ML SYRINGE SLOW IVP PRN ×3 (01:30→20:11)
[2019-07-10] MEDS ORDERED: Melatonin 3 MG TAB PO SCH (02:00)
[2019-07-10 04:52] LABS: Hemoglobin 12.4 g/dL (14.0-18.0); Mean Corpuscular Hemoglobin 28.4 pg (27.0-31.0); Mean Corpuscular Volume 85.9 fL (78.0-98.0); Mean Platelet Volume 8.7 fL (7.4-10.4); Platelet Count 146 thou/uL (130-400); Red Blood Cell (RBC) Count 4.39 mill/uL (4.70-6.10); White Blood Cell (WBC) Count 6.8 thou/uL (4.8-10.8)
[2019-07-10 04:58] LABS: Anion Gap 14 mmol/L (10-20); BUN (Urea Nitrogen) 12 mg/dL (8.9-20.6); Calc. Creatinine Clearance 88 mL/min (70-130); Carbon Dioxide 26 mmol/L (22-29); Chloride 99 mmol/L (98-107); Estimated GFR-MDRD 64; Glucose 101 mg/dL (70-105); Potassium 4.2 mmol/L (3.5-5.1); Sodium 135 mmol/L (136-145)
--- NOTE | 2019-07-10 08:09 | CT ---
PRELIMINARY REPORT/[facility]/EMERGENCY AFTER HOURS PROCEDURE: PROCEDURE INFORMATION: Exam: CT Angiography Chest With Contrast Exam date and time: 07/10/2019 12:30 AM Clinical history: 44 years old, male; Left-sided chest pain; Patient HX: Patient complains of chest p ain. Denies shortness of breath. Elevated d-dimer TECHNIQUE: Imaging protocol: Computed tomographic angiography of the chest with intravenous contrast. 3D rendering: MIP reconstructed images were created and reviewed. COMPARISON: No relevant prior studies available. FINDINGS: Pulmonary arteries: There is no evidence of peripheral filling defects within the pulmonary arterial circulation to suggest pulmonary embolism. Aorta: Unremarkable. No aortic aneurysm. No aortic dissection. Lungs: There is subpleural atelectasis of the dependent portions of the lungs. Pleural space: Unremarkable. No pneumothorax. No pleural effusion. Heart: Unremarkable. No cardiomegaly. No pericardial effusion. Lymph nodes: Unremarkable. No enlarged lymph nodes. Bones/joints: Unremarkable. No acute fracture. Soft tissues: Unremarkable. IMPRESSION: There is no CT evidence of acute pulmonary embolism. Thank you for allowing us to participate in the care of your patient. Dictated and Authenticated by: Siddharth Lowe MD 07/10/2019 12:54 AM Central Time ([place] & [place]) FINAL REPORT EMERGENCY AFTER HOURS CTA CHEST WITH CONTRAST: FINDINGS/IMPRESSION: I agree with the findings and impression given in the preliminary report per [facility] physician. No evide nce of pulmonary thromboembolism.
[2019-07-10] MEDS: Pantoprazole 40 MG GRANULES PACKET PO SCH (08:33)
[2019-07-10] MEDS: Cyanocobalamin (Vitamin B-12) 1,000 MCG TAB PO SCH (08:33)
[2019-07-10] MEDS: Senokot S 8.6-50 MG TAB PO SCH ×2 (08:33→20:11)
[2019-07-10] MEDS: Folic Acid 1 MG TAB PO SCH (08:33)
[2019-07-10] MEDS: Polyethylene Glycol 3350 17 GM Packet PO SCH (08:33)
--- NOTE | 2019-07-10 10:34 | EKG ---
Test Reason : Blood Pressure : / mmHG Vent. Rate : 083 BPM Atrial Rate : 083 BPM P-R Int : 174 ms QRS Dur : 082 ms QT Int : 368 ms P-R-T Axes : 052 051 074 degrees QTc Int : 432 ms Normal sinus rhythm Normal ECG When compared with ECG of 07-JUL-2019 05:57, (Unconfirmed) Nonspecific T wave abnormality no longer evident in Inferior leads Confirmed by TERRY DIXON, JESUS ([id number]) on 07/10/2019 10:34:02 AM Referred By: DR. WARD Confirmed By:JESUS STEWART MD
[2019-07-10] MEDS ORDERED: ADENOSINE 60 MG/20 ML VIAL ONE (13:12)
[2019-07-10] MEDS ORDERED: Acetaminophen 325 MG TAB PO PRN (13:38)
[2019-07-10] MEDS ORDERED: Aspirin 81 mg Enteric Coated Tablet PO SCH (13:45)
--- NOTE | 2019-07-10 16:30 | EKG ---
Test Reason : Blood Pressure : / mmHG Vent. Rate : 079 BPM Atrial Rate : 079 BPM P-R Int : 178 ms QRS Dur : 080 ms QT Int : 374 ms P-R-T Axes : 060 055 072 degrees QTc Int : 428 ms Normal sinus rhythm ST elevation, consider early repolarization Borderline ECG Confirmed by KINA CARPIO ([id number]) on 07/10/2019 4:29:47 PM Referred By: PEEWEE Confirmed By:KINA CARPIO
[2019-07-10] MEDS ORDERED: Pepto Bismol Chew TAB PO PRN (16:57)
[2019-07-10] MEDS ORDERED: Sucralfate 1 GM TAB PO SCH ×2 (17:00→21:00)
--- NOTE | 2019-07-10 17:37 | PDOC.HOSPP ---
- Subjective Encounter Date: 07/10/19 Encounter Time: 16:30 Subjective: The patient continues to have some pain with swallowing. Reports some chest discomfort, stated that when he got the nuclear stress test injection that it made his pain worst. He complains of RLQ pain, states it hurts when he urinates. His last bowel movement was yesterday. - Objective Vital Signs & Weight: Vital Signs (12 hours) Temp Pulse Resp BP BP Pulse Ox 07/10/19 16:00 97.8 F 75 16 121/70 98 07/10/19 11:40 97.8 F 76 14 105/67 95 07/10/19 07:50 97.9 F 81 16 105/65 95 Weight Admit Weight 178 lb 7 oz Weight 178 lb 7 oz I&O: 07/09/19 07/10/19 07/11/19 06:59 06:59 06:59 Intake Total 1180 885 Output Total 500 1350 Balance 680 -465 Result Diagrams: 07/10/19 04:26 07/10/19 04:26 Hospitalist ROS - Review of Systems Constitutional: denies: fever, chills - Medication Medications: Active Medications Generic Name Dose Route Start Last Admin Trade Name Freq PRN Reason Stop Dose Admin Acetaminophen 650 mg 07/10/19 13:38 07/10/19 13:45 Tylenol PO 650 mg Q6H PRN Administration Pain Al Hydroxide/Mg Hydroxide 60 0 ml 07/08/19 18:44 07/09/19 16:03 ml/ Lidocaine HCl 30 ml/ SSW 10 ml Diphenhydramine HCl 75 mg PRN PRN Administration Mouth Irritation Cyanocobalamin 1,000 mcg 07/10/19 09:00 07/10/19 08:33 Vitamin B-12 PO 1,000 mcg DAILY SUNITA Administration Folic Acid 1 mg 07/10/19 09:00 07/10/19 08:33 Folvite PO 1 mg DAILY SUNITA Administration Morphine Sulfate 2 mg 07/07/19 11:10 07/10/19 08:32 Morphine SLOW IVP 2 mg Q4H PRN Administration Severe Pain (7-10) Pantoprazole Sodium 40 mg 07/09/19 09:00 07/10/19 08:33 Protonix PO 40 mg DAILY SUNITA Administration Polyethylene Glycol 17 gm 07/09/19 09:00 07/10/19 08:33 Miralax PO 17 gm DAILY SUNITA Administration Senna/Docusate Sodium 1 tab 07/09/19 09:00 07/10/19 08:33 Senokot S PO 1 tab BID SUNITA Administration Simethicone 80 mg 07/09/19 23:05 07/10/19 01:30 Mylicon Chewable PO 80 mg PCHS PRN Administration Gas Pain Sucralfate 1 gm 07/10/19 17:00 07/10/19 17:15 Carafate PO 07/10/19 19:00 1 gm NOW SUNITA Administration Tramadol HCl 50 mg 07/09/19 20:10 07/09/19 20:40 Ultram PO 50 mg Q4H PRN Administration Pain - Exam General Appearance: NAD, awake alert Eye: PERRL, anicteric sclera ENT: normocephalic atraumatic Neck: supple, symmetric, no JVD Heart: RRR, no murmur, no gallops, no rubs Respiratory: CTAB, no wheezes, no rales, no ronchi Gastrointestinal: soft Gastrointestinal - other findings: RLQ tenderness Extremities: no cyanosis, no clubbing, no edema Skin: normal turgor, no lesions, no rashes Neurological: cranial nerve grossly intact, normal sensation to touch, no focal deficits, no new deficit Musculoskeletal: normal tone, normal strength, no muscle wasting Hosp A/P - Plan Soft tissue neck Xray: no foreign body CT abdomen: normal appendix. Fatty liver .Dense colonic fecal retention Chest X ray: no acute diseaes This is a 44 year old male who presented with rectal bleeding, admitted for GI bleed. EGD negative Acute lower Gi bleed - seems to have resolved. EGD negative - d/c protonix drip. Per GI no need for colonoscopy Constipation -CT shows dense colonic retention. Continue miralax, senna/colace and enema prn Chest discomfort - likely GERD potentially vs anxiety -EKG negative, trop negative times three. Vitals all appear normal - likely psychological component to this given that his facial expressions don' t match his complaints of pain. However nuclear stress test ordered currently pending #Odynophagia - EGD negative. Continue protonix, tums prn, magic mouthwash for possible GERD - nitro showed no benefit - neck Xray normal. - Patient refused barium swallow yesterday. Agreed to try barium swallow tomorrow if stress test negative. ENT consulted, recommended barium swallow as well - speech consulted Dysuria - repeat UA showing mild leukocyte esterase of 75. Urine culture normal #Obesity #Fatty Liver - outpatient follow up , weight loss #Anemia from Folate Deficiency vs mild B12 deficiency - started on folic acid 1 mg daily. Folate level low - B12 borderline low at 200, check methylmalonic acid. Start B12 supplements empirically Dispo: likely d/c in am pending improvement in ability to eat
--- NOTE | 2019-07-10 19:16 | NM ---
Radionucleotide stress only myocardial perfusion scan with CT attenuation correction and SPECT imagin g Left ventricular wall motion evaluation and ejection fraction HISTORY: Chest pain. FINDINGS: Adenosine protocol. Heterogeneous uptake of radiotracer throughout the left ventricular eros cardium. No focal perfusion defect. QGS analysis of gated SPECT images shows slightly abnormal motion of the mid anterior wall. Ejection fraction calculated at 60%. IMPRESSION: Normal myocardial perfusion exam. Normal LVEF. Slight dyskinesis of the midportion of the anterior wall. Cause is not evident.
[2019-07-10] MEDS ORDERED: Fleet Enema 133 ML BOT PR PRN (19:23)
[2019-07-10] MEDS ORDERED: Fleet Enema 133 ML BOT PR SCH (19:30)
[2019-07-10] MEDS: Sucralfate 1 GM TAB PO SCH (20:11)
[2019-07-10] MEDS: traMADol HCl 50 MG TAB PO PRN (22:20)
[2019-07-10] MEDS ORDERED: Lorazepam 1 MG TAB PO SCH (23:45)
[2019-07-10] MEDS ORDERED: Ketorolac Tromethamine 30 MG/ML VIAL IVP SCH (23:45)
[2019-07-11] MEDS: Morphine 2 MG/ML SYRINGE SLOW IVP PRN ×3 (00:57→11:53)
--- NOTE | 2019-07-11 01:36 | CON ---
DATE OF CONSULTATION: REQUESTING PHYSICIAN: Mikaela Burgos MD. REASON FOR CONSULT: Dysphagia and throat pain. ADMITTING DIAGNOSES: Neck pain, difficulty swallowing with negative EGD. IMPRESSIONS OR RECOMMENDATIONS: Isidro Holbrook is a 44-year-old male patient presenting with a history of difficulty swallowing and cognitive delay and issues with swallowing solid food and pain. After a negative EGD, the patient is still having difficulty swallowing solid foods and having some pain associated with it. He is able to tolerate liquids and soft foods given negative EGD and difficulties swallowing. We would recommend barium esophagram, however the patient is currently refusing. This barium esophagram may elucidate either an esophageal spasm or cricopharyngeal/other issue with swallowing that may be causing his globus sensation and difficulty with swallowing solid foods. SUBJECTIVE: Pain with swallowing solid foods. However, patient is able to tolerate liquids and solids. History was obtained from the patient. HISTORY OF PRESENT ILLNESS: A 44-year-old gentleman presenting with several days of difficulty swallowing solid foods in particular. The patient denies fever, nausea, vomiting, chills, abdominal pain, or diarrhea. The patient has no difficulty passing liquids or soft foods and is tolerating his secretions well. He has no respiratory distress or stridor, shortness of breath. He has no recent surgery or trauma to his neck. PAST MEDICAL HISTORY: Noncontributory. PAST SURGICAL HISTORY: No recent head or neck surgeries. CURRENT MEDICATIONS: Please see chart. ALLERGIES: NO KNOWN DRUG ALLERGIES. SOCIAL AND FAMILY HISTORY: Noncontributory. REVIEW OF SYSTEMS: SKIN: Negative. EYES: Negative. EARS, NOSE, AND THROAT: Please see HPI, otherwise negative. RESPIRATORY: Negative. CARDIOVASCULAR: Negative. GASTROINTESTINAL: Neck pain with swallowing. MUSCULOSKELETAL: Negative. NEUROLOGIC: Negative. HEMATOLOGIC: Negative. LYMPHATIC: Negative. IMMUNOLOGIC: Negative. ENDOCRINE: Negative. PHYSICAL EXAMINATION: GENERAL: No acute distress. No stridor. Voice is clear and strong. Responding appropriately to commands. HEAD AND FACE: Normocephalic, atraumatic. No facial skin lesions, no maxillary tenderness. No frontal tenderness. No parotid gland masses, lesions, or tenderness. No submandibular gland tenderness. No masses or lesions. Facial strength is symmetric. EYES: Extraocular movements intact. Pupils round, reactive to light. Sclerae clear and anicteric. EARS: Clinical speech thresholds normal. External ears normal and external ear canals are clear. NOSE: External nose is normal. Nasal mucosa normal. Septum midline. Inferior turbinates are healthy. No polyps. No nasal discharge. MOUTH AND THROAT: Oral mucosa is moist without lesions. There is no saliva buildup in the floor of mouth or in the posterior pharynx. Tongue and floor of mouth are without masses. Palate and uvula without lesions, symmetric in elevation. Tonsils are symmetric without lesions. Oropharynx clear. Pharyngeal zhang are normal. There is no evidence of erythema or edema. There is no evidence of infection. NECK: No masses. Normal appearance for age. Trachea is midline. Thyroid is normal size and without apparent nodules. Mobility of the larynx causes mild pain in the patient around the cricoid at the level of the cricoid, see below. RESPIRATORY: Normal respiratory effort. No retractions. Normal thoracic expansion. CARDIOVASCULAR: Peripheral vascular system normal. LYMPHATIC: No palpable cervical lymphadenopathy. NEUROLOGIC AND PSYCHIATRIC: Cranial nerves 2-12 are grossly normal. Alert and oriented. Mood and affect are normal and the patient is responding to commands. Job ID: [id number]
[2019-07-11] MEDS ORDERED: Lidocaine 2% Viscous Solution 10 ML, Aluminum & Magnesium Hydroxide 30 ML SSW SCH (02:45)
[2019-07-11] MEDS ORDERED: Ketorolac Tromethamine 30 MG/ML VIAL IVP PRN (05:00)
[2019-07-11 05:30] LABS: Hemoglobin 12.8 g/dL (14.0-18.0); Mean Corpuscular HGB CONC 33.3 g/dL (32.0-36.0); Mean Corpuscular Hemoglobin 28.4 pg (27.0-31.0); Mean Corpuscular Volume 85.3 fL (78.0-98.0); Platelet Count 156 thou/uL (130-400); RBC Distribution Width 12.8 % (11.5-14.5); Red Blood Cell (RBC) Count 4.51 mill/uL (4.70-6.10); White Blood Cell (WBC) Count 6.1 thou/uL (4.8-10.8)
[2019-07-11 05:53] LABS: Anion Gap 15 mmol/L (10-20); BUN (Urea Nitrogen) 13 mg/dL (8.9-20.6); Calc. Creatinine Clearance 81 mL/min (70-130); Calcium 8.9 mg/dL (7.8-10.44); Carbon Dioxide 27 mmol/L (22-29); Chloride 99 mmol/L (98-107); Estimated GFR-MDRD 58; Glucose 90 mg/dL (70-105); Potassium 4.1 mmol/L (3.5-5.1); Sodium 137 mmol/L (136-145)
--- NOTE | 2019-07-11 11:36 | RAD ---
MODIFIED BARIUM SWALLOW: HISTORY: Dysphagia, unspecified. Feeding difficulties. Odynophagia complaint. EXPOSURE: 0.98 Gy/cm2 1.7 minutes FINDINGS: In the presence of the speech pathologist, the patient was administered thin liquid and pudding consi stencies. The patient was also administered a standard 13 mm barium tablet. There is evidence of delay in triggering of the swallowing mechanism. There is some premature spillag e into the vallecula and piriform sinus. No evidence of penetration or aspiration. The 13 mm barium tablet passed when administered pudding consistencies. IMPRESSION: Please for to speech pathologist report for feeding recommendation. Transcribed Date/Time: 07/11/2019 12:22 PM
--- NOTE | 2019-07-11 11:40 | RAD ---
BARIUM SWALLOW ESOPHAGRAM: HISTORY: Odontophagia. EXPOSURE: 2.3 minutes 6.506 Gy/cm2 FINDINGS: The patient was administered effervescent crystals followed by thick barium and thin barium. The arpan ent was only able to swallow small amounts of the barium. Grossly no abnormality with regards to the sclerotic cervical and thoracic esophagus. IMPRESSION: Grossly no abnormality with regard to the esophagus. Consider endoscopy for better evaluation. Transcribed Date/Time: 07/11/2019 12:17 PM
[2019-07-11] MEDS: Polyethylene Glycol 3350 17 GM Packet PO SCH (11:55)
[2019-07-11] MEDS: Senokot S 8.6-50 MG TAB PO SCH (11:55)
[2019-07-11] MEDS: Sucralfate 1 GM TAB PO SCH ×2 (11:55→15:20)
[2019-07-11] MEDS: Pantoprazole 40 MG GRANULES PACKET PO SCH (11:55)
[2019-07-11] MEDS: Cyanocobalamin (Vitamin B-12) 1,000 MCG TAB PO SCH (11:56)
[2019-07-11] MEDS: Folic Acid 1 MG TAB PO SCH (11:56)
[2019-07-11 16:22] VITALS: BP 131/82; TEMP 98.2
--- NOTE | 2019-07-11 17:42 | PDOC.HOSPP ---
- Subjective Encounter Date: 07/11/19 Encounter Time: 17:00 Subjective: The patient reports some blood on toilet paper when he wiped. He has some RLQ and LLQ tenderness. He is having bowel movements. Explained barium swallow results to him. - Objective Vital Signs & Weight: Vital Signs (12 hours) Temp Pulse Resp BP BP Pulse Ox 07/11/19 16:00 98.2 F 95 16 131/82 95 07/11/19 12:00 97.6 F 78 16 114/69 96 07/11/19 07:40 96 07/11/19 07:31 97.9 F 75 18 107/64 94 L Weight Admit Weight 178 lb 7 oz Weight 173 lb 1.6 oz I&O: 07/10/19 07/11/19 07/12/19 06:59 06:59 06:59 Intake Total 885 2040 Output Total 1350 325 Balance -465 1715 Result Diagrams: 07/11/19 05:12 07/11/19 05:12 Hospitalist ROS - Medication Medications: Active Medications Generic Name Dose Route Start Last Admin Trade Name Freq PRN Reason Stop Dose Admin Acetaminophen 650 mg 07/10/19 13:38 07/10/19 13:45 Tylenol PO 650 mg Q6H PRN Administration Pain Al Hydroxide/Mg Hydroxide 60 0 ml 07/08/19 18:44 07/09/19 16:03 ml/ Lidocaine HCl 30 ml/ SSW 10 ml Diphenhydramine HCl 75 mg PRN PRN Administration Mouth Irritation Cyanocobalamin 1,000 mcg 07/10/19 09:00 07/11/19 11:56 Vitamin B-12 PO 1,000 mcg DAILY SUNITA Administration Folic Acid 1 mg 07/10/19 09:00 07/11/19 11:56 Folvite PO 1 mg DAILY SUNITA Administration Morphine Sulfate 2 mg 07/07/19 11:10 07/11/19 11:53 Morphine SLOW IVP 2 mg Q4H PRN Administration Severe Pain (7-10) Nitroglycerin 0.4 mg 07/09/19 20:12 07/11/19 02:55 Nitrostat SL 0.4 mg Q5MIN PRN Administration Chest Pain Pantoprazole Sodium 40 mg 07/09/19 09:00 07/11/19 11:55 Protonix PO 40 mg DAILY SUNITA Administration Polyethylene Glycol 17 gm 07/09/19 09:00 07/11/19 11:55 Miralax PO 17 gm DAILY SUNITA Administration Senna/Docusate Sodium 1 tab 07/09/19 09:00 07/11/19 11:55 Senokot S PO 1 tab BID SUNITA Administration Simethicone 80 mg 07/09/19 23:05 07/10/19 01:30 Mylicon Chewable PO 80 mg PCHS PRN Administration Gas Pain Sodium Biphosphate/Sodium Phosphate 133 ml 07/10/19 19:23 07/11/19 15:18 Fleet Enema UT 133 ml DAILY PRN Administration Constipation Sucralfate 1 gm 07/10/19 21:00 07/11/19 15:20 Carafate PO 1 gm TID SUNITA Administration Tramadol HCl 50 mg 07/09/19 20:10 07/10/19 22:20 Ultram PO 50 mg Q4H PRN Administration Pain - Exam General Appearance: NAD, awake alert Eye: PERRL, anicteric sclera ENT: normocephalic atraumatic, no oropharyngeal lesions Neck: supple, symmetric, no JVD, no thyromegaly Heart: RRR, no murmur, no gallops, no rubs Respiratory: CTAB, no wheezes, no rales, no ronchi Gastrointestinal: soft, non-tender, non-distended, normal bowel sounds Extremities: no cyanosis, no clubbing, no edema Skin: normal turgor, no lesions, no rashes Neurological: cranial nerve grossly intact, normal sensation to touch, no focal deficits, no new deficit Hosp A/P - Plan Soft tissue neck Xray: no foreign body CT abdomen: normal appendix. Fatty liver .Dense colonic fecal retention Chest X ray: no acute diseaes This is a 44 year old male who presented with rectal bleeding, admitted for GI bleed. EGD negative Acute lower GI bleed - seems to have resolved. EGD negative - d/c protonix drip. Per GI no need for colonoscopy Constipation -CT shows dense colonic retention. Continue miralax, senna/colace and enema prn Chest discomfort - likely GERD potentially vs anxiety -EKG negative, trop negative times three. Vitals all appear normal - likely psychological component to this given that his facial expressions don' t match his complaints of pain. However nuclear stress test ordered currently pending #Odynophagia - EGD negative. Continue protonix, tums prn, magic mouthwash for possible GERD - nitro showed no benefit - neck Xray normal. - Patient refused barium swallow yesterday. Agreed to try barium swallow tomorrow if stress test negative. ENT consulted, recommended barium swallow as well - speech consulted Dysuria - repeat UA showing mild leukocyte esterase of 75. Urine culture normal #Obesity #Fatty Liver - outpatient follow up , weight loss #Anemia from Folate Deficiency vs mild B12 deficiency - started on folic acid 1 mg daily. Folate level low - B12 borderline low at 200, check methylmalonic acid. Start B12 supplements empirically Dispo: likely d/c in am pending improvement in ability to eat
[2019-07-13 12:09] LABS: Methylmalonic Acid 361 nmol/L (0-378)
== END 2019-07-11 19:30 | disposition home or self-care (01) | DRG 379 ==
LOC: ERS 03:33 → 2NO 07:54
PROVIDERS: ADMIT Internal Medicine; ATTEND Internal Medicine
PROC: 0DB78ZX Excision of Stomach, Pylorus, Via Natural or Artificial Opening Endoscopic, Diagnostic (ICD-10-PCS; principal; 2019-07-08)
DX: K92.2 Gastrointestinal hemorrhage, unspecified (principal); K21.9 Gastro-esophageal reflux disease without esophagitis; R00.0 Tachycardia, unspecified; R13.10 Dysphagia, unspecified; G31.84 Mild cognitive impairment of uncertain or unknown etiology; E66.9 Obesity, unspecified; K76.0 Fatty (change of) liver, not elsewhere classified; D52.9 Folate deficiency anemia, unspecified; K31.7 Polyp of stomach and duodenum; K59.00 Constipation, unspecified; Z87.11 Personal history of peptic ulcer disease; Z68.28 Body mass index [BMI] 28.0-28.9, adult; R30.0 Dysuria
CPT/HCPCS: 36415; 36416; 70360; 71045; 71046; 71275; 74177; 74220; 74230; 78452; 80048; 80053; 81001; 81003; 82274; 82607; 82728; 82746; 83540; 83550; 83690; 83735; 83921; 84443; 84484; 85025; 85027; 85379; 87086; 88305; 88312; 90471; 90686; 93005; 93010; 93017; 96361; 96374; 96375; A9500; C9113; G0008; J0153; J1885; J2270; J2405; J3010; J3490; Q0163; Q9966

== ENCOUNTER 2019-07-15 09:02 | Emergency (ER) | payer SELFPAY ==
[2019-07-15] MEDS ORDERED: Ketorolac Tromethamine 30 MG/ML VIAL ONE (10:12)
--- NOTE | 2019-07-15 10:15 | RAD ---
Exam: Chest one view HISTORY:Pain Comparison: 07/09/2019 FINDINGS: Lungs: No masses or consolidation. Cardiac silhouette: Normal size Pulmonary vessels: Normal Pleural Spaces: Clear Pneumothorax: None Osseous abnormalities: None of acuity. IMPRESSION: No focal consolidation.
[2019-07-15 10:18] LABS: #Eosinphils 0.3 thou/uL (0.0-0.7); #Lymphocytes 2.1 thou/uL (1.20-3.40); #Monocytes 0.5 thou/uL (0.11-0.59); #Neutrophils 5.2 thou/uL (1.40-6.50); %Basophils 0.4 % (0.0-1.0); %Eosinophils 3.1 % (0.0-10.0); %Lymphocytes 26.2 % (21.0-51.0); %Monocytes 6.3 % (0.0-10.0); Hemoglobin 12.3 g/dL (14.0-18.0); Mean Corpuscular HGB CONC 32.6 g/dL (32.0-36.0); Mean Corpuscular Hemoglobin 28.2 pg (27.0-31.0); Mean Corpuscular Volume 86.4 fL (78.0-98.0); Mean Platelet Volume 9.2 fL (7.4-10.4); Platelet Count 152 thou/uL (130-400); RBC Distribution Width 13.1 % (11.5-14.5); Red Blood Cell (RBC) Count 4.37 mill/uL (4.70-6.10); White Blood Cell (WBC) Count 8.1 thou/uL (4.8-10.8)
[2019-07-15 10:35] LABS: ALT (SGPT) 20 U/L (8-55); AST (SGOT) 22 U/L (5-34); Albumin 3.8 g/dL (3.5-5.0); Alkaline Phosphatase 89 U/L (40-110); Anion Gap 12 mmol/L (10-20); BUN (Urea Nitrogen) 8 mg/dL (8.9-20.6); Bilirubin, Total 0.2 mg/dL (0.2-1.2); Calc. Creatinine Clearance 0 mL/min (70-130); Calcium 8.5 mg/dL (7.8-10.44); Carbon Dioxide 25 mmol/L (22-29); Chloride 107 mmol/L (98-107); Estimated GFR-MDRD 68; Globulin 3.3 g/dL (2.4-3.5); Glucose 114 mg/dL (70-105); Lipase 28 U/L (8-78); Potassium 4.1 mmol/L (3.5-5.1); Protein, Total 7.1 g/dL (6.0-8.3); Sodium 140 mmol/L (136-145)
[2019-07-15] MEDS ORDERED: Morphine 4 MG/ML VIAL ONE (11:00)
--- NOTE | 2019-07-15 11:12 | CT ---
CT Abdomen Pelvis W Con History: Abdominal pain Comparison: CT abdomen and pelvis 2018 Findings: Lung bases are clear. No pericardial effusion. Liver, spleen, pancreas are unremarkable. Normal proximal small bowel rotation. No hydronephrosis. Aortoiliac contour is nonaneurysmal. No dilated loops of large or small bowel. The appendix is visualized and is normal. Mild narrowing of celiac trunk with subtle poststenotic dilatation. Small fat-containing periumbilical hernia. No retroperitoneal periaortic adenopathy. Mild patulous appearance of the left ureter is similar to t he examination from 2018. Impression: No acute inflammatory process within the abdomen or pelvis.
[2019-07-15] MEDS ORDERED: ISOVUE-370 76%-LOCM 1 ML ONE (12:00)
[2019-07-15 12:59] LABS: Bilirubin Negative (Negative); Blood, Urine Negative (Negative); Clarity Clear (Clear); Glucose, Urine (Dipstick) Normal (Negative); Leukocyte Negative Leu/uL (Negative); Nitrite Negative (Negative); Protein, Urine (Dipstick) Negative (Neg-Trace); Urobilinogen Normal mg/dL (Less than 2)
[2019-07-15] MEDS ORDERED: Acetaminophen 500 MG TAB ONE (14:37)
== END 2019-07-15 15:05 | disposition home or self-care (01) ==
LOC: ERS 09:02
DX: R10.11 Right upper quadrant pain (principal)
CPT/HCPCS: 36415; 71045; 74177; 80053; 81003; 83690; 84484; 85025; 93005; 96361; 96374; 96375; J1885; J2270; Q9966

== ENCOUNTER 2019-08-03 03:42 | Emergency (ER) | payer SELFPAY ==
[2019-08-03 04:37] LABS: Bilirubin Negative (Negative); Blood, Urine Negative (Negative); Clarity Clear (Clear); Glucose, Urine (Dipstick) Normal (Negative); Leukocyte Negative Leu/uL (Negative); Nitrite Negative (Negative); Protein, Urine (Dipstick) Negative (Neg-Trace); Urobilinogen Normal mg/dL (Less than 2)
[2019-08-03] MEDS ORDERED: Acetaminophen 500 MG TAB ONE (04:51)
[2019-08-03 04:52] LABS: #Basophils 0.1 thou/uL (0.0-0.2); #Eosinphils 0.2 thou/uL (0.0-0.7); #Lymphocytes 1.7 thou/uL (1.20-3.40); #Monocytes 0.5 thou/uL (0.11-0.59); #Neutrophils 6.1 thou/uL (1.40-6.50); %Basophils 0.7 % (0.0-1.0); %Eosinophils 2.6 % (0.0-10.0); %Lymphocytes 19.8 % (21.0-51.0); %Neutrophils 70.9 % (42.0-75.0); Hemoglobin 12.8 g/dL (14.0-18.0); Mean Corpuscular HGB CONC 32.4 g/dL (32.0-36.0); Mean Corpuscular Hemoglobin 27.4 pg (27.0-31.0); Mean Corpuscular Volume 84.6 fL (78.0-98.0); Platelet Count 137 thou/uL (130-400); RBC Distribution Width 13.4 % (11.5-14.5); Red Blood Cell (RBC) Count 4.68 mill/uL (4.70-6.10); White Blood Cell (WBC) Count 8.6 thou/uL (4.8-10.8)
--- NOTE | 2019-08-03 07:58 | RAD ---
RADIOGRAPH CHEST 1 VIEW: DATE: 08/03/2019 HISTORY: 44-year-old male with chest pain FINDINGS: There are no airspace densities, pulmonary edema, pneumothorax, or cardiomegaly. The lateral costophr enic angles are sharp. IMPRESSION: No acute cardiopulmonary findings.
== END 2019-08-03 05:05 | disposition home or self-care (01) ==
LOC: ERS 03:42
DX: S20.219A Contusion of unspecified front wall of thorax, initial encounter (principal); K62.5 Hemorrhage of anus and rectum; K21.9 Gastro-esophageal reflux disease without esophagitis; V89.2XXA Person injured in unspecified motor-vehicle accident, traffic, initial encounter
CPT/HCPCS: 36415; 71045; 81003; 85025; 93005

== ENCOUNTER 2019-08-09 21:26 | Emergency (ER) | payer SELFPAY ==
[2019-08-09 22:07] LABS: #Eosinphils 0.3 thou/uL (0.0-0.7); #Lymphocytes 1.5 thou/uL (1.20-3.40); #Monocytes 0.5 thou/uL (0.11-0.59); #Neutrophils 6.1 thou/uL (1.40-6.50); %Basophils 0.2 % (0.0-1.0); %Eosinophils 3.1 % (0.0-10.0); %Lymphocytes 18.2 % (21.0-51.0); %Monocytes 5.9 % (0.0-10.0); %Neutrophils 72.7 % (42.0-75.0); Hemoglobin 13.8 g/dL (14.0-18.0); Mean Corpuscular HGB CONC 31.1 g/dL (32.0-36.0); Mean Corpuscular Hemoglobin 27.4 pg (27.0-31.0); Mean Platelet Volume 8.8 fL (7.4-10.4); Platelet Count 147 thou/uL (130-400); RBC Distribution Width 13.8 % (11.5-14.5); Red Blood Cell (RBC) Count 5.04 mill/uL (4.70-6.10); White Blood Cell (WBC) Count 8.4 thou/uL (4.8-10.8)
[2019-08-09 22:43] LABS: ALT (SGPT) 27 U/L (8-55); AST (SGOT) 23 U/L (5-34); Albumin 4.6 g/dL (3.5-5.0); Alkaline Phosphatase 105 U/L (40-110); Anion Gap 14 mmol/L (10-20); BUN (Urea Nitrogen) 11 mg/dL (8.9-20.6); Bilirubin, Total 0.4 mg/dL (0.2-1.2); Calc. Creatinine Clearance 0 mL/min (70-130); Calcium 9.1 mg/dL (7.8-10.44); Carbon Dioxide 31 mmol/L (22-29); Chloride 99 mmol/L (98-107); Estimated GFR-MDRD 48; Globulin 3.5 g/dL (2.4-3.5); Glucose 101 mg/dL (70-105); Lipase 48 U/L (8-78); Potassium 3.6 mmol/L (3.5-5.1); Protein, Total 8.1 g/dL (6.0-8.3); Sodium 140 mmol/L (136-145)
[2019-08-09] MEDS ORDERED: Mag-Al 1200 mg/1200 mg/30 ML UDCUP ONE (22:51)
[2019-08-09] MEDS ORDERED: Lidocaine Viscous Sol 2% 15 ml UD Cup ONE (22:51)
--- NOTE | 2019-08-10 00:11 | RAD ---
RADIOGRAPH CHEST 1 VIEW: DATE: 08/10/2019 HISTORY: 44-year-old male with left-sided chest pain FINDINGS: There are no airspace densities, pulmonary edema, pneumothorax, or cardiomegaly. The lateral costophr enic angles are sharp. IMPRESSION: No acute cardiopulmonary findings.
--- NOTE | 2019-08-10 00:17 | ULT ---
ULTRASOUND ABDOMEN LIMITED: (RIGHT UPPER QUADRANT) DATE: 08/09/2019 11:18 PM HISTORY: 44-year-old male with right upper quadrant abdominal pain. FINDINGS: Gallbladder:Very contracted and therefore difficult to evaluate. Further obscured by shadowing. Common duct: 4 mm. Liver:Echogenicity slightly heterogeneous and increased, questionable for mildly fatty liver. Pancreas:Completely obscured by shadowing from bowel gas. Right kidney:No hydronephrosis. IMPRESSION: Gallbladder contracted and difficult to evaluate.
== END 2019-08-10 00:42 | disposition home or self-care (01) ==
LOC: ERS 21:26
DX: K76.0 Fatty (change of) liver, not elsewhere classified (principal); R07.9 Chest pain, unspecified; K21.9 Gastro-esophageal reflux disease without esophagitis
CPT/HCPCS: 36415; 71045; 76705; 80053; 83690; 84484; 85025; 93005

== ENCOUNTER 2019-08-10 10:36 | Emergency (ER) | payer SELFPAY ==
--- NOTE | 2019-08-10 11:59 | RAD ---
PORTABLE CHEST: HISTORY: Chest pain. FINDINGS: Lungs are clear. Heart and mediastinum unremarkable. Vascular markings normal. IMPRESSION: No acute findings. POS: [facility]
[2019-08-10 12:17] LABS: #Basophils 0.1 thou/uL (0.0-0.2); #Eosinphils 0.3 thou/uL (0.0-0.7); #Monocytes 0.6 thou/uL (0.11-0.59); #Neutrophils 5.4 thou/uL (1.40-6.50); %Basophils 0.7 % (0.0-1.0); %Eosinophils 3.8 % (0.0-10.0); %Lymphocytes 23.6 % (21.0-51.0); %Monocytes 6.8 % (0.0-10.0); %Neutrophils 65.1 % (42.0-75.0); Hemoglobin 12.5 g/dL (14.0-18.0); Mean Corpuscular HGB CONC 32.9 g/dL (32.0-36.0); Mean Corpuscular Hemoglobin 28.1 pg (27.0-31.0); Mean Corpuscular Volume 85.6 fL (78.0-98.0); Mean Platelet Volume 8.7 fL (7.4-10.4); Platelet Count 137 thou/uL (130-400); RBC Distribution Width 13.8 % (11.5-14.5); Red Blood Cell (RBC) Count 4.44 mill/uL (4.70-6.10); White Blood Cell (WBC) Count 8.3 thou/uL (4.8-10.8)
[2019-08-10] MEDS ORDERED: Aspirin Chewable 81 MG TAB ONE (12:26)
[2019-08-10] MEDS ORDERED: Ondansetron ODT 4 MG TAB ONE (12:26)
[2019-08-10] MEDS ORDERED: Lidocaine Viscous Sol 2% 15 ml UD Cup ONE (12:37)
[2019-08-10] MEDS ORDERED: Mag-Al 1200 mg/1200 mg/30 ML UDCUP ONE (12:37)
[2019-08-10 12:45] LABS: ALT (SGPT) 23 U/L (8-55); AST (SGOT) 20 U/L (5-34); Albumin 4.2 g/dL (3.5-5.0); Alkaline Phosphatase 96 U/L (40-110); Anion Gap 13 mmol/L (10-20); BUN (Urea Nitrogen) 10 mg/dL (8.9-20.6); Bilirubin, Total 0.4 mg/dL (0.2-1.2); Calc. Creatinine Clearance 0 mL/min (70-130); Calcium 8.7 mg/dL (7.8-10.44); Carbon Dioxide 26 mmol/L (22-29); Chloride 104 mmol/L (98-107); Estimated GFR-MDRD 66; Globulin 2.9 g/dL (2.4-3.5); Glucose 89 mg/dL (70-105); Potassium 4.1 mmol/L (3.5-5.1); Protein, Total 7.1 g/dL (6.0-8.3); Sodium 139 mmol/L (136-145)
== END 2019-08-10 15:43 | disposition home or self-care (01) ==
LOC: ERS 10:36
DX: R07.2 Precordial pain (principal); K21.9 Gastro-esophageal reflux disease without esophagitis
CPT/HCPCS: 36415; 71045; 80053; 84484; 85025; 85379; 93005; Q0162

== ENCOUNTER 2019-08-12 04:07 | Emergency (ER) | payer SELFPAY | END 2019-08-12 05:40 | disposition home or self-care (01) | LOC: ERS 04:07 | DX: S30.1XXA Contusion of abdominal wall, initial encounter (principal); W19.XXXA Unspecified fall, initial encounter | CPT/HCPCS: 99283 ==

== ENCOUNTER 2019-08-16 03:04 | Emergency (ER) | payer SELFPAY ==
[2019-08-16] MEDS ORDERED: Ketorolac Tromethamine 30 MG/ML VIAL ONE (03:52)
[2019-08-16 03:59] LABS: #Eosinphils 0.3 thou/uL (0.0-0.7); #Lymphocytes 1.6 thou/uL (1.20-3.40); #Monocytes 0.5 thou/uL (0.11-0.59); #Neutrophils 5.3 thou/uL (1.40-6.50); %Basophils 0.3 % (0.0-1.0); %Eosinophils 3.6 % (0.0-10.0); %Lymphocytes 20.7 % (21.0-51.0); %Monocytes 6.2 % (0.0-10.0); %Neutrophils 69.2 % (42.0-75.0); Hemoglobin 12.9 g/dL (14.0-18.0); Mean Corpuscular HGB CONC 33.5 g/dL (32.0-36.0); Mean Corpuscular Hemoglobin 29.2 pg (27.0-31.0); Mean Corpuscular Volume 87.2 fL (78.0-98.0); Mean Platelet Volume 9.3 fL (7.4-10.4); Platelet Count 147 thou/uL (130-400); RBC Distribution Width 13.7 % (11.5-14.5); Red Blood Cell (RBC) Count 4.41 mill/uL (4.70-6.10); White Blood Cell (WBC) Count 7.7 thou/uL (4.8-10.8)
[2019-08-16 04:19] LABS: ALT (SGPT) 24 U/L (8-55); AST (SGOT) 24 U/L (5-34); Albumin 4.4 g/dL (3.5-5.0); Alkaline Phosphatase 102 U/L (40-110); Anion Gap 14 mmol/L (10-20); BUN (Urea Nitrogen) 15 mg/dL (8.9-20.6); Bilirubin, Total 0.4 mg/dL (0.2-1.2); Calc. Creatinine Clearance 0 mL/min (70-130); Calcium 9.1 mg/dL (7.8-10.44); Carbon Dioxide 24 mmol/L (22-29); Chloride 104 mmol/L (98-107); Estimated GFR-MDRD 71; Glucose 99 mg/dL (70-105); Potassium 4.7 mmol/L (3.5-5.1); Protein, Total 7.4 g/dL (6.0-8.3); Sodium 137 mmol/L (136-145)
[2019-08-16] MEDS ORDERED: Aspirin Chewable 81 MG TAB ONE ×2 (04:41→04:42)
--- NOTE | 2019-08-16 07:56 | RAD ---
Portable frontal chest radiograph: 08/16/2019 COMPARISON: 08/10/2019 HISTORY: Chest pain and left-sided neck pain FINDINGS: Lungs are clear. Heart and mediastinal contours appear within normal limits. IMPRESSION: No acute findings.
== END 2019-08-16 05:57 | disposition home or self-care (01) ==
LOC: ERS 03:04
DX: R07.9 Chest pain, unspecified (principal)
CPT/HCPCS: 36415; 71045; 80053; 84484; 85025; 93005; 94760; 96372; J1885

== ENCOUNTER 2019-09-01 01:33 | Emergency (ER) | payer OTHER, SELFPAY ==
[2019-09-01] MEDS ORDERED: Acetaminophen 500 MG TAB ONE (02:09)
--- NOTE | 2019-09-04 14:07 | EKG ---
Test Reason : Blood Pressure : / mmHG Vent. Rate : 078 BPM Atrial Rate : 078 BPM P-R Int : 174 ms QRS Dur : 088 ms QT Int : 386 ms P-R-T Axes : 070 069 075 degrees QTc Int : 440 ms Normal sinus rhythm Minimal voltage criteria for LVH, may be normal variant Borderline ECG Confirmed by AYAKA DELGADO ([id number]), dictionary editor TEJINDER PATEL ([id number]) on 09/04/2019 2:07:05 PM Referred By: Confirmed By:AYAKA DELGADO
== END 2019-09-01 03:00 | disposition home or self-care (01) ==
LOC: ERS 01:33
DX: M79.602 Pain in left arm (principal); G89.29 Other chronic pain
CPT/HCPCS: 93005

== ENCOUNTER 2019-09-16 03:17 | Emergency (ER) | payer SELFPAY ==
[2019-09-16] MEDS ORDERED: Lidocaine Viscous Sol 2% 15 ml UD Cup ONE (03:45)
[2019-09-16] MEDS ORDERED: Mag-Al 1200 mg/1200 mg/30 ML UDCUP ONE (03:45)
== END 2019-09-16 03:40 | disposition home or self-care (01) ==
LOC: ERS 03:17
DX: R10.13 Epigastric pain (principal)
CPT/HCPCS: 93005

== ENCOUNTER 2019-09-25 11:57 | Emergency (ER) | payer SELFPAY ==
[2019-09-25 12:27] LABS: #Eosinphils 0.2 thou/uL (0.0-0.7); #Lymphocytes 1.6 thou/uL (1.20-3.40); #Monocytes 0.6 thou/uL (0.11-0.59); #Neutrophils 6.2 thou/uL (1.40-6.50); %Basophils 0.5 % (0.0-1.0); %Eosinophils 2.2 % (0.0-10.0); %Lymphocytes 18.4 % (21.0-51.0); %Monocytes 6.8 % (0.0-10.0); %Neutrophils 72.1 % (42.0-75.0); Hemoglobin 13.6 g/dL (14.0-18.0); Mean Corpuscular HGB CONC 31.7 g/dL (32.0-36.0); Mean Corpuscular Hemoglobin 27.3 pg (27.0-31.0); Mean Platelet Volume 9.5 fL (7.4-10.4); Platelet Count 149 thou/uL (130-400); RBC Distribution Width 13.7 % (11.5-14.5); Red Blood Cell (RBC) Count 4.99 mill/uL (4.70-6.10); White Blood Cell (WBC) Count 8.5 thou/uL (4.8-10.8)
[2019-09-25 12:46] LABS: ALT (SGPT) 20 U/L (8-55); AST (SGOT) 24 U/L (5-34); Albumin 4.4 g/dL (3.5-5.0); Alkaline Phosphatase 106 U/L (40-110); Anion Gap 12 mmol/L (10-20); BUN (Urea Nitrogen) 11 mg/dL (8.9-20.6); Bilirubin, Total 0.4 mg/dL (0.2-1.2); Calc. Creatinine Clearance 0 mL/min (70-130); Calcium 8.9 mg/dL (7.8-10.44); Carbon Dioxide 24 mmol/L (22-29); Chloride 104 mmol/L (98-107); Estimated GFR-MDRD 62; Globulin 3.7 g/dL (2.4-3.5); Glucose 91 mg/dL (70-105); Lipase 32 U/L (8-78); Potassium 4.4 mmol/L (3.5-5.1); Protein, Total 8.1 g/dL (6.0-8.3); Sodium 136 mmol/L (136-145)
[2019-09-25] MEDS ORDERED: Morphine 4 MG/ML VIAL ONE (14:21)
[2019-09-25] MEDS ORDERED: Ketorolac Tromethamine 60 MG/2 ML VIAL ONE (14:22)
[2019-09-25] MEDS ORDERED: Ondansetron ODT 4 MG TAB ONE (14:22)
--- NOTE | 2019-09-29 11:11 | EKG ---
Test Reason : Blood Pressure : / mmHG Vent. Rate : 078 BPM Atrial Rate : 078 BPM P-R Int : 164 ms QRS Dur : 082 ms QT Int : 384 ms P-R-T Axes : 070 058 111 degrees QTc Int : 437 ms Undetermined rhythm Nonspecific ST and T wave abnormality Abnormal ECG Confirmed by DAMION DIAZ ([id number]), editor sound TEJINDER PATEL ([id number]) on 09/29/2019 11:11:06 AM Referred By: Confirmed By:DAMION DIAZ
== END 2019-09-25 15:43 | disposition home or self-care (01) ==
LOC: ERS 11:57
DX: R10.31 Right lower quadrant pain (principal)
CPT/HCPCS: 36415; 80053; 82274; 83690; 85025; 93005; 96372; J1885; J2270; Q0162

== ENCOUNTER 2019-09-28 13:50 | Emergency (ER) | payer SELFPAY | END 2019-09-28 15:37 | disposition left against medical advice (07) | LOC: ERS 13:50 | DX: Z53.21 Procedure and treatment not carried out due to patient leaving prior to being seen by health care provider (principal) ==

== ENCOUNTER 2019-10-03 11:05 | Emergency (ER) | payer SELFPAY ==
--- NOTE | 2019-10-03 11:43 | RAD ---
PORTABLE CHEST: Date: 10/03/2019 HISTORY: Chest pain. FINDINGS: Lung mcmullen are clear of infiltrate. Heart and mediastinum unremarkable. Vasculature normal. IMPRESSION: No acute findings. POS: [facility]
[2019-10-03 12:01] LABS: #Eosinphils 0.2 thou/uL (0.0-0.7); #Lymphocytes 1.7 thou/uL (1.20-3.40); #Monocytes 0.4 thou/uL (0.11-0.59); #Neutrophils 5.6 thou/uL (1.40-6.50); %Basophils 0.6 % (0.0-1.0); %Eosinophils 3.1 % (0.0-10.0); %Lymphocytes 20.9 % (21.0-51.0); %Monocytes 5.5 % (0.0-10.0); %Neutrophils 69.9 % (42.0-75.0); Mean Corpuscular HGB CONC 32.3 g/dL (32.0-36.0); Mean Corpuscular Hemoglobin 27.8 pg (27.0-31.0); Mean Corpuscular Volume 86.2 fL (78.0-98.0); Mean Platelet Volume 9.1 fL (7.4-10.4); Platelet Count 153 thou/uL (130-400); RBC Distribution Width 13.8 % (11.5-14.5); Red Blood Cell (RBC) Count 4.66 mill/uL (4.70-6.10)
[2019-10-03 12:09] LABS: Prothrombin Time 12.8 SEC (12.0-14.7)
[2019-10-03 12:29] LABS: ALT (SGPT) 20 U/L (8-55); AST (SGOT) 22 U/L (5-34); Albumin 4.4 g/dL (3.5-5.0); Alkaline Phosphatase 97 U/L (40-110); Anion Gap 15 mmol/L (10-20); BUN (Urea Nitrogen) 15 mg/dL (8.9-20.6); Bilirubin, Total 0.3 mg/dL (0.2-1.2); Calc. Creatinine Clearance 0 mL/min (70-130); Calcium 9.1 mg/dL (7.8-10.44); Carbon Dioxide 25 mmol/L (22-29); Chloride 105 mmol/L (98-107); Estimated GFR-MDRD 59; Globulin 3.4 g/dL (2.4-3.5); Glucose 114 mg/dL (70-105); Lipase 32 U/L (8-78); Potassium 4.5 mmol/L (3.5-5.1); Protein, Total 7.8 g/dL (6.0-8.3); Sodium 140 mmol/L (136-145)
[2019-10-03] MEDS ORDERED: Lidocaine Viscous Sol 2% 15 ml UD Cup ONE (12:40)
[2019-10-03] MEDS ORDERED: Mag-Al 1200 mg/1200 mg/30 ML UDCUP ONE (12:40)
[2019-10-03] MEDS ORDERED: Pantoprazole 40 MG VIAL ONE (12:40)
== END 2019-10-03 13:30 | disposition home or self-care (01) ==
LOC: ERS 11:05
DX: R07.89 Other chest pain (principal); K92.2 Gastrointestinal hemorrhage, unspecified
CPT/HCPCS: 71045; 80053; 83690; 84484; 85025; 85610; 85730; 93005; 94760; 96374; C9113

== ENCOUNTER 2019-10-13 15:38 | Emergency (ER) | payer SELFPAY ==
[2019-10-13 16:13] LABS: #Eosinphils 0.3 thou/uL (0.0-0.7); #Lymphocytes 1.4 thou/uL (1.20-3.40); #Monocytes 0.6 thou/uL (0.11-0.59); #Neutrophils 5.6 thou/uL (1.40-6.50); %Basophils 0.5 % (0.0-1.0); %Eosinophils 3.2 % (0.0-10.0); %Monocytes 6.9 % (0.0-10.0); %Neutrophils 71.4 % (42.0-75.0); Hemoglobin 12.3 g/dL (14.0-18.0); Mean Corpuscular HGB CONC 31.4 g/dL (32.0-36.0); Mean Corpuscular Hemoglobin 27.5 pg (27.0-31.0); Mean Corpuscular Volume 87.6 fL (78.0-98.0); Mean Platelet Volume 9.2 fL (7.4-10.4); Platelet Count 153 thou/uL (130-400); RBC Distribution Width 14.1 % (11.5-14.5); Red Blood Cell (RBC) Count 4.46 mill/uL (4.70-6.10); White Blood Cell (WBC) Count 7.9 thou/uL (4.8-10.8)
[2019-10-13 16:35] LABS: ALT (SGPT) 19 U/L (8-55); AST (SGOT) 22 U/L (5-34); Albumin 4.4 g/dL (3.5-5.0); Alkaline Phosphatase 94 U/L (40-110); Anion Gap 12 mmol/L (10-20); BUN (Urea Nitrogen) 16 mg/dL (8.9-20.6); Bilirubin, Total 0.5 mg/dL (0.2-1.2); Calc. Creatinine Clearance 0 mL/min (70-130); Calcium 8.7 mg/dL (7.8-10.44); Carbon Dioxide 27 mmol/L (22-29); Chloride 104 mmol/L (98-107); Estimated GFR-MDRD 56; Glucose 85 mg/dL (70-105); Potassium 4.3 mmol/L (3.5-5.1); Protein, Total 7.4 g/dL (6.0-8.3); Sodium 139 mmol/L (136-145)
--- NOTE | 2019-10-13 17:23 | RAD ---
EXAM: CHEST ONE VIEW PORTABLE: 10/13/19 HISTORY: Chest pain for two hours. FINDINGS: Less than optimal inspiration. Heart size within normal limits. Mild increased vascular markings bila terally probably related to inspiration. IMPRESSION: No evidence of pneumonia. Decreased inspiration. No significant other new process. POS: [facility]
== END 2019-10-13 17:14 | disposition home or self-care (01) ==
LOC: ERS 15:38
DX: F43.9 Reaction to severe stress, unspecified (principal); R07.9 Chest pain, unspecified; Z79.899 Other long term (current) drug therapy
CPT/HCPCS: 36415; 71045; 80053; 83605; 84484; 85025; 93005; 94760; 96360

== ENCOUNTER 2019-10-27 03:44 | Emergency (ER) | payer SELFPAY | END 2019-10-27 04:10 | disposition left against medical advice (07) | LOC: ERS 03:44 | DX: Z53.21 Procedure and treatment not carried out due to patient leaving prior to being seen by health care provider (principal) | CPT/HCPCS: 93005 ==

== ENCOUNTER 2019-10-27 14:50 | Emergency (ER) | payer SELFPAY ==
[2019-10-27 15:30] LABS: #Basophils 0.1 thou/uL (0.0-0.2); #Eosinphils 0.2 thou/uL (0.0-0.7); #Lymphocytes 1.4 thou/uL (1.20-3.40); #Monocytes 0.4 thou/uL (0.11-0.59); #Neutrophils 5.2 thou/uL (1.40-6.50); %Basophils 0.9 % (0.0-1.0); %Eosinophils 2.4 % (0.0-10.0); %Lymphocytes 19.4 % (21.0-51.0); %Monocytes 5.8 % (0.0-10.0); %Neutrophils 71.5 % (42.0-75.0); Hemoglobin 13.1 g/dL (14.0-18.0); Mean Corpuscular HGB CONC 32.6 g/dL (32.0-36.0); Mean Platelet Volume 9.3 fL (7.4-10.4); Platelet Count 135 thou/uL (130-400); RBC Distribution Width 14.1 % (11.5-14.5); Red Blood Cell (RBC) Count 4.51 mill/uL (4.70-6.10); White Blood Cell (WBC) Count 7.3 thou/uL (4.8-10.8)
--- NOTE | 2019-10-27 15:43 | RAD ---
Portable frontal chest radiograph: 10/27/2019 COMPARISON: 10/13/2019 HISTORY: Chest pain FINDINGS: Lungs are clear. Heart and mediastinal contours appear within normal limits. IMPRESSION: No acute findings.
[2019-10-27 15:52] LABS: ALT (SGPT) 19 U/L (8-55); AST (SGOT) 21 U/L (5-34); Albumin 4.4 g/dL (3.5-5.0); Alkaline Phosphatase 93 U/L (40-110); Anion Gap 14 mmol/L (10-20); BUN (Urea Nitrogen) 12 mg/dL (8.9-20.6); Bilirubin, Total 0.4 mg/dL (0.2-1.2); Calc. Creatinine Clearance 0 mL/min (70-130); Calcium 9.2 mg/dL (7.8-10.44); Carbon Dioxide 24 mmol/L (22-29); Chloride 104 mmol/L (98-107); Estimated GFR-MDRD 62; Globulin 3.4 g/dL (2.4-3.5); Glucose 115 mg/dL (70-105); Potassium 4.2 mmol/L (3.5-5.1); Protein, Total 7.8 g/dL (6.0-8.3); Sodium 138 mmol/L (136-145)
[2019-10-27] MEDS ORDERED: Aspirin Chewable 81 MG TAB ONE ×4 (17:47→17:48)
[2019-10-27] MEDS ORDERED: Acetaminophen 500 MG TAB ONE ×2 (17:48)
== END 2019-10-27 17:57 | disposition home or self-care (01) ==
LOC: ERS 14:50
DX: R07.9 Chest pain, unspecified (principal); K92.1 Melena; Z79.899 Other long term (current) drug therapy
CPT/HCPCS: 36415; 71045; 80053; 84484; 85025; 93005

== ENCOUNTER 2019-11-02 04:03 | Emergency (ER) | payer SELFPAY ==
[2019-11-02] MEDS ORDERED: Mag-Al 1200 mg/1200 mg/30 ML UDCUP ONE (04:15)
[2019-11-02] MEDS ORDERED: Lidocaine Viscous Sol 2% 15 ml UD Cup ONE (04:15)
== END 2019-11-02 04:19 | disposition home or self-care (01) ==
LOC: ERS 04:03
DX: G89.29 Other chronic pain (principal); R10.12 Left upper quadrant pain
CPT/HCPCS: 99281

== ENCOUNTER 2019-11-02 12:27 | Emergency (ER) | payer SELFPAY | END 2019-11-02 14:07 | disposition home or self-care (01) | LOC: ERS 12:27 | DX: R07.89 Other chest pain (principal); Z79.899 Other long term (current) drug therapy; W06.XXXA Fall from bed, initial encounter | CPT/HCPCS: 99281 ==

== ENCOUNTER 2019-11-09 11:50 | Emergency (ER) | payer SELFPAY ==
[2019-11-09] MEDS ORDERED: Lidocaine Viscous Sol 2% 15 ml UD Cup ONE (14:19)
[2019-11-09] MEDS ORDERED: Mag-Al 1200 mg/1200 mg/30 ML UDCUP ONE (14:19)
[2019-11-09 14:32] LABS: Bacteria/HPF None Seen HPF (None Seen); Bilirubin Negative (Negative); Blood, Urine Negative (Negative); Clarity Clear (Clear); Glucose, Urine (Dipstick) Normal (Negative); Leukocyte 75 Leu/uL (Negative); Nitrite Negative (Negative); Protein, Urine (Dipstick) Negative (Neg-Trace); RBC/HPF None Seen HPF (0-3); Squamous Epithelial None Seen HPF (0-3); Urobilinogen Normal mg/dL (Less than 2); WBC/HPF 0-3 HPF (0-3)
[2019-11-09 14:49] LABS: #Eosinphils 0.2 thou/uL (0.0-0.7); #Lymphocytes 1.5 thou/uL (1.20-3.40); #Monocytes 0.6 thou/uL (0.11-0.59); %Basophils 0.5 % (0.0-1.0); %Eosinophils 2.2 % (0.0-10.0); %Lymphocytes 15.7 % (21.0-51.0); %Monocytes 6.8 % (0.0-10.0); %Neutrophils 74.9 % (42.0-75.0); Hemoglobin 12.5 g/dL (14.0-18.0); Mean Corpuscular HGB CONC 33.5 g/dL (32.0-36.0); Mean Corpuscular Hemoglobin 29.4 pg (27.0-31.0); Mean Corpuscular Volume 87.6 fL (78.0-98.0); Mean Platelet Volume 9.5 fL (7.4-10.4); Platelet Count 140 thou/uL (130-400); RBC Distribution Width 13.7 % (11.5-14.5); Red Blood Cell (RBC) Count 4.24 mill/uL (4.70-6.10); White Blood Cell (WBC) Count 9.3 thou/uL (4.8-10.8)
[2019-11-09 15:15] LABS: ALT (SGPT) 29 U/L (8-55); AST (SGOT) 25 U/L (5-34); Albumin 4.1 g/dL (3.5-5.0); Alkaline Phosphatase 100 U/L (40-110); Anion Gap 17 mmol/L (10-20); BUN (Urea Nitrogen) 15 mg/dL (8.9-20.6); Bilirubin, Total 0.3 mg/dL (0.2-1.2); Calc. Creatinine Clearance 0 mL/min (70-130); Calcium 9.3 mg/dL (7.8-10.44); Carbon Dioxide 23 mmol/L (22-29); Chloride 103 mmol/L (98-107); Estimated GFR-MDRD 63; Globulin 3.4 g/dL (2.4-3.5); Glucose 103 mg/dL (70-105); Lipase 32 U/L (8-78); Potassium 4.5 mmol/L (3.5-5.1); Protein, Total 7.5 g/dL (6.0-8.3); Sodium 138 mmol/L (136-145)
== END 2019-11-09 16:58 | disposition home or self-care (01) ==
LOC: ERS 11:50
DX: R10.9 Unspecified abdominal pain (principal)
CPT/HCPCS: 36415; 80053; 81003; 81015; 83690; 85025; 93005

== ENCOUNTER 2019-11-14 16:27 | Emergency (ER) | payer SELFPAY | END 2019-11-14 17:22 | disposition left against medical advice (07) | LOC: ERS 16:27 | DX: Z53.21 Procedure and treatment not carried out due to patient leaving prior to being seen by health care provider (principal) ==

== ENCOUNTER 2020-01-11 20:55 | Emergency (ER) | payer SELFPAY ==
[2020-01-11 22:07] LABS: #Eosinphils 0.2 thou/uL (0.0-0.7); #Lymphocytes 1.4 thou/uL (1.20-3.40); #Monocytes 0.6 thou/uL (0.11-0.59); #Neutrophils 5.2 thou/uL (1.40-6.50); %Basophils 0.4 % (0.0-1.0); %Eosinophils 3.2 % (0.0-10.0); %Monocytes 8.5 % (0.0-10.0); %Neutrophils 68.9 % (42.0-75.0); Hemoglobin 12.9 g/dL (14.0-18.0); Mean Corpuscular HGB CONC 30.9 g/dL (32.0-36.0); Mean Corpuscular Hemoglobin 27.4 pg (27.0-31.0); Mean Corpuscular Volume 88.5 fL (78.0-98.0); Mean Platelet Volume 9.4 fL (7.4-10.4); Platelet Count 148 thou/uL (130-400); RBC Distribution Width 13.5 % (11.5-14.5); Red Blood Cell (RBC) Count 4.71 mill/uL (4.70-6.10); White Blood Cell (WBC) Count 7.5 thou/uL (4.8-10.8)
[2020-01-11 22:31] LABS: ALT (SGPT) 24 U/L (8-55); AST (SGOT) 23 U/L (5-34); Albumin 4.3 g/dL (3.5-5.0); Alkaline Phosphatase 94 U/L (40-110); Anion Gap 14 mmol/L (10-20); BUN (Urea Nitrogen) 14 mg/dL (8.9-20.6); Bilirubin, Total 0.5 mg/dL (0.2-1.2); Calc. Creatinine Clearance 0 mL/min (70-130); Calcium 8.9 mg/dL (7.8-10.44); Carbon Dioxide 28 mmol/L (22-29); Chloride 102 mmol/L (98-107); Estimated GFR-MDRD 57; Globulin 3.4 g/dL (2.4-3.5); Glucose 86 mg/dL (70-105); Lipase 41 U/L (8-78); Potassium 3.8 mmol/L (3.5-5.1); Protein, Total 7.7 g/dL (6.0-8.3); Sodium 140 mmol/L (136-145)
[2020-01-11] MEDS ORDERED: Ondansetron ODT 4 MG TAB ONE (22:51)
[2020-01-11] MEDS ORDERED: Ketorolac Tromethamine 30 MG/ML VIAL ONE (22:51)
== END 2020-01-11 23:00 | disposition home or self-care (01) ==
LOC: ERS 20:55
DX: R10.9 Unspecified abdominal pain (principal); R11.0 Nausea; K21.9 Gastro-esophageal reflux disease without esophagitis
CPT/HCPCS: 36415; 80053; 83605; 83690; 85025; 99284; J1885; Q0162

== ENCOUNTER 2020-01-24 22:00 | Emergency (ER) | payer SELFPAY ==
[2020-01-24 22:26] LABS: Bacteria/HPF None Seen HPF (None Seen); Bilirubin Negative (Negative); Blood, Urine Negative (Negative); Clarity Clear (Clear); Glucose, Urine (Dipstick) Normal (Negative); Leukocyte 75 Leu/uL (Negative); Nitrite Negative (Negative); Protein, Urine (Dipstick) Negative (Neg-Trace); RBC/HPF 0-3 HPF (0-3); Squamous Epithelial 0-3 HPF (0-3); Urobilinogen Normal mg/dL (Less than 2); WBC/HPF 0-3 HPF (0-3)
[2020-01-24 22:51] LABS: #Eosinphils 0.2 thou/uL (0.0-0.7); #Lymphocytes 1.4 thou/uL (1.20-3.40); #Monocytes 0.6 thou/uL (0.11-0.59); #Neutrophils 6.6 thou/uL (1.40-6.50); %Basophils 0.4 % (0.0-1.0); %Eosinophils 2.4 % (0.0-10.0); %Lymphocytes 15.9 % (21.0-51.0); %Monocytes 6.6 % (0.0-10.0); %Neutrophils 74.7 % (42.0-75.0); Hemoglobin 12.7 g/dL (14.0-18.0); Mean Corpuscular HGB CONC 32.9 g/dL (32.0-36.0); Mean Corpuscular Hemoglobin 28.8 pg (27.0-31.0); Mean Corpuscular Volume 87.6 fL (78.0-98.0); Mean Platelet Volume 9.6 fL (7.4-10.4); Platelet Count 160 thou/uL (130-400); RBC Distribution Width 13.6 % (11.5-14.5); Red Blood Cell (RBC) Count 4.42 mill/uL (4.70-6.10); White Blood Cell (WBC) Count 8.8 thou/uL (4.8-10.8)
[2020-01-24 22:57] LABS: INR-International Normal Ratio 0.9; PTT 28.6 SEC (22.9-36.1); Prothrombin Time 12.2 sec (12.0-14.7)
[2020-01-24 23:17] LABS: ALT (SGPT) 25 U/L (8-55); AST (SGOT) 21 U/L (5-34); Albumin 4.3 g/dL (3.5-5.0); Alkaline Phosphatase 112 U/L (40-110); Anion Gap 14 mmol/L (10-20); BUN (Urea Nitrogen) 10 mg/dL (8.9-20.6); Bilirubin, Total 0.3 mg/dL (0.2-1.2); Calc. Creatinine Clearance 0 mL/min (70-130); Calcium 9.3 mg/dL (7.8-10.44); Carbon Dioxide 26 mmol/L (22-29); Chloride 103 mmol/L (98-107); Estimated GFR-MDRD 59; Globulin 3.3 g/dL (2.4-3.5); Glucose 99 mg/dL (70-105); Potassium 3.9 mmol/L (3.5-5.1); Protein, Total 7.6 g/dL (6.0-8.3); Sodium 139 mmol/L (136-145)
== END 2020-01-24 23:07 | disposition home or self-care (01) ==
LOC: ERS 22:00
DX: K62.5 Hemorrhage of anus and rectum (principal); K21.9 Gastro-esophageal reflux disease without esophagitis
CPT/HCPCS: 36415; 80053; 81003; 81015; 85025; 85610; 85730; 99284

== ENCOUNTER 2020-02-22 16:20 | Emergency (ER) | payer SELFPAY ==
[2020-02-22 17:00] LABS: #Lymphocytes 0.7 thou/uL (1.20-3.40); #Monocytes 0.4 thou/uL (0.11-0.59); #Neutrophils 3.7 thou/uL (1.40-6.50); %Eosinophils 0.9 % (0.0-10.0); %Lymphocytes 13.8 % (21.0-51.0); %Monocytes 8.8 % (0.0-10.0); %Neutrophils 76.4 % (42.0-75.0); Hemoglobin 12.1 g/dL (14.0-18.0); Mean Corpuscular Hemoglobin 26.2 pg (27.0-31.0); Mean Corpuscular Volume 84.4 fL (78.0-98.0); Mean Platelet Volume 10.2 fL (7.4-10.4); Platelet Count 127 thou/uL (130-400); RBC Distribution Width 13.8 % (11.5-14.5); Red Blood Cell (RBC) Count 4.64 mill/uL (4.70-6.10); White Blood Cell (WBC) Count 4.8 thou/uL (4.8-10.8)
[2020-02-22 17:45] LABS: ALT (SGPT) 27 U/L (8-55); AST (SGOT) 34 U/L (5-34); Albumin 4.2 g/dL (3.5-5.0); Alkaline Phosphatase 106 U/L (40-110); Anion Gap 15 mmol/L (10-20); BUN (Urea Nitrogen) 11 mg/dL (8.9-20.6); Bilirubin, Total 0.4 mg/dL (0.2-1.2); Calc. Creatinine Clearance 0 mL/min (70-130); Calcium 8.3 mg/dL (7.8-10.44); Carbon Dioxide 24 mmol/L (22-29); Chloride 103 mmol/L (98-107); Estimated GFR-MDRD 62; Glucose 133 mg/dL (70-105); Lipase 37 U/L (8-78); Potassium 4.8 mmol/L (3.5-5.1); Protein, Total 8.2 g/dL (6.0-8.3); Sodium 137 mmol/L (136-145)
== END 2020-02-22 18:05 | disposition home or self-care (01) ==
LOC: ERS 16:20
DX: R10.11 Right upper quadrant pain (principal); R10.31 Right lower quadrant pain; K21.9 Gastro-esophageal reflux disease without esophagitis
CPT/HCPCS: 80053; 83690; 85025; 99284

== ENCOUNTER 2020-08-21 09:48 | Emergency (ER) | payer SELFPAY ==
[2020-08-21] MEDS ORDERED: Naproxen 500 MG TAB ONE (11:22)
--- NOTE | 2020-08-21 11:40 | ULT ---
VENOUS DOPPLER ULTRASOUND OF THE LEFT LOWER EXTREMITY: HISTORY: Left lower extremity pain. TECHNIQUE: Byrd scale ultrasound with color flow and spectral Doppler imaging of the deep venous system of the l eft lower extremity was performed. FINDINGS: There is good flow, compression, and augmentation noted in the left common femoral, femoral, deep fem oral, popliteal, posterior tibial, and greater saphenous veins. IMPRESSION: No evidence of deep vein thrombosis in the left lower extremity. POS: [facility]
== END 2020-08-21 11:35 | disposition home or self-care (01) ==
LOC: ERS 09:48
DX: M79.662 Pain in left lower leg (principal); K21.9 Gastro-esophageal reflux disease without esophagitis

== ENCOUNTER 2020-09-07 03:49 | Emergency (ER) | payer SELFPAY | END 2020-09-07 05:19 | disposition left against medical advice (07) | LOC: ERS 03:49 | DX: Z53.21 Procedure and treatment not carried out due to patient leaving prior to being seen by health care provider (principal) | CPT/HCPCS: 93005; 94760 ==

== ENCOUNTER 2020-09-19 03:11 | Emergency (ER) | payer SELFPAY ==
[2020-09-19] MEDS ORDERED: Mag-Al 1200 mg/1200 mg/30 ML UDCUP ONE (03:31)
[2020-09-19] MEDS ORDERED: Lidocaine Viscous Sol 2% 15 ml UD Cup ONE (03:31)
[2020-09-19 04:08] LABS: #Eosinphils 0.3 thou/uL (0.0-0.7); #Lymphocytes 1.5 thou/uL (1.20-3.40); #Monocytes 0.6 thou/uL (0.11-0.59); #Neutrophils 6.8 thou/uL (1.40-6.50); %Basophils 0.3 % (0.0-1.0); %Eosinophils 2.8 % (0.0-10.0); %Lymphocytes 16.7 % (21.0-51.0); %Monocytes 6.2 % (0.0-10.0); Hemoglobin 12.2 g/dL (14.0-18.0); Mean Corpuscular HGB CONC 31.7 g/dL (32.0-36.0); Mean Corpuscular Hemoglobin 26.5 pg (27.0-31.0); Mean Corpuscular Volume 83.5 fL (78.0-98.0); Mean Platelet Volume 9.3 fL (7.4-10.4); Platelet Count 168 thou/uL (130-400); RBC Distribution Width 14.5 % (11.5-14.5); White Blood Cell (WBC) Count 9.1 thou/uL (4.8-10.8)
[2020-09-19 04:31] LABS: ALT (SGPT) 26 U/L (8-55); AST (SGOT) 24 U/L (5-34); Albumin 4.1 g/dL (3.5-5.0); Alkaline Phosphatase 117 U/L (40-110); Anion Gap 14 mmol/L (10-20); BUN (Urea Nitrogen) 13 mg/dL (8.9-20.6); Bilirubin, Total 0.2 mg/dL (0.2-1.2); Calc. Creatinine Clearance 0 mL/min (70-130); Calcium 8.7 mg/dL (7.8-10.44); Carbon Dioxide 28 mmol/L (22-29); Chloride 102 mmol/L (98-107); Globulin 3.6 g/dL (2.4-3.5); Glucose 140 mg/dL (70-105); Potassium 4.1 mmol/L (3.5-5.1); Protein, Total 7.7 g/dL (6.0-8.3); Sodium 140 mmol/L (136-145)
[2020-09-19 07:29] LABS: Troponin I Less than 0.010 ng/mL (< 0.028)
--- NOTE | 2020-09-19 07:58 | RAD ---
XR Chest 1 View Portable HISTORY: Chest pain COMPARISON: 11/07/2019 FINDINGS: The heart size is normal. The lungs are well expanded without focal areas of consolidation, pneumothorax or pleural effusions. IMPRESSION: No radiographic evidence of acute cardiopulmonary process.
== END 2020-09-19 07:49 | disposition home or self-care (01) ==
LOC: ERS 03:11
DX: R07.9 Chest pain, unspecified (principal); K21.9 Gastro-esophageal reflux disease without esophagitis
CPT/HCPCS: 36415; 71045; 80053; 84484; 85025; 93005

== ENCOUNTER 2020-11-20 04:37 | Emergency (ER) | payer SELFPAY ==
[2020-11-20] MEDS ORDERED: Ondansetron PF 4 MG/2 ML Vial ONE (05:18)
[2020-11-20 05:34] LABS: #Eosinphils 0.3 thou/uL (0.0-0.7); #Lymphocytes 1.8 thou/uL (1.20-3.40); #Monocytes 0.6 thou/uL (0.11-0.59); #Neutrophils 5.5 thou/uL (1.40-6.50); %Basophils 0.5 % (0.0-1.0); %Eosinophils 3.5 % (0.0-10.0); %Monocytes 7.3 % (0.0-10.0); %Neutrophils 66.8 % (42.0-75.0); Hemoglobin 11.8 g/dL (14.0-18.0); Mean Corpuscular HGB CONC 33.4 g/dL (32.0-36.0); Mean Corpuscular Hemoglobin 28.4 pg (27.0-31.0); Mean Platelet Volume 9.1 fL (7.4-10.4); Platelet Count 146 thou/uL (130-400); RBC Distribution Width 14.4 % (11.5-14.5); Red Blood Cell (RBC) Count 4.17 mill/uL (4.70-6.10); White Blood Cell (WBC) Count 8.2 thou/uL (4.8-10.8)
[2020-11-20 05:54] LABS: ALT (SGPT) 24 U/L (8-55); AST (SGOT) 21 U/L (5-34); Albumin 4.1 g/dL (3.5-5.0); Alkaline Phosphatase 112 U/L (40-110); Anion Gap 14 mmol/L (10-20); BUN (Urea Nitrogen) 12 mg/dL (8.9-20.6); Bilirubin, Total 0.2 mg/dL (0.2-1.2); Calc. Creatinine Clearance 0 mL/min (70-130); Calcium 8.8 mg/dL (7.8-10.44); Carbon Dioxide 25 mmol/L (22-29); Chloride 103 mmol/L (98-107); Globulin 3.3 g/dL (2.4-3.5); Glucose 110 mg/dL (70-105); Lipase 38 U/L (8-78); Potassium 3.9 mmol/L (3.5-5.1); Protein, Total 7.4 g/dL (6.0-8.3); Sodium 138 mmol/L (136-145)
== END 2020-11-20 06:07 | disposition home or self-care (01) ==
LOC: ERS 04:37
DX: R10.31 Right lower quadrant pain (principal)
CPT/HCPCS: 36415; 80053; 82274; 83690; 85025; 86850; 86900; 86901; 96374; J2405

== ENCOUNTER 2021-01-29 16:23 | Emergency (ER) | payer SELFPAY ==
[2021-01-29 17:03] LABS: #Basophils 0.1 thou/uL (0.0-0.2); #Eosinphils 0.2 thou/uL (0.0-0.7); #Lymphocytes 1.6 thou/uL (1.20-3.40); #Monocytes 0.6 thou/uL (0.11-0.59); #Neutrophils 7.8 thou/uL (1.40-6.50); %Basophils 0.6 % (0.0-1.0); %Eosinophils 2.3 % (0.0-10.0); %Lymphocytes 15.1 % (21.0-51.0); %Monocytes 6.1 % (0.0-10.0); %Neutrophils 75.9 % (42.0-75.0); Hemoglobin 13.7 g/dL (14.0-18.0); Mean Corpuscular HGB CONC 31.6 g/dL (32.0-36.0); Mean Corpuscular Hemoglobin 26.6 pg (27.0-31.0); Mean Corpuscular Volume 84.1 fL (78.0-98.0); Mean Platelet Volume 9.5 fL (7.4-10.4); Platelet Count 188 thou/uL (130-400); RBC Distribution Width 14.3 % (11.5-14.5); Red Blood Cell (RBC) Count 5.16 mill/uL (4.70-6.10); White Blood Cell (WBC) Count 10.3 thou/uL (4.8-10.8)
[2021-01-29 17:32] LABS: ALT (SGPT) 30 U/L (8-55); AST (SGOT) 34 U/L (5-34); Albumin 4.6 g/dL (3.5-5.0); Alkaline Phosphatase 136 U/L (40-110); Anion Gap 15 mmol/L (10-20); BUN (Urea Nitrogen) 13 mg/dL (8.9-20.6); Bilirubin, Total 0.3 mg/dL (0.2-1.2); Calc. Creatinine Clearance 0 mL/min (70-130); Calcium 9.6 mg/dL (7.8-10.44); Carbon Dioxide 28 mmol/L (22-29); Chloride 102 mmol/L (98-107); Globulin 3.6 g/dL (2.4-3.5); Glucose 97 mg/dL (70-105); Potassium 4.8 mmol/L (3.5-5.1); Protein, Total 8.2 g/dL (6.0-8.3); Sodium 140 mmol/L (136-145)
== END 2021-01-29 17:45 | disposition home or self-care (01) ==
LOC: ERS 16:23
DX: R07.89 Other chest pain (principal); R04.2 Hemoptysis
CPT/HCPCS: 80053; 84484; 85025; 93005

== ENCOUNTER 2021-02-07 18:04 | Emergency (ER) | payer SELFPAY | END 2021-02-07 19:15 | disposition home or self-care (01) | LOC: ERS 18:04 | DX: R10.31 Right lower quadrant pain (principal) | CPT/HCPCS: 99281 ==

== ENCOUNTER 2021-05-14 12:47 | Emergency (ER) | payer SELFPAY ==
[2021-05-14 13:19] LABS: #Eosinphils 0.3 thou/uL (0.0-0.7); #Lymphocytes 1.6 thou/uL (1.20-3.40); #Monocytes 0.8 thou/uL (0.11-0.59); #Neutrophils 6.2 thou/uL (1.40-6.50); %Basophils 0.5 % (0.0-1.0); %Eosinophils 3.3 % (0.0-10.0); %Lymphocytes 18.2 % (21.0-51.0); %Monocytes 8.4 % (0.0-10.0); %Neutrophils 69.6 % (42.0-75.0); Hemoglobin 13.3 g/dL (14.0-18.0); Mean Corpuscular HGB CONC 33.4 g/dL (32.0-36.0); Mean Corpuscular Hemoglobin 28.5 pg (27.0-31.0); Mean Corpuscular Volume 85.4 fL (78.0-98.0); Mean Platelet Volume 9.3 fL (7.4-10.4); Platelet Count 145 thou/uL (130-400); RBC Distribution Width 14.7 % (11.5-14.5); Red Blood Cell (RBC) Count 4.65 mill/uL (4.70-6.10); White Blood Cell (WBC) Count 8.9 thou/uL (4.8-10.8)
[2021-05-14 13:39] LABS: ALT (SGPT) 38 U/L (8-55); AST (SGOT) 30 U/L (5-34); Albumin 4.2 g/dL (3.5-5.0); Alkaline Phosphatase 109 U/L (40-110); Anion Gap 10 mmol/L (10-20); BUN (Urea Nitrogen) 11 mg/dL (8.9-20.6); Bilirubin, Total 0.3 mg/dL (0.2-1.2); Calc. Creatinine Clearance 0 mL/min (70-130); Calcium 9.8 mg/dL (7.8-10.44); Carbon Dioxide 29 mmol/L (22-29); Chloride 102 mmol/L (98-107); Glucose 112 mg/dL (70-105); Lipase 23 U/L (8-78); Potassium 4.1 mmol/L (3.5-5.1); Protein, Total 8.2 g/dL (6.0-8.3); Sodium 137 mmol/L (136-145)
== END 2021-05-14 18:05 | disposition left against medical advice (07) ==
LOC: ERS 12:47
DX: R07.2 Precordial pain (principal); K62.5 Hemorrhage of anus and rectum; R50.9 Fever, unspecified
CPT/HCPCS: 36415; 71045; 80053; 83690; 84484; 85025; 93005

== ENCOUNTER 2021-07-05 04:56 | Emergency (ER) | payer SELFPAY ==
[2021-07-05] MEDS ORDERED: Ketorolac Tromethamine 30 MG/ML VIAL ONE (05:50)
[2021-07-05 05:53] LABS: Bacteria/HPF None Seen HPF (None Seen); Bilirubin Negative (Negative); Blood, Urine Negative (Negative); Clarity Clear (Clear); Glucose, Urine (Dipstick) Normal (Negative); Ketone, Urine Negative (Negative); Leukocyte 25 Leu/uL (Negative); Nitrite Negative (Negative); Protein, Urine (Dipstick) Negative (Neg-Trace); RBC/HPF None Seen HPF (0-3); Specific Gravity, Urine 1.018 (1.002-1.036); Squamous Epithelial 0-3 HPF (0-3); Urobilinogen Normal mg/dL (Less than 2); WBC/HPF 0-3 HPF (0-3)
[2021-07-05 06:12] LABS: #Basophils 0.1 thou/uL (0.0-0.2); #Eosinphils 0.3 thou/uL (0.0-0.7); #Lymphocytes 1.6 thou/uL (1.20-3.40); #Monocytes 0.5 thou/uL (0.11-0.59); #Neutrophils 5.7 thou/uL (1.40-6.50); %Basophils 0.7 % (0.0-1.0); %Eosinophils 3.9 % (0.0-10.0); %Monocytes 6.5 % (0.0-10.0); %Neutrophils 69.8 % (42.0-75.0); Hemoglobin 11.6 g/dL (14.0-18.0); Mean Corpuscular HGB CONC 32.8 g/dL (32.0-36.0); Mean Corpuscular Hemoglobin 27.9 pg (27.0-31.0); Mean Platelet Volume 9.7 fL (7.4-10.4); Platelet Count 159 thou/uL (130-400); RBC Distribution Width 14.8 % (11.5-14.5); Red Blood Cell (RBC) Count 4.16 mill/uL (4.70-6.10); White Blood Cell (WBC) Count 8.2 thou/uL (4.8-10.8)
[2021-07-05 06:30] LABS: ALT (SGPT) 28 U/L (8-55); AST (SGOT) 28 U/L (5-34); Albumin 4.1 g/dL (3.5-5.0); Alkaline Phosphatase 103 U/L (40-110); Anion Gap 14 mmol/L (10-20); BUN (Urea Nitrogen) 16 mg/dL (8.9-20.6); Bilirubin, Total 0.2 mg/dL (0.2-1.2); Calc. Creatinine Clearance 0 mL/min (70-130); Carbon Dioxide 24 mmol/L (22-29); Chloride 103 mmol/L (98-107); Globulin 3.2 g/dL (2.4-3.5); Glucose 122 mg/dL (70-105); Lipase 54 U/L (8-78); Potassium 4.5 mmol/L (3.5-5.1); Protein, Total 7.3 g/dL (6.0-8.3); Sodium 136 mmol/L (136-145)
== END 2021-07-05 07:15 | disposition home or self-care (01) ==
LOC: ERS 04:56
DX: R10.31 Right lower quadrant pain (principal); R30.0 Dysuria
CPT/HCPCS: 36415; 80053; 81003; 81015; 83690; 85025; 87086; 96372; 99283; J1885

== ENCOUNTER 2022-02-13 05:57 | Emergency (ER) | payer SELFPAY | END 2022-02-13 06:13 | disposition left against medical advice (07) | LOC: ERS 05:57 | DX: Z53.21 Procedure and treatment not carried out due to patient leaving prior to being seen by health care provider (principal) | CPT/HCPCS: 93005 ==

== ENCOUNTER 2022-02-23 10:26 | Emergency (ER) | payer SELFPAY ==
[2022-02-23 10:58] LABS: #Basophils 0.1 thou/uL (0.0-0.2); #Eosinphils 0.2 thou/uL (0.0-0.7); #Lymphocytes 1.3 thou/uL (1.20-3.40); #Monocytes 0.7 thou/uL (0.11-0.59); #Neutrophils 6.2 thou/uL (1.40-6.50); %Basophils 0.6 % (0.0-1.0); %Eosinophils 2.8 % (0.0-10.0); %Lymphocytes 15.3 % (21.0-51.0); %Monocytes 8.3 % (0.0-10.0); %Neutrophils 72.9 % (42.0-75.0); Hemoglobin 11.7 g/dL (14.0-18.0); Mean Corpuscular Hemoglobin 26.9 pg (27.0-31.0); Mean Platelet Volume 9.1 fL (7.4-10.4); Platelet Count 152 thou/uL (130-400); RBC Distribution Width 14.6 % (11.5-14.5); Red Blood Cell (RBC) Count 4.37 mill/uL (4.70-6.10); White Blood Cell (WBC) Count 8.4 thou/uL (4.8-10.8)
[2022-02-23 11:32] LABS: ALT (SGPT) 22 U/L (8-55); AST (SGOT) 23 U/L (5-34); Alkaline Phosphatase 99 U/L (40-110); Anion Gap 17 mmol/L (10-20); BUN (Urea Nitrogen) 13 mg/dL (8.9-20.6); Bilirubin, Total 0.4 mg/dL (0.2-1.2); CK (CPK) 63 U/L (30-200); Calc. Creatinine Clearance 0 mL/min (70-130); Calcium 9.1 mg/dL (7.8-10.44); Carbon Dioxide 18 mmol/L (22-29); Chloride 106 mmol/L (98-107); Globulin 3.5 g/dL (2.4-3.5); Glucose 96 mg/dL (70-105); Potassium 4.3 mmol/L (3.5-5.1); Protein, Total 7.5 g/dL (6.0-8.3); Sodium 137 mmol/L (136-145)
[2022-02-23] MEDS ORDERED: Ibuprofen 200 MG TAB ONE (14:49)
[2022-02-23 15:02] LABS: Troponin I Less than 0.010 ng/mL (< 0.028)
[2022-02-23 15:15] LABS: Bilirubin Negative (Negative); Blood, Urine Negative (Negative); Clarity Clear (Clear); Glucose, Urine (Dipstick) Normal (Negative); Ketone, Urine Negative (Negative); Leukocyte Negative Leu/uL (Negative); Nitrite Negative (Negative); Protein, Urine (Dipstick) Negative (Neg-Trace); Specific Gravity, Urine 1.014 (1.002-1.036); Urobilinogen Normal mg/dL (Less than 2); pH, Urine 5.5 (5.0-9.0)
== END 2022-02-23 16:45 | disposition home or self-care (01) ==
LOC: ERS 10:26
DX: R07.2 Precordial pain (principal); R30.0 Dysuria
CPT/HCPCS: 36415; 71045; 80053; 81003; 82550; 84484; 85025; 93005

== ENCOUNTER 2022-03-09 14:45 | Emergency (ER) | payer SELFPAY ==
[2022-03-09 15:23] LABS: #Eosinphils 0.3 thou/uL (0.0-0.7); #Lymphocytes 0.8 thou/uL (1.20-3.40); #Monocytes 0.5 thou/uL (0.11-0.59); #Neutrophils 6.8 thou/uL (1.40-6.50); %Basophils 0.2 % (0.0-1.0); %Eosinophils 3.1 % (0.0-10.0); %Lymphocytes 9.6 % (21.0-51.0); %Monocytes 6.3 % (0.0-10.0); %Neutrophils 80.9 % (42.0-75.0); Hemoglobin 10.1 g/dL (14.0-18.0); Mean Corpuscular HGB CONC 31.6 g/dL (32.0-36.0); Mean Corpuscular Hemoglobin 26.5 pg (27.0-31.0); Mean Corpuscular Volume 83.8 fL (78.0-98.0); Mean Platelet Volume 8.8 fL (7.4-10.4); Platelet Count 147 thou/uL (130-400); RBC Distribution Width 14.2 % (11.5-14.5); Red Blood Cell (RBC) Count 3.83 mill/uL (4.70-6.10); White Blood Cell (WBC) Count 8.4 thou/uL (4.8-10.8)
[2022-03-09 15:47] LABS: ALT (SGPT) 18 U/L (8-55); AST (SGOT) 19 U/L (5-34); Alkaline Phosphatase 105 U/L (40-110); Anion Gap 15 mmol/L (10-20); BUN (Urea Nitrogen) 12 mg/dL (8.9-20.6); Bilirubin, Total 0.2 mg/dL (0.2-1.2); Calc. Creatinine Clearance 0 mL/min (70-130); Calcium 8.5 mg/dL (7.8-10.44); Carbon Dioxide 24 mmol/L (22-29); Chloride 105 mmol/L (98-107); Estimated GFR 88; Globulin 2.8 g/dL (2.4-3.5); Glucose 146 mg/dL (70-105); Lipase 30 U/L (8-78); Protein, Total 6.8 g/dL (6.0-8.3); Sodium 140 mmol/L (136-145)
== END 2022-03-09 17:00 | disposition home or self-care (01) ==
LOC: ERS 14:45
DX: R07.9 Chest pain, unspecified (principal)
CPT/HCPCS: 71045; 80053; 83690; 84484; 85025; 93005

== ENCOUNTER 2022-03-22 10:09 | Emergency (ER) | payer SELFPAY ==
[2022-03-22 11:25] LABS: #Eosinphils 0.4 thou/uL (0.0-0.7); #Lymphocytes 1.4 thou/uL (1.20-3.40); #Monocytes 0.6 thou/uL (0.11-0.59); %Basophils 0.1 % (0.0-1.0); %Eosinophils 5.2 % (0.0-10.0); %Lymphocytes 18.3 % (21.0-51.0); %Monocytes 8.6 % (0.0-10.0); %Neutrophils 67.8 % (42.0-75.0); Hemoglobin 10.9 g/dL (14.0-18.0); Mean Corpuscular HGB CONC 31.9 g/dL (32.0-36.0); Mean Corpuscular Hemoglobin 26.6 pg (27.0-31.0); Mean Corpuscular Volume 83.4 fL (78.0-98.0); Mean Platelet Volume 9.3 fL (7.4-10.4); Platelet Count 161 thou/uL (130-400); Red Blood Cell (RBC) Count 4.12 mill/uL (4.70-6.10); White Blood Cell (WBC) Count 7.4 thou/uL (4.8-10.8)
[2022-03-22 11:52] LABS: ALT (SGPT) 19 U/L (8-55); AST (SGOT) 18 U/L (5-34); Albumin 4.1 g/dL (3.5-5.0); Alkaline Phosphatase 109 U/L (40-110); Anion Gap 12 mmol/L (10-20); BUN (Urea Nitrogen) 11 mg/dL (8.9-20.6); Bilirubin, Total 0.2 mg/dL (0.2-1.2); Calc. Creatinine Clearance 0 mL/min (70-130); Calcium 8.7 mg/dL (7.8-10.44); Carbon Dioxide 26 mmol/L (22-29); Chloride 105 mmol/L (98-107); Estimated GFR 87; Globulin 2.8 g/dL (2.4-3.5); Glucose 104 mg/dL (70-105); Lipase 48 U/L (8-78); Potassium 4.2 mmol/L (3.5-5.1); Protein, Total 6.9 g/dL (6.0-8.3); Sodium 139 mmol/L (136-145)
[2022-03-22] MEDS ORDERED: Ketorolac Tromethamine 30 MG/ML VIAL ONE (12:24)
[2022-03-22] MEDS ORDERED: diphenhydrAMINE 25 MG CAP ONE (13:44)
[2022-03-22] MEDS ORDERED: Iopamidol-370 76% 500 ML 1 ML ONE (15:44)
== END 2022-03-22 14:00 | disposition home or self-care (01) ==
LOC: ERS 10:09
DX: D64.9 Anemia, unspecified (principal); R10.31 Right lower quadrant pain
CPT/HCPCS: 36415; 74177; 80053; 82274; 83690; 85025; 93005; 96372; J1885; Q9967

== ENCOUNTER 2022-04-08 11:49 | Emergency (ER) | payer SELFPAY ==
[2022-04-08 12:55] LABS: #Eosinphils 0.1 thou/uL (0.0-0.7); #Lymphocytes 1.5 thou/uL (1.20-3.40); #Monocytes 0.6 thou/uL (0.11-0.59); #Neutrophils 6.1 thou/uL (1.40-6.50); %Basophils 0.4 % (0.0-1.0); %Eosinophils 1.7 % (0.0-10.0); %Lymphocytes 17.5 % (21.0-51.0); %Monocytes 6.6 % (0.0-10.0); %Neutrophils 73.7 % (42.0-75.0); Hemoglobin 9.7 g/dL (14.0-18.0); Mean Corpuscular HGB CONC 31.1 g/dL (32.0-36.0); Mean Corpuscular Hemoglobin 26.2 pg (27.0-31.0); Mean Corpuscular Volume 84.4 fL (78.0-98.0); Mean Platelet Volume 9.9 fL (7.4-10.4); Platelet Count 155 thou/uL (130-400); RBC Distribution Width 15.2 % (11.5-14.5); Red Blood Cell (RBC) Count 3.71 mill/uL (4.70-6.10); White Blood Cell (WBC) Count 8.3 thou/uL (4.8-10.8)
[2022-04-08 13:16] LABS: ALT (SGPT) 16 U/L (8-55); AST (SGOT) 14 U/L (5-34); Albumin 3.9 g/dL (3.5-5.0); Alkaline Phosphatase 88 U/L (40-110); Anion Gap 15 mmol/L (10-20); BUN (Urea Nitrogen) 17 mg/dL (8.9-20.6); Bilirubin, Total 0.4 mg/dL (0.2-1.2); Calc. Creatinine Clearance 0 mL/min (70-130); Calcium 8.8 mg/dL (7.8-10.44); Carbon Dioxide 26 mmol/L (22-29); Chloride 102 mmol/L (98-107); Estimated GFR 62; Globulin 3.1 g/dL (2.4-3.5); Glucose 89 mg/dL (70-105); Potassium 4.1 mmol/L (3.5-5.1); Sodium 139 mmol/L (136-145)
== END 2022-04-08 15:13 | disposition home or self-care (01) ==
LOC: ERS 11:49
DX: R07.89 Other chest pain (principal)
CPT/HCPCS: 36415; 80053; 84484; 85025; 93005

== ENCOUNTER 2022-04-30 14:47 | Emergency (ER) | payer SELFPAY ==
[2022-04-30] MEDS ORDERED: Ketorolac Tromethamine 30 MG/ML VIAL ONE (15:13)
[2022-04-30 15:23] LABS: #Eosinphils 0.2 thou/uL (0.0-0.7); #Lymphocytes 1.2 thou/uL (1.20-3.40); #Monocytes 0.6 thou/uL (0.11-0.59); #Neutrophils 6.2 thou/uL (1.40-6.50); %Basophils 0.2 % (0.0-1.0); %Eosinophils 2.5 % (0.0-10.0); %Lymphocytes 14.3 % (21.0-51.0); %Monocytes 7.1 % (0.0-10.0); %Neutrophils 75.9 % (42.0-75.0); Hemoglobin 10.5 g/dL (14.0-18.0); Mean Corpuscular Hemoglobin 26.1 pg (27.0-31.0); Mean Corpuscular Volume 81.6 fL (78.0-98.0); Mean Platelet Volume 9.9 fL (7.4-10.4); Platelet Count 149 thou/uL (130-400); Red Blood Cell (RBC) Count 4.05 mill/uL (4.70-6.10); White Blood Cell (WBC) Count 8.2 thou/uL (4.8-10.8)
[2022-04-30 15:24] LABS: Bacteria/HPF None Seen HPF (None Seen); Bilirubin Negative (Negative); Blood, Urine Negative (Negative); Clarity Clear (Clear); Glucose, Urine (Dipstick) Normal (Negative); Ketone, Urine Negative (Negative); Leukocyte 25 Leu/uL (Negative); Nitrite Negative (Negative); Protein, Urine (Dipstick) Negative (Neg-Trace); RBC/HPF None Seen HPF (0-3); Specific Gravity, Urine 1.007 (1.002-1.036); Squamous Epithelial None Seen HPF (0-3); Urobilinogen Normal mg/dL (Less than 2); WBC/HPF 0-3 HPF (0-3); pH, Urine 5.5 (5.0-9.0)
[2022-04-30 15:53] LABS: ALT (SGPT) 19 U/L (8-55); AST (SGOT) 17 U/L (5-34); Albumin 4.2 g/dL (3.5-5.0); Alkaline Phosphatase 112 U/L (40-110); Anion Gap 15 mmol/L (10-20); BUN (Urea Nitrogen) 12 mg/dL (8.9-20.6); Bilirubin, Total 0.2 mg/dL (0.2-1.2); Calc. Creatinine Clearance 0 mL/min (70-130); Calcium 9.1 mg/dL (7.8-10.44); Carbon Dioxide 22 mmol/L (22-29); Chloride 105 mmol/L (98-107); Estimated GFR 79; Globulin 3.3 g/dL (2.4-3.5); Glucose 102 mg/dL (70-105); Lipase 34 U/L (8-78); Potassium 4.2 mmol/L (3.5-5.1); Protein, Total 7.5 g/dL (6.0-8.3); Sodium 138 mmol/L (136-145)
== END 2022-04-30 16:30 | disposition home or self-care (01) ==
LOC: ERS 14:47
DX: D64.9 Anemia, unspecified (principal); R10.11 Right upper quadrant pain; R03.0 Elevated blood-pressure reading, without diagnosis of hypertension
CPT/HCPCS: 36415; 76705; 80053; 81003; 81015; 83690; 84484; 85025; 93005; 96374; J1885

== ENCOUNTER 2022-07-17 21:33 | Emergency (ER) | payer SELFPAY ==
[2022-07-17 22:17] LABS: #Eosinphils 0.2 thou/uL (0.0-0.7); #Monocytes 0.9 thou/uL (0.11-0.59); #Neutrophils 6.8 thou/uL (1.40-6.50); %Basophils 0.1 % (0.0-1.0); %Eosinophils 2.1 % (0.0-10.0); %Monocytes 10.5 % (0.0-10.0); %Neutrophils 76.2 % (42.0-75.0); Hemoglobin 10.8 g/dL (14.0-18.0); Mean Corpuscular HGB CONC 31.4 g/dL (32.0-36.0); Mean Corpuscular Volume 82.7 fl (78.0-98.0); Mean Platelet Volume 9.7 fL (7.4-10.4); Platelet Count 144 thou/uL (130-400); RBC Distribution Width 15.9 % (11.5-14.5); Red Blood Cell (RBC) Count 4.17 mill/uL (4.70-6.10); White Blood Cell (WBC) Count 8.9 thou/uL (4.8-10.8)
[2022-07-17] MEDS ORDERED: Acetaminophen 500 MG TAB ONE (22:26)
[2022-07-17 22:39] LABS: ALT (SGPT) 26 U/L (8-55); AST (SGOT) 22 U/L (5-34); Albumin 4.1 g/dL (3.5-5.0); Alkaline Phosphatase 110 U/L (40-110); Anion Gap 14 mmol/L (10-20); BUN (Urea Nitrogen) 17 mg/dL (8.9-20.6); Bilirubin, Total 0.2 mg/dL (0.2-1.2); CK (CPK) 87 U/L (30-200); Calc. Creatinine Clearance 0 mL/min (70-130); Calcium 8.9 mg/dL (7.8-10.44); Carbon Dioxide 22 mmol/L (22-29); Chloride 105 mmol/L (98-107); Estimated GFR 70; Globulin 2.7 g/dL (2.4-3.5); Glucose 107 mg/dL (70-105); Potassium 4.2 mmol/L (3.5-5.1); Protein, Total 6.8 g/dL (6.0-8.3); Sodium 137 mmol/L (136-145)
== END 2022-07-18 00:33 | disposition home or self-care (01) ==
LOC: ERS 21:33
DX: R07.89 Other chest pain (principal); M54.50 Low back pain, unspecified
CPT/HCPCS: 36415; 71045; 80053; 82550; 84484; 85025; 93005

== ENCOUNTER 2022-07-20 15:17 | Emergency (ER) | payer SELFPAY ==
[~2022-07-20 15:17] MED LIST: Iopamidol-370 76% 500 ML 1 ML ONE
[2022-07-20 16:04] LABS: #Eosinphils 0.2 thou/uL (0.0-0.7); #Lymphocytes 1.2 thou/uL (1.20-3.40); #Monocytes 0.5 thou/uL (0.11-0.59); #Neutrophils 5.1 thou/uL (1.40-6.50); %Basophils 0.4 % (0.0-1.0); %Eosinophils 3.1 % (0.0-10.0); %Monocytes 7.6 % (0.0-10.0); %Neutrophils 71.9 % (42.0-75.0); Hemoglobin 10.1 g/dL (14.0-18.0); Mean Corpuscular HGB CONC 30.7 g/dL (32.0-36.0); Mean Corpuscular Hemoglobin 25.5 pg (27.0-31.0); Mean Corpuscular Volume 82.9 fl (78.0-98.0); Mean Platelet Volume 9.7 fL (7.4-10.4); Platelet Count 140 10x3/uL (130-400); RBC Distribution Width 15.9 % (11.5-14.5); Red Blood Cell (RBC) Count 3.96 mill/uL (4.70-6.10); White Blood Cell (WBC) Count 7.1 10x3/uL (4.8-10.8)
[2022-07-20 16:18] LABS: ALT (SGPT) 21 U/L (8-55); AST (SGOT) 17 U/L (5-34); Alkaline Phosphatase 101 U/L (40-110); Anion Gap 12 mmol/L (10-20); BUN (Urea Nitrogen) 11 mg/dL (8.9-20.6); Bilirubin, Total 0.3 mg/dL (0.2-1.2); Calc. Creatinine Clearance 0 mL/min (70-130); Calcium 8.6 mg/dL (7.8-10.44); Carbon Dioxide 23 mmol/L (22-29); Chloride 108 mmol/L (98-107); Estimated GFR 82; Globulin 3.1 g/dL (2.4-3.5); Glucose 114 mg/dL (70-105); Lipase 30 U/L (8-78); Potassium 3.9 mmol/L (3.5-5.1); Protein, Total 7.1 g/dL (6.0-8.3); Sodium 139 mmol/L (136-145)
[2022-07-20] MEDS ORDERED: Famotidine/PF 20 mg/2ml Vial ONE (17:52)
[2022-07-20] MEDS ORDERED: methylPREDNISolone Sod Succ/PF 125 MG/2 ML VIAL ONE (17:52)
[2022-07-20] MEDS ORDERED: diphenhydrAMINE 50 MG/ML VIAL ONE (17:52)
[2022-07-20] MEDS ORDERED: cefTRIAXone\\ROCEPHIN 1 GM VIAL ONE (19:07)
== END 2022-07-20 20:09 | disposition home or self-care (01) ==
LOC: ERS 15:17
DX: N10 Acute pyelonephritis (principal)
CPT/HCPCS: 36415; 74177; 80053; 83690; 85025; 96365; 96375; J0696; J1200; J2930; Q9967; S0028

== ENCOUNTER 2022-09-15 10:58 | Emergency (ER) | payer SELFPAY ==
[2022-09-15 11:27] LABS: #Eosinphils 0.2 thou/uL (0.0-0.7); #Lymphocytes 0.8 thou/uL (1.20-3.40); #Monocytes 0.5 thou/uL (0.11-0.59); #Neutrophils 4.9 thou/uL (1.40-6.50); %Basophils 0.1 % (0.0-1.0); %Eosinophils 2.8 % (0.0-10.0); %Lymphocytes 11.8 % (21.0-51.0); %Monocytes 8.5 % (0.0-10.0); %Neutrophils 76.8 % (42.0-75.0); Hemoglobin 9.9 g/dL (14.0-18.0); Mean Corpuscular HGB CONC 31.3 g/dL (32.0-36.0); Mean Corpuscular Hemoglobin 26.7 pg (27.0-31.0); Mean Corpuscular Volume 85.4 fl (78.0-98.0); Mean Platelet Volume 10.1 fL (7.4-10.4); Platelet Count 128 10x3/uL (130-400); RBC Distribution Width 16.7 % (11.5-14.5); White Blood Cell (WBC) Count 6.4 10x3/uL (4.8-10.8)
[2022-09-15] MEDS ORDERED: Acetaminophen 500 MG TAB ONE (11:44)
[2022-09-15] MEDS ORDERED: Ondansetron ODT 4 MG TAB ONE (11:44)
[2022-09-15 11:48] LABS: ALT (SGPT) 7 U/L (8-55); AST (SGOT) 19 U/L (5-34); Albumin 4.2 g/dL (3.5-5.0); Alkaline Phosphatase 107 U/L (40-110); Anion Gap 14 mmol/L (10-20); BUN (Urea Nitrogen) 10 mg/dL (8.9-20.6); Bilirubin, Total 0.3 mg/dL (0.2-1.2); Calc. Creatinine Clearance 0 mL/min (70-130); Calcium 8.9 mg/dL (7.8-10.44); Carbon Dioxide 23 mmol/L (22-29); Chloride 106 mmol/L (98-107); Estimated GFR 75; Globulin 3.1 g/dL (2.4-3.5); Glucose 128 mg/dL (70-105); Lipase 38 U/L (8-78); Potassium 3.8 mmol/L (3.5-5.1); Protein, Total 7.3 g/dL (6.0-8.3); Sodium 139 mmol/L (136-145)
== END 2022-09-15 14:00 | disposition home or self-care (01) ==
LOC: ERS 10:58
DX: R11.2 Nausea with vomiting, unspecified (principal); R10.9 Unspecified abdominal pain
CPT/HCPCS: 36415; 74176; 80053; 83690; 85025; Q0162

== ENCOUNTER 2023-07-21 02:49 | Emergency (ER) | payer SELFPAY ==
[2023-07-21] MEDS ORDERED: Ondansetron ODT 4 MG TAB ONE (03:58)
[2023-07-21] MEDS ORDERED: Acetaminophen 500 MG TAB ONE (03:58)
== END 2023-07-21 04:10 | disposition left against medical advice (07) ==
LOC: ERS 02:49
DX: R10.9 Unspecified abdominal pain (principal)
CPT/HCPCS: 99284; Q0162

== ENCOUNTER 2025-05-28 04:13 | Emergency (ER) | payer OTHER ==
[2025-05-28 05:36] LABS: Bacteria/HPF None Seen HPF (None Seen); CAUTI Indications for Culture Pelvic or flank pain; Glucose, Urine (Dipstick) Normal (Negative); Leukocyte Negative Leu/uL (Negative); Protein, Urine (Dipstick) Negative (Neg-Trace); RBC/HPF None Seen HPF (0-3); Specific Gravity, Urine 1.010 (1.002-1.036); WBC/HPF 0-3 HPF (0-3)
[2025-05-28 05:38] LABS: ALT (SGPT) 11 U/L (Less than 45); AST (SGOT) 21 U/L (11-34); Albumin 3.9 g/dL (3.1-4.5); Alkaline Phosphatase 81 U/L (40-110); Anion Gap 16 mmol/L (10-20); BUN (Urea Nitrogen) 14 mg/dL (8.9-20.6); Bilirubin, Total 0.3 mg/dL (0.3-1.2); Calc. Creatinine Clearance 0 mL/min (70-130); Calcium 9.1 mg/dL (7.8-10.44); Carbon Dioxide 21 mmol/L (22-29); Chloride 106 mmol/L (98-107); Globulin 2.9 g/dL (2.4-3.5); Glucose 97 mg/dL (70-105); Lipase 30 U/L (8-78); Potassium 3.7 mmol/L (3.5-5.1); Sodium 139 mmol/L (136-145)
[2025-05-28 05:42] LABS: Urine Culture Reflex No No
[2025-05-28 06:19] LABS: #Basophils Less than 0.03 10x3/uL (0.0-0.2); #Eosinophils 0.29 10x3/uL (0.0-0.7); #Monocytes 0.74 10x3/uL (0.11-0.59); #Neutrophils 4.44 10x3/uL (1.40-6.50); %Basophils 0.3 % (0.0-1.0); %Eosinophils 4.4 % (0.0-10.0); %Lymphocytes 15.5 % (21.0-51.0); %Monocytes 11.2 % (0.0-10.0); %Neutrophils 67.4 % (42.0-75.0); Hematocrit 34.1 % (42.0-52.0); Hemoglobin 10.5 g/dL (14.0-18.0); Mean Corpuscular Hemoglobin 29.3 pg (27.0-31.0); Mean Corpuscular Volume 95.3 fL (78.0-98.0); Platelet Count 102 10x3/uL (130-400); Red Blood Cell (RBC) Count 3.58 mill/uL (4.70-6.10); White Blood Cell (WBC) Count 6.59 10x3/uL (4.8-10.8)
[2025-05-28] MEDS ORDERED: Pantoprazole 40 MG VIAL ONE (07:19)
== END 2025-05-28 09:14 | disposition home or self-care (01) ==
LOC: ERS 04:13
DX: R10.31 Right lower quadrant pain (principal); G89.29 Other chronic pain; E11.9 Type 2 diabetes mellitus without complications; I10 Essential (primary) hypertension; X50.0XXA Overexertion from strenuous movement or load, initial encounter
CPT/HCPCS: 36415; 74176; 80053; 81001; 83690; 85025; 96374; 96375; J2270; J2470

== ENCOUNTER 2025-07-02 03:25 | Emergency (ER) | payer OTHER ==
[2025-07-02 04:06] LABS: Bacteria/HPF None Seen HPF (None Seen); CAUTI Indications for Culture Pelvic or flank pain; Glucose, Urine (Dipstick) Normal (Negative); Leukocyte Negative Leu/uL (Negative); Protein, Urine (Dipstick) Negative (Neg-Trace); RBC/HPF None Seen HPF (0-3); Specific Gravity, Urine 1.003 (1.002-1.036); WBC/HPF None Seen HPF (0-3)
[2025-07-02 04:34] LABS: Urine Culture Reflex No No
== END 2025-07-02 06:48 | disposition left against medical advice (07) ==
LOC: ERS 03:25
DX: Z53.21 Procedure and treatment not carried out due to patient leaving prior to being seen by health care provider (principal)
CPT/HCPCS: 81001

== ENCOUNTER 2025-07-30 02:59 | Emergency (ER) | payer OTHER ==
[2025-07-30 07:35] LABS: #Basophils Less than 0.03 10x3/uL (0.0-0.2); #Eosinophils 0.22 10x3/uL (0.0-0.7); #Monocytes 0.58 10x3/uL (0.11-0.59); #Neutrophils 5.14 10x3/uL (1.40-6.50); %Basophils 0.3 % (0.0-1.0); %Eosinophils 3.2 % (0.0-10.0); %Lymphocytes 12.7 % (21.0-51.0); %Monocytes 8.5 % (0.0-10.0); %Neutrophils 74.9 % (42.0-75.0); Hematocrit 35.0 % (42.0-52.0); Hemoglobin 10.7 g/dL (14.0-18.0); Mean Corpuscular Hemoglobin 27.1 pg (27.0-31.0); Mean Corpuscular Volume 88.6 fL (78.0-98.0); Platelet Count 128 10x3/uL (130-400); Red Blood Cell (RBC) Count 3.95 mill/uL (4.70-6.10); White Blood Cell (WBC) Count 6.86 10x3/uL (4.8-10.8)
[2025-07-30 07:50] LABS: ALT (SGPT) 14 U/L (Less than 45); AST (SGOT) 22 U/L (11-34); Albumin 4.0 g/dL (3.1-4.5); Alkaline Phosphatase 93 U/L (40-110); Anion Gap 15 mmol/L (10-20); BUN (Urea Nitrogen) 11 mg/dL (8.9-20.6); Bilirubin, Total 0.2 mg/dL (0.3-1.2); Calc. Creatinine Clearance 0 mL/min (70-130); Calcium 9.4 mg/dL (7.8-10.44); Carbon Dioxide 24 mmol/L (22-29); Chloride 106 mmol/L (98-107); Globulin 3.3 g/dL (2.4-3.5); Glucose 96 mg/dL (70-105); Lipase 33 U/L (8-78); Magnesium 1.8 mg/dL (1.6-2.6); Potassium 3.9 mmol/L (3.5-5.1); Sodium 141 mmol/L (136-145)
[2025-07-30 08:23] LABS: Bacteria/HPF None Seen HPF (None Seen); CAUTI Indications for Culture Pelvic or flank pain; Glucose, Urine (Dipstick) Normal (Negative); Leukocyte Negative Leu/uL (Negative); Protein, Urine (Dipstick) Negative (Neg-Trace); RBC/HPF 0-3 HPF (0-3); Specific Gravity, Urine 1.008 (1.002-1.036); WBC/HPF 0-3 HPF (0-3)
[2025-07-30 08:27] LABS: Urine Culture Reflex No No
== END 2025-07-30 08:20 | disposition home or self-care (01) ==
LOC: ERS 02:59
DX: K59.00 Constipation, unspecified (principal)
CPT/HCPCS: 74176; 80053; 81001; 83690; 83735; 85025; 96374